=== PATIENT | female | born 2005 | race Caucasian/White ===

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

== ENCOUNTER 2025-06-11 06:46 | Emergency (ER) | payer OTHER ==
--- OUTSIDE RECORDS SUMMARY | 2025-06-11 06:56 | XMS REPORT | Continuity of Care Document ---
Author Name Unknown Address [address] [facility] [address] [place] [address] [facility] 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 Name Role Phone Kaila Bernal Primary Care Physician FRANCISCA TAPIA Attending Clinician BI Conroy Attending Clinician UnaDIONICIO Rod Attending Clinician Unavailable [id number] Attending Clinician Unavailable DOROTHEA RAMIREZ Attending Clinician Unavailab DOROTHEA Garcia Attending Clinician Unavailab Obrien RN, Savi Simmons Attending Clinician Riya Rouse RN, Daja Gardner Attending Clinician Unavail able ALFRED HIGGINS Attending Clinician UnavailALFRED Manzano Attending Clinician UnavailDorothea Mota DO Attending Clinician [phone] Rob [facility] Desean BAGLEY Attending Clinician DESEAN ALZAR Attending Clinician Unavailable Doctor Unassigned, [place] Attending Clinician U navailable Vtc-Lab Attending Clinician Unavailable KEYSHA VENTURA Attending Clinician KEYSHA Hampton Attending Clinician Keysha Hampton MD Attending Clinician + Lily Warren Attending Clinician Unknown, Attending Attending Clinician Unavailab LILY Crawford Attending Clinician Unavailable Doctor Unassigned, [place] Attending Clinician U navailELLIOT Manuel Attending Clinician Unavailable Elliot Chambers MD Attending Clinician [phone] BEN SOOD Admitting Clinician Unavaila ble Payers Payer Name Policy Type Policy Number Effective Date Expirati on Date Source [facility] NETTIE HERNANDEZ-C COPAY FOCUS 9 [id number] 2025 00:00:00 [facility] W/ VICTORIA BENJAMIN OON [id number] 2025 00:00:00 [place] [facility] [id number] 2021 00:00:00 Problems Condition Name Condition Details Condition Category Status Onset Date Resolution Date Last Treatment Date Treating Clinician Comments Source Type 1 diabetes mellitus with ketoacidos is without coma (multi HCC) Type 1 diabetes mellitus with ketoacidos is without coma (multi HCC) Disease Active 05-03 00:00: 00 Victoria gardner Marijuana use Marijuana use Disease Active 05-03 00:00: 00 Victoria Arredondo l DKA, type 1, not at goal DKA, type 1, not at goal Disease Active 04-28 00:00: 00 [facility] Type 1 diabetes mellitus Type 1 diabetes mellitus Disease Active 04-11 00:00: 00 [facility] Allergies, Adverse Reactions, Alerts Allergy Name Allergy Type Status Severity Reaction(s) Onset Date Inactive Date Treating Clinician Comments Source NO KNOWN ALLERGIE S Drug Class Active [facility] Social History Social Habit Start Date Stop Date Quantity Comments Source ASSERTION Not Victoria Benjamin - External Sexual orientation K tanvi Benjamin - External Gender identity Adrienne Benjamin - External History of tobacco use Smokes tobacco daily Victoria Benjamin - External History of Social function 2025-05-30 00:00:00 2025-05-30 00:00:00 Victoria Benjamin - External Sex 2025-02-13 16:50:14 2025-02-13 16:50:14 Female (finding) Victoria Benjamin - External Exposure to SARS-CoV-2 (event) 2023-02-08 00:00:00 2023-02-18 20:29:00 Not sure [facility] Sex assigned at 2003 00:00:00 2005 00:00:00 Victoria Mcdonaldsalomekyle - External Smoking Status Start Date Stop Date Source Tobacco smoking consumption unknown [facility] Smokes tobacco daily 2025-05-03 00:00:00 Victoria Mcdonaldsalomekyle - External Medications Ordered Medication Name Filled Medication Name Start Date Stop Date Current Medication? Ordering Clinician Indication Dosage Frequency Signature (SIG) Comments Components Source Insulin Glargine (Lantus SoloStar) 100 UNIT/ML subcutaneou s Solution Pen-injecto r Insulin Glargine (Lantus SoloStar) 100 UNIT/ML subcutaneou s Solution Pen-injecto r 05-30 00:00: 00 Yes [id number] Inject 25 units daily in the morning. Victoria Mcdonaldsalomekyle - Externa l NaCl 0.9% (NS) bolus infusion 1,000 mL 05-22 18:30: 00 05-22 18:52 :00 No 1000mL at 999 mL/hr, 1,000 mL, IV Infusion, ONCE, 1 dose, On Wed05/22/25 at 1330, [facility] metoclopram beti HCl (REGLAN) injection 10 mg 05-22 17:45: 00 05-22 17:48 :00 No 10mg 10 mg, Slow IV Push, ONCE, 1 dose, On Wed05/22/25 at 1245, JOSELYN [facility] haloperidol lactate (HALDOL) injection 2.5 mg 05-22 17:45: 00 05-22 17:47 :00 No 2.5mg 2.5 mg, Intravenou s, ONCE, 1 dose, On Wed05/22/25 at 1245, STAT, Chemical Restraint: No, Reason for Use: Management of Acute Agitation/ Delirium (NOT CHEMICAL RESTRAINT) , Indication for use of Injectable Psychotrop ics: Other, Please Specify Other Indication : vomiting from THC [facility] Continuous Glucose Sensor (Dexcom G7 Sensor) does not apply Misc Continuous Glucose Sensor (Dexcom G7 Sensor) does not apply Misc 05-08 00:00: 00 Yes [id number] Change sensor every 10 days. Victoria Hallold - Externa l Insulin Lispro (HUMALOG) 100 unit/mL SQ injection Insulin Lispro (HUMALOG) 100 unit/mL SQ injection 05-03 00:00: 00 Yes [id number] 2U Inject 0.02 mL (2 units total) into the skin 3 times daily (before meals). Victoria Hallold - Externa l Insulin Glargine 100 UNIT/ML subcutaneou s Solution Insulin Glargine 100 UNIT/ML subcutaneou s Solution 05-03 00:00: 00 05-10 00:00 :00 No [id number] 10U QD Inject 0.1 mL (10 units total) into the skin daily. Victoria Benjamin - Patela l insulin glargine (LANTUS U-100) injection 10 Units 05-02 14:00: 00 05-01 22:20 :52 No 10U 10 Units, Subcutaneo us, DAILY, First dose (after last modificati on) on Wed05/02/25 at 0900, Until Discontinu ed, Routine [facility] Lantus SoloStar 100 UNIT/ML subcutaneou s Solution Pen-injecto r Lantus SoloStar 100 UNIT/ML subcutaneou s Solution Pen-injecto r 05-02 00:00: 00 05-30 00:00 :00 No INJECT 10 UNITS UNDER THE SKIN EVERY MORNING BEFORE BREAKFAST Victoria Benjamin - Externa l insulin lispro (human) (HumaLOG U-100) injection 2 Units 05-01 22:00: 00 05-01 22:20 :52 No 2U 2 Units, Subcutaneo us, TID MEALS, First dose (after last modificati on) on Wed05/01/25 at 1700, Until Discontinu ed, Routine [facility] insulin glargine (LANTUS U-100) injection 20 Units [id number] 7-15 17:00: 00 05-01 20:21 :05 Yes 20U 20 Units, Subcutaneo us, Q24H, First dose (after last modificati on) on Wed05/01/25 at 1200, Until Discontinu ed, Routine [facility] Sliding Scale Insulin - lispro (humaLOG) [id number] 7-15 12:30: 00 05-01 22:20 :52 Yes Subcutaneo us, AC+HS, First dose (after last modificati on) on Wed05/01/25 at 0730, Until Discontinu ed, Routine [facility] potassium chloride in water (KCL) 20 mEq/100 mL IV infusion 20 mEq potassium chloride in water (KCL) 20 mEq/100 mL IV infusion 20 mEq 05-01 10:45: 00 05-01 12:45 :00 Yes 20meq 20 mEq, IV Infusion, at 50 mL/hr Administer over 2 Hours, ONCE, 1 dose, On Wed05/01/25 at 0545, Routine [facility] magnesium sulfate in water 2 gram/50 mL (4 %) infusion 2 g magnesium sulfate in water 2 gram/50 mL (4 %) infusion 2 g 05-01 08:15: 00 05-01 10:40 :00 Yes 2g 2 g, Intravenou s, ONCE, 1 dose, On Wed05/01/25 at 0315, 50 mL [facility] clonazePAM (KLONOPIN) tablet 1 mg 05-01 06:30: 00 05-01 06:23 :00 No 1mg 1 mg, Oral, TID, 1 dose, First dose (after last modificati on) on Wed05/01/25 at 0130, Routine [facility] KCL (KLOR-CON M20) tablet 20 mEq KCL (KLOR-CON M20) tablet 20 mEq 05-01 03:15: 00 05-01 03:22 :00 Yes 20meq 20 mEq, Oral, ONCE, 1 dose, On Wed04/30/25 at 2215, Routine [facility] insulin glargine 100 unit/mL injection insulin glargine 100 unit/mL injection 05-01 00:00: 00 Yes [id number] 10U inject 10 Units under the skin in the morning. Before breakfast. If not eating or if blood sugar is between 80 and 120 give HALF the dose. If blood sugar less than 80: Eat a meal and recheck. Give half dose of insulin once blood sugar over 120. [facility] insulin lispro, human, 100 unit/mL injection insulin lispro, human, 100 unit/mL injection 05-01 00:00: 00 Yes [id number] 2U inject 2 Units under the skin in the morning and 2 Units at noon and 2 Units in the evening. inject before meals. ? If NOT eating or if blood sugar less than 80: SKIP insulin dose, eat and recheck in 15 minutes until sugar is above 100 twice in a row. ? If eating less than half your meal or if blood sugar is between 80 and 120: Take only half of your insulin dose [facility] Potassium Chloride Jessica ER 20 MEQ oral Tab CR tablet Potassium Chloride Jessica ER 20 MEQ oral Tab CR tablet 05-01 00:00: 00 05-30 00:00 :00 No [id number] 40meq QD Take 2 tablets (40 mEq total) by mouth daily. Victoria gardner insulin lispro (human) (HumaLOG U-100) injection 3 Units insulin lispro (human) (HumaLOG U-100) injection 3 Units 04-30 22:00: 00 05-01 20:21 :05 Yes 3U 3 Units, Subcutaneo us, TID MEALS, First dose (after last modificati on) on Wed04/30/25 at 1700, Until Discontinu ed, Routine [facility] insulin glargine (LANTUS U-100) injection 9 Units insulin glargine (LANTUS U-100) injection 9 Units 04-30 22:00: 00 04-30 21:55 :00 Yes 9U 9 Units, Subcutaneo us, ONCE, 1 dose, On Wed04/30/25 at 1700, Routine [facility] NaCl 0.45% (1/2NS) 1000 mL + KCL 20 mEq NaCl 0.45% (1/2NS) 1000 mL + KCL 20 mEq 04-30 14:45: 00 05-01 22:20 :52 Yes [facility] insulin lispro (human) (HumaLOG U-100) injection 9 Units 04-30 13:00: 00 04-30 17:06 :53 No 9U 9 Units, Subcutaneo us, TID MEALS, First dose on Wed04/30/25 at 0800, Until Discontinu ed, [facility] chloride in [facility] (KCL) 20 mEq/100 mL IV infusion 20 mEq potassium chloride in water (KCL) 20 mEq/100 mL IV infusion 20 mEq 04-30 10:45: 00 04-30 13:22 :28 Yes 20meq 20 mEq, IV Infusion, at 50 mL/hr Administer over 2 Hours, ONCE, 1 dose, On Wed04/30/25 at 0545, Routine [facility] potassium chloride in water 10 mEq/100 mL RTU 10 mEq potassium chloride in water 10 mEq/100 mL RTU 10 mEq 04-30 07:15: 00 04-30 07:46 :00 Yes 10meq 10 mEq, IV Piggyback, ONCE, 1 dose, On Wed04/30/25 at 0215, Administer over 60 Minutes, 100 mL [facility] chloride in water 10 mEq/100 mL RTU 10 mEq potassium chloride in water 10 mEq/100 mL RTU 10 mEq 04-30 04:45: 00 04-30 05:38 :00 Yes 10meq 10 mEq, IV Piggyback, ONCE, 1 dose, On Wed04/29/25 at 2345, Administer over 60 Minutes, 100 mL [facility] Sliding Scale Insulin - lispro (humaLOG) [id number] 7-14 01:00: 00 05-01 05:53 :07 Yes Subcutaneo us, Q4H, First dose on Wed04/29/25 at 2000, Until Discontinu ed, Routine [facility] glucagon HCL injection 1 mg 04-29 21:28: 01 05-01 22:20 :52 No 1mg 1 mg, Intramuscu lar, PRN, Starting on Wed04/29/25 at 1628, Until Wed05/01/25 at 1720, JOSELYN, Low blood sugar, Blood Glucose < or = 70 mg/dL and patient is NPO, unable to swallow or has mental changes. [facility] dextrose 50 % in water (D50W) injection 25 mL 04-29 21:28: 05-01 22:20 :52 No 25mL 25 mL, Slow IV Push, PRN, Starting on Wed04/29/25 at 1628, Until Wed05/01/25 at 1720, JOSELYN, Blood Glucose < or = 70 mg/dL and patient is NPO, unable to swallow or has mental status changes. [facility] droPERidol PF (INAPSINE) 2.5 mg/mL injection 0.625 mg droPERidol PF (INAPSINE) 2.5 mg/mL injection 0.625 mg 04-29 18:15: 00 04-29 19:15 :00 Yes .625mg 0.625 mg, Intramuscu lar, ONCE, 1 dose, On Wed04/29/25 at 1315, Routine, Reason for Use: Nausea/vom iting [facility] proCHLORper azine (COMPAZINE) injection 5 mg proCHLORper azine (COMPAZINE) injection 5 mg 04-29 14:51: 26 05-01 22:20 :52 Yes 5mg 5 mg, Slow IV Push, Q6HPRN, Starting on Wed04/29/25 at 0951, Until Wed05/01/25 at 1720, Routine, Nausea and Vomiting (N/V) [facility] potassium chloride in water (KCL) 20 mEq/100 mL IV infusion 20 mEq potassium chloride in water (KCL) 20 mEq/100 mL IV infusion 20 mEq 04-29 12:15: 00 04-29 16:15 :00 Yes 20meq 20 mEq, IV Infusion, at 50 mL/hr Administer over 2 Hours, Q2H ES, 2 doses, First dose (after last reorder) on Wed04/29/25 at 0715, Last dose on Wed04/29/25 at 0915, Routine [facility] magnesium sulfate in water 2 gram/50 mL (4 %) infusion 2 g magnesium sulfate in water 2 gram/50 mL (4 %) infusion 2 g 04-29 11:00: 00 04-29 11:14 :00 Yes 2g 2 g, Intravenou s, ONCE, 1 dose, On Wed04/29/25 at 0600, 50 mL [facility] potassium chloride in water (KCL) 20 mEq/100 mL IV infusion 20 mEq potassium chloride in water (KCL) 20 mEq/100 mL IV infusion 20 mEq 04-29 08:30: 00 04-29 14:30 :00 Yes 20meq 20 mEq, IV Infusion, at 50 mL/hr Administer over 2 Hours, Q2H ES, 2 doses, First dose on Wed04/29/25 at 0330, Last dose on Wed04/29/25 at 0530, Routine [facility] maalox-lido kisha 2% viscous 1:1 suspension (COMPOUNDED ) maalox-lido kisha 2% viscous 1:1 suspension (COMPOUNDED ) 04-29 04:34: 46 05-01 22:20 :52 Yes 5mL 5 mL, Oral, PRN, Starting on 04/28/25 at 2334, Until Wed05/01/25 at 1720, Routine, Oral mucositis [facility] magnesium sulfate in water 2 gram/50 mL (4 %) infusion 2 g magnesium sulfate in water 2 gram/50 mL (4 %) infusion 2 g 04-29 02:15: 00 04-29 03:15 :00 Yes 2g 2 g, Intravenou s, ONCE, 1 dose, On 04/28/25 at 2115, 50 mL [facility] KCL (KLOR-CON M20) tablet 40 mEq KCL (KLOR-CON M20) tablet 40 mEq 04-29 02:15: 00 04-29 02:49 :00 Yes 40meq 40 mEq, Oral, ONCE, 1 dose, On Wed04/28/25 at 2115, Routine [facility] trimethoben zamide (TIGAN) injection 200 mg trimethoben zamide (TIGAN) injection 200 mg 04-28 21:00: 15 04-29 15:51 :35 Yes 200mg 200 mg, Intramuscu lar, Q6HPRN, Starting on Wed04/28/25 at 1600, Until 04/29/25 at 1051, Routine, Nausea and Vomiting (N/V) [facility] D5W 0.45% NaCl (1/2NS) 1 L + KCL 20 mEq D5W 0.45% NaCl (1/2NS) 1 L + KCL 20 mEq 04-28 20:44: 03 05-01 22:20 :52 Yes IV Infusion, at 250 mL/hr, PRN - SEE INSTRUCTIO NS, Starting on Wed04/28/25 at 1544, Until Wed05/01/25 at 1720, JOSELYN, Blood glucose control [facility] potassium chloride in water (KCL) 20 mEq/100 mL IV infusion 20 mEq potassium chloride in water (KCL) 20 mEq/100 mL IV infusion 20 mEq 04-28 15:00: 00 04-28 16:29 :48 Yes 20meq 20 mEq, IV Infusion, at 50 mL/hr Administer over 2 Hours, Q2H ES, 2 doses, First dose on Wed04/28/25 at 1000, Last dose on Wed04/28/25 at 1200, Routine [facility] proCHLORper azine (COMPAZINE) injection 5 mg proCHLORper azine (COMPAZINE) injection 5 mg 04-28 13:28: 26 04-28 21:00 :06 Yes 5mg 5 mg, Slow IV Push, Q6HPRN, Starting on Wed04/28/25 at 0828, Until Wed04/28/25 at 1600, Routine, Nausea and Vomiting (N/V) [facility] famotidine (PEPCID (PF)) 20 mg in NaCl 0.9% (NS) 5 mL IV push famotidine (PEPCID (PF)) 20 mg in NaCl 0.9% (NS) 5 mL IV push 04-28 13:00: 00 04-30 00:48 :00 Yes 20mg 20 mg, Intravenou s, Q12H, 4 doses, First dose on 04/28/25 at 0800, Last dose on Wed04/29/25 at 2000, Administer over 2 Minutes, 5 mL [facility] proCHLORper azine (COMPAZINE) injection 5 mg proCHLORper azine (COMPAZINE) injection 5 mg 04-28 08:30: 00 04-28 07:42 :00 Yes 5mg 5 mg, Slow IV Push, ONCE, 1 dose, On 04/28/25 at 0330, Routine [facility] maalox/diph enhydrAMINE :lidocaine2 %viscous 1:1:1: suspension (COMPOUNDED ) maalox/diph enhydrAMINE :lidocaine2 %viscous 1:1:1: suspension (COMPOUNDED ) 04-28 07:00: 00 04-28 06:46 :00 Yes 15mL 15 mL, Oral, ONCE, 1 dose, On 04/28/25 at 0200, Routine [facility] ondansetron (ZOFRAN (PF)) injection 4 mg ondansetron (ZOFRAN (PF)) injection 4 mg 04-28 06:03: 18 04-28 13:34 :56 Yes 4mg 4 mg, Slow IV Push, Q8HPRN, Nausea and Vomiting (N/V), Starting on 04/28/25 at 0103, Please give medication over 2-5 minutes. [facility] ondansetron (ZOFRAN (PF)) injection 4 mg 04-28 04:30: 00 04-28 04:28 :00 No 4mg 4 mg, Slow IV Push, ONCE, 1 dose, On Wed04/27/25 at 2330, Administer over 2-5 Minutes, 2 mL [facility] ondansetron (ZOFRAN (PF)) injection 4 mg 04-28 02:45: 00 04-28 02:40 :00 No 4mg 4 mg, Slow IV Push, ONCE, 1 dose, On Wed04/27/25 at 2145, Administer over 2-5 Minutes, 2 mL [facility] NaCl 0.45% (1/2NS) IV infusion 1,000 mL 04-28 01:15: 00 04-28 16:29 :37 No 1000mL at 250 mL/hr, 1,000 mL, IV Infusion, CONTINUOUS , Starting on Wed04/27/25 at 2015, Until Wed04/28/25 at 1129, JOSELYN [facility] insulin regular in 0.9 % NaCl (MYXREDLIN) 100 unit/100 mL (1 unit/mL) RTU IV infusion insulin regular in 0.9 % NaCl (MYXREDLIN) 100 unit/100 mL (1 unit/mL) RTU IV infusion 04-28 01:10: 11 05-01 05:53 :07 Yes 0U/kg/h 0-0.3 Units/kg/h r ?70.3 kg (0-21.09 mL/hr), IV Infusion, TITRATE, Parameters in Admin. Instr., Follow DKA Insulin Rate Adjustment Protocol, Starting on Wed04/27/25 at 2009, THERESAAN T: IF YOU ARE THE NURSE INITIATING THE INSULIN DRIP, in order to be able to adjust rate, change the dose from the MAR from the drop-down menu from units/kg/h r to units/hr. This will send the dosage to the IV pump in units/hr, which aligns with the insulin calculator and nursing practice.* * - Follow 'DKA Insulin Rate Adjustment Protocol' - Start insulin infusion at 0.1 units/kg /hr. When adjusting rate, do not increase rate above 0.3 units/kg/h our. If rate has been at 0.3 units/kg/h r for the past two hours AND blood glucose remains above 200 mg/dL in DKA and above 300 mg/dL in HHS without a drop of at least 10% in glucose levels, NHO for considerat ion of endocrinol ogy consult - Hold insulin and NHO STAT if potassium is less than 3.3 mEq/L. - NHO STAT if blood glucose less than 100 mg/dL or greater than 600 mg/dL or if blood glucose not decreased by 50 mg/dL in the first hour of insulin infusion. - Once blood glucose is less than or equal to 200 mg/dL in patient with DKA or blood glucose is less than or equal to 300 mg/dL in patient with HHS, change to fluids with dextrose. - If during insulin infusion and on dextrose fluids blood glucose is less than 150 mg/dL in DKA or less than 200 mg/dL in HHS, NHO for increase in dextrose provided in continuous fluids. - Once AGAP less than 12, blood glucose less than 200 mg/dL, TCO2 greater than 15 x 2 and patient ready to eat, NHO for SubQ glargine order two hours before stopping insulin infusion. [facility] D5W 0.45% NaCl (1/2NS) 1 L + KCL 20 mEq D5W 0.45% NaCl (1/2NS) 1 L + KCL 20 mEq 04-28 01:09: 46 04-28 20:45 :26 Yes IV Infusion, at 200 mL/hr, PRN - SEE INSTRUCTIO NS, Starting on Wed04/27/25 at 2009, Until 04/28/25 at 1545, JOSELYN, Blood glucose control [facility] NaCl 0.9% (NS) bolus infusion 1,000 mL 04-27 23:45: 00 04-28 01:00 :00 No 1000mL at 999 mL/hr, 1,000 mL, IV Infusion, ONCE, 1 dose, On Wed04/27/25 at 1845, JOSELYN [facility] haloperidol lactate (HALDOL) injection 2.5 mg 04-27 23:00: 00 04-27 23:39 :00 No 2.5mg 2.5 mg, Intravenou s, ONCE, 1 dose, On Wed04/27/25 at 1800, STAT, Chemical Restraint: No, Reason for Use: Management of Acute Agitation/ Delirium (NOT CHEMICAL RESTRAINT) , Indication for use of Injectable Psychotrop ics: Other, Please Specify Other Indication : cannabis vomiting [facility] NaCl 0.9% (NS) bolus infusion 1,000 mL 04-27 22:45: 00 04-27 23:30 :00 No 1000mL at 999 mL/hr, 1,000 mL, IV Infusion, ONCE, 1 dose, On Wed04/27/25 at 1745, JOSELYN [facility] magnesium sulfate in water 2 gram/50 mL (4 %) infusion 2 g 04-27 22:00: 00 04-27 23:31 :00 No 2g 2 g, Intravenou s, ONCE, 1 dose, On Wed04/27/25 at 1700, 50 mL [facility] diphenhydrA MINE (BENADRYL) 12.5 mg/5 mL solution 12.5 mg 04-27 22:00: 00 04-27 22:00 :00 No 12.5mg 12.5 mg, Oral, ONCE, 1 dose, On Wed04/27/25 at 1700, JOSELYN [facility] haloperidol lactate (HALDOL) injection 2.5 mg 04-27 22:00: 00 04-27 22:31 :00 No 2.5mg 2.5 mg, Intravenou s, ONCE, 1 dose, On Wed04/27/25 at 1700, STAT, Chemical Restraint: No, Reason for Use: Management of Acute Agitation/ Delirium (NOT CHEMICAL RESTRAINT) , Indication for use of Injectable Psychotrop ics: Other, Please Specify Other Indication : Vomiting and cannabis use [facility] haloperidol lactate (HALDOL) injection 2.5 mg 04-26 16:15: 00 04-26 16:11 :00 No 2.5mg 2.5 mg, Intravenou s, ONCE, 1 dose, On Wed04/26/25 at 1115, STAT, Chemical Restraint: No, Reason for Use: Management of Acute Agitation/ Delirium (NOT CHEMICAL RESTRAINT) , Indication for use of Injectable Psychotrop ics: Other, Please Specify Other Indication : n/v from thc use [facility] famotidine (PEPCID (PF)) 20 mg in NaCl 0.9% (NS) 5 mL IV push 04-26 16:15: 00 04-26 16:13 :00 No 20mg 20 mg, Intravenou s, ONCE, 1 dose, On Kiera 04/26/25 at 1115, Administer over 2 Minutes, 5 mL [facility] NaCl 0.9% (NS) bolus infusion 1,000 mL 04-26 16:00: 00 04-26 17:19 :00 No 1000mL at 999 mL/hr, 1,000 mL, IV Infusion, ONCE, 1 dose, On Kiera 04/26/25 at 1100, [facility] metoclopram beti HCl (REGLAN) injection 10 mg 04-26 15:15: 00 04-26 15:23 :00 No 10mg 10 mg, Slow IV Push, ONCE, 1 dose, On Kiera 04/26/25 at 1015, [facility] ondansetron 4 mg disintegrat ing tablet 04-26 00:00: 00 05-01 00:00 :00 No [id number] 4mg Take 1 tablet by mouth every 8 hours as needed for Nausea and Vomiting (N/V). [facility] Novolog FlexPen U-100 Insulin aspart 100 unit/mL (3 mL) subcutaneou s 2023-10 0-03 00:00: 00 Yes (3 mL) Nikolas Armendariz insulin aspart U-100 (NOVOLOG FLEXPEN U-100 INSULIN) 100 unit/mL (3 mL) injection 07-14 00:00: 00 05-01 00:00 :00 No [id number] 10U inject 10 Units under the skin in the morning and 10 Units at noon and 10 Units in the evening. inject before meals. [facility] Insulin [place], Disposable, (BD ULTRAFINE III MINI PEN) 31 gauge x 3/16" Ndle 07-14 00:00: 00 05-01 00:00 :00 No [id number] Insulin 3 times daily [facility] Humulin N NPH U-100 Insulin (isophane susp) 100 unit/mL subcutaneou s 06-13 00:00: 00 Yes unit/mL Nikolas Armendariz Novolin N NPH U-100 Insulin isophane 100 unit/mL subcutaneou s susp 06-13 00:00: 00 Yes unit/mL Nikolas Armendariz Tresiba FlexTouch U-100 insulin 100 unit/mL (3 mL) subcutaneou s pen 06-09 00:00: 00 Yes (3 mL) Nikolas Armendariz insulin regular human (HUMULIN R) injection 5 Units 06-07 03:30: 00 06-07 02:38 :00 No 5U 5 Units, Slow IV Push, ONCE, 1 dose, On Wed06/06/24 at 2230, Routine, Indication for insulin: Hyperglyce kandi [facility] cefTRIAXone (ROCEPHIN) 1,000 mg in NaCl 0.9% (NS) 100 mL MINI-BAG 06-07 02:00: 00 06-07 02:41 :00 No 1000mg 1,000 mg, IV Piggyback, ONCE, 1 dose, On Wed06/06/24 at 2100, Administer over 30 Minutes, 100 mL, Reason for Anti-Infec tive: Documented Infection, Documented Infection Site: Urine, Duration of Therapy: Once (ED) [facility] NaCl 0.9% (NS) bolus infusion 500 mL 06-07 02:00: 00 06-07 02:41 :00 No 500mL at 999 mL/hr, 500 mL, IV Infusion, ONCE, 1 dose, On Wed06/06/24 at 2100, STAT [facility] ondansetron (ZOFRAN (PF)) injection 4 mg 06-07 00:45: 00 06-07 00:52 :00 No 4mg 4 mg, Slow IV Push, ONCE, 1 dose, On Wed06/06/24 at 1945, JOSELYN [facility] cefdinir 300 mg capsule 06-07 00:00: 00 Yes mg Nikolas Armendariz cefdinir 300 mg capsule 06-06 00:00: 00 06-17 04:59 :00 No [id number] 300mg Take 1 capsule by mouth every 12 (twelve) hours for 10 days. [facility] [facility] insulin degludec (TRESIBA FLEXTOUCH U-100) 100 unit/mL (3 mL) InPn 06-06 00:00: 00 06-12 04:59 :00 No [id number] inject 53 Units under the skin in the morning for 5 days. [facility] TRIAMCINOLO N OIN 0.1% 05-22 00:00: 00 Yes Nikolas Armendariz predniSONE 20 mg tablet 05-22 00:00: 00 05-01 00:00 :00 No [id number] Take two tablets daily for 6 days, then one tablet daily for 6 days, then half tablet daily for 6 days. [facility] triamcinolo ne acetonide 0.1 % ointment 05-22 00:00: 06-02 04:59 :00 No [id number] Apply to area(s) 2 (two) times daily for 10 days. [facility] ibuprofen 600 mg tablet 02-18 00:00: 00 05-01 00:00 :00 No [id number] 600mg Take 1 tablet by mouth every 8 (eight) hours as needed for Pain (scale 4-6) or Temp > 38.5 C. [facility] doxycycline hyclate 100 mg capsule 02-18 00:00: 00 05-01 00:00 :00 No [id number] 100mg Take 1 capsule by mouth in the morning and 1 capsule in the evening. [facility] 30 days 2021-10 00:00: 00 Yes 100 Nikolas Armendariz TAKE 1 TABLET TWICE A DAY 2021-10 00:00: 00 Yes 500 Nikolas Armendariz APAP/CODEIN E TAB 300-30MG 2021-10 00:00: 00 08-20 00:00 :00 No Nikolas Armendariz INJECT UNDER THE SKIN BEFORE EACH MEAL. MAX DAILY DOSE OF 60 UNITS PER DAY. 2021-10 00:00: 00 08-20 00:00 :00 No Nikolas Armendariz TRESIBA FLEX INJ 100UNIT 2021-10 00:00: 00 08-20 00:00 :00 No Nikolas Armendariz TAKE 1 CAPSULE BY MOUTH ONCE A DAY FOR 5 DAYS 2021-10 00:00: 00 08-20 00:00 :00 No Nikolas Armendariz NOVOLOG INJ 100/ML 2021-10 00:00: 00 08-20 00:00 :00 No Nikolas Armendariz TAKE 1 TABLET BY MOUTH 3 TIMES A DAY 2021-10 00:00: 00 08-20 00:00 :00 No Nikolas Armendariz TAKE 1 TABLET BY MOUTH EVERY 12 HOURS FOR 10 DAYS 2021-10 00:00: 00 08-20 00:00 :00 No Nikolas Armendariz TAKE 1 TABLET BY MOUTH EVERY 12 HOURS FOR 10 DAYS 2021-10 00:00: 00 08-20 00:00 :00 No Nikolas Armendariz DISSOLVE 1 TABLET ON OR UNDER TONGUE EVERY 12 HOURS NEEDED FOR NAUSEA AND VOMITING 2021-10 00:00: 00 08-20 00:00 :00 No 4 Nikolas Armendariz TAKE 1 TABLET TWICE DAILY. 2021-10 00:00: 00 08-20 00:00 :00 No 500 Nikolas Armendariz TAKE 2 TABLETS BY MOUTH TODAY, THEN TAKE 1 TABLET DAILY FOR 4 DAYS 2021-10 00:00: 00 08-20 00:00 :00 No 250 Nikolas Armendariz TAKE 2 TABLETS BY MOUTH EVERY 8 TO 10 HOURS NEEDED FOR PAIN 03-23 00:00: 00 Yes Nikolas Armendariz &lt - 00:00: 00 Yes Nikolas Armendariz Dose Unknown 03-19 00:00: 00 Yes Nikolas Armendariz sulfamethox azole 800 mg-trimetho prim 160 mg tablet 03-19 00:00: 00 Yes 1mg Nikolas Armendariz mupirocin 2 % topical ointment 6- 00:00: 00 Yes 1% Nikolas Armendariz sulfamethox azole 800 mg-trimetho prim 160 mg tablet 6- 00:00: 00 Yes 1mg Nikolas Armendariz valacyclovi r 1 gram tablet 4-05 00:00: 00 Yes 1gram Nikolas Armendariz valacyclovi r 1 gram tablet 2-01 00:00: 00 Yes 1gram Nikolas Armendariz Immunizations Ordered Immunization Name Filled Immunization Name Date Status Comments Source Influenza Virus Vaccine, No Preserv, age 6 months and up Influenza Virus Vaccine, No Preserv, age 6 months and up 2021-07-16 00:00:00 Completed Victoria Benjamin - External meningococcal MCV4P meningococcal MCV4P 00:00:00 Completed Nikolas Armendariz Meningococcal Vaccine- Conjugate(Menactra) Meningococcal Vaccine- Conjugate(Menactra) 2021-07-02 00:00:00 Completed Victoria Dodd External Influenza Virus Vaccine, No Preserv, age 6 months and up Unknown Completed Victoria perales - External Meningococcal Vaccine- Conjugate(Menactra) Unknown Completed Victoria perales - External Vital Signs Vital Name Observation Time Observation Value Comments S ourzafar Systolic blood pressure 2025-05-30 16:03:00 104 mm[Hg] Victoria Quintero ld - External Diastolic blood pressure 2025-05-30 16:03:00 64 mm[Hg] Victoria Quintero ld - External Heart rate 2025-05-30 16:03:00 103 /min Guanako Benjamin - External Body temperature 2025-05-30 16:03:00 36.78 Irma Victoria Benjamin - External Respiratory rate 2025-05-30 16:03:00 18 /min Victoria Benjamin - External Body height 2025-05-30 16:03:00 165.1 cm Adrienne Benjamin - External Body weight 2025-05-30 16:03:00 73.029 kg Adrienne Benjamin - External BMI 2025-05-30 16:03:00 26.79 kg/m2 Adrienne Benjamin - External Oxygen saturation in Arterial blood by Pulse oximetry 2025-05-30 16:03:00 99 /min Victoria Mcdonaldybo ld - External Systolic blood pressure 2025-05-22 18:00:00 130 mm[Hg] [facility] Diastolic blood pressure 2025-05-22 18:00:00 78 mm[Hg] [facility] Heart rate 2025-05-22 18:00:00 118 /min [facility] Respiratory rate 2025-05-22 18:00:00 16 /min [facility] Oxygen saturation in Arterial blood by Pulse oximetry 2025-05-22 18:00:00 98 /min [facility] Body temperature 2025-05-22 17:25:00 37.28 Irma [facility] Body height 2025-05-22 17:25:[address] [facility] Body weight 2025-05-22 17:25:[address] [facility] BMI 2025-05-22 17:25:00 26.63 kg/m2 [facility] Systolic blood pressure 2025-05-10 10:13:00 102 mm[Hg] Victoria Seybo ld - External Diastolic blood pressure 2025-05-10 10:13:00 60 mm[Hg] Victoria Seybo ld - External Heart rate 2025-05-10 10:13:00 100 /min Kelse y Seybold - External Body temperature 2025-05-10 10:13:00 36.78 Irma Victoria Seybold - External Respiratory rate 2025-05-10 10:13:00 18 /min Victoria Seybold - External Body height 2025-05-10 10:13:00 165.1 cm Adrienne ey Seybold - External Body weight 2025-05-10 10:13:00 73.029 kg Adrienne ey Seybold - External BMI 2025-05-10 10:13:00 26.79 kg/m2 Adrienne ey Seybold - External Oxygen saturation in Arterial blood by Pulse oximetry 2025-05-10 10:13:00 99 /min Victoria Seybo ld - External Systolic blood pressure 2025-05-03 16:09:00 110 mm[Hg] Victoria Seybo ld - External Diastolic blood pressure 2025-05-03 16:09:00 64 mm[Hg] Victoria Hallo ld - External Heart rate 2025-05-03 16:09:00 76 /min Guanako naqvi Seybold - External Body temperature 2025-05-03 16:09:00 36.94 Irma Victoria Mcdonaldybold - External Respiratory rate 2025-05-03 16:09:00 18 /min Victoria Mcdonaldybold - External Body height 2025-05-03 16:09:00 165.1 cm Adrienne stringer Seybold - External Body weight 2025-05-03 16:09:00 69.57 kg Adrienne stringer Seybold - External BMI 2025-05-03 16:09:00 25.52 kg/m2 Adrienne stringer Seybold - External Oxygen saturation in Arterial blood by Pulse oximetry 2025-05-03 16:09:00 98 /min Victoria Hallo ld - External Heart rate 2025-05-01 16:00:00 109 /min [facility] Oxygen saturation in Arterial blood by Pulse oximetry 2025-05-01 16:00:00 100 /min [facility] Respiratory rate 2025-05-01 15:30:00 16 /min [facility] Body temperature 2025-05-01 13:00:00 36.61 Irma [facility] Systolic blood pressure 2025-05-01 09:51:00 141 mm[Hg] [facility] Diastolic blood pressure 2025-05-01 09:51:00 100 mm[Hg] [facility] Body height 2025-04-28 06:00:[address] [facility] Body weight 2025-04-27 21:52:[address] [facility] BMI 2025-04-27 21:52:00 25.79 kg/m2 [facility] Systolic blood pressure 2025-04-26 19:01:00 116 mm[Hg] [facility] Diastolic blood pressure 2025-04-26 19:01:00 72 mm[Hg] [facility] Heart rate 2025-04-26 19:01:00 102 /[facility] Body temperature 2025-04-26 19:01:00 36.39 Irma [facility] Respiratory rate 2025-04-26 19:01:00 16 /min [facility] Oxygen saturation in Arterial blood by Pulse oximetry 2025-04-26 19:01:00 98 /min [facility] Body height 2025-04-26 15:04:00 165.1 cm [facility] Body weight 2025-04-26 15:04:[address] [facility] BMI 2025-04-26 15:04:00 25.79 kg/m2 [facility] Systolic blood pressure 2024-07-14 21:22:00 132 mm[Hg] [facility] Diastolic blood pressure 2024-07-14 21:22:00 88 mm[Hg] [facility] Heart rate 2024-07-14 21:22:00 91 /min Un[facility] Body height 2024-07-14 21:22:[address] [facility] Body weight 2024-07-14 21:22:[address] [facility] BMI 2024-07-14 21:22:00 26.01 kg/m2 [facility] Oxygen saturation in Arterial blood by Pulse oximetry 2024-07-14 21:22:00 99 /min [facility] Systolic blood pressure 2024-06-07 03:00:00 111 mm[Hg] [facility] Diastolic blood pressure 2024-06-07 03:00:00 66 mm[Hg] [facility] Heart rate 2024-06-07 03:00:00 88 /min [facility] Respiratory rate 2024-06-07 03:00:00 18 /min [facility] Oxygen saturation in Arterial blood by Pulse oximetry 2024-06-07 03:00:00 100 /min [facility] Body temperature 2024-06-07 00:54:52 36.89 Irma [facility] Body height 2024-06-07 00:09:[address] [facility] Body weight 2024-06-07 00:09:[address] [facility] BMI 2024-06-07 00:09:00 24.13 kg/m2 [facility] Systolic blood pressure 2023-05-22 20:30:00 138 mm[Hg] [facility] Diastolic blood pressure 2023-05-22 20:30:00 90 mm[Hg] [facility] Heart rate 2023-05-22 20:30:00 119 /min [facility] Body temperature 2023-05-22 20:30:00 36.22 Irma [facility] Respiratory rate 2023-05-22 20:30:00 16 /min [facility] Body weight 2023-05-22 20:30:[address] [facility] Oxygen saturation in Arterial blood by Pulse oximetry 2023-05-22 20:30:00 98 /min [facility] Systolic blood pressure 2023-02-19 01:21:00 126 mm[Hg] [facility] Diastolic blood pressure 2023-02-19 01:21:00 91 mm[Hg] [facility] Heart rate 2023-02-19 01:21:00 127 /min [facility] Body temperature 2023-02-19 01:21:00 37.61 Irma [facility] Respiratory rate 2023-02-19 01:21:00 17 /min [facility] Body height 2023-02-19 01:21:[address] [facility] Body weight 2023-02-19 01:21:[address] [facility] BMI 2023-02-19 01:21:00 22.47 kg/m2 [facility] Oxygen saturation in Arterial blood by Pulse oximetry 2023-02-19 01:21:00 97 /min [facility] BP Systolic 2024-07-20 17:12:00 121 mm[Hg] Efra Armendariz BP Diastolic 2024-07-20 17:12:00 78 mm[Hg] Berny Armendariz Weight Measured 2024-07-20 17:12:00 158.60 pounds Nikolas Armendariz Height Measured 2024-07-20 17:12:00 65.00 inches Nikolas F Marcello Body Temperature 2024-07-20 17:12:00 97.90 degrees Nikolas F Marcello Heart Rate 2024-07-20 17:12:00 103.00 /min Step hen F Marcello Respiratory Rate 2024-07-20 17:12:00 Nikolas F Marcello Heart Rate 2024-06-13 08:29:00 89.00 /min Rosalind en F Marcello Respiratory Rate 2024-06-13 08:29:00 Nikolas F Marcello BP Systolic 2024-06-13 08:29:00 111 mm[Hg] Step hen F Marcello BP Diastolic 2024-06-13 08:29:00 75 mm[Hg] Berny phen F Marcello Weight Measured 2024-06-13 08:29:00 148.80 pounds Nikolas F Marcello Height Measured 2024-06-13 08:29:00 65.00 inches Nikolas F Marcello Body Temperature 2024-06-13 08:29:00 97.50 degrees Nikolas F Marcello BP Systolic 2024-06-09 09:46:00 116 mm[Hg] Step hen F Marcelol BP Diastolic 2024-06-09 09:46:00 75 mm[Hg] Berny phen F Marcello Weight Measured 2024-06-09 09:46:00 146.80 pounds Nikolas F Marcello Height Measured 2024-06-09 09:46:00 65.00 inches Nikolas F Marcello Body Temperature 2024-06-09 09:46:00 97.20 degrees Nikolas F Marcello Heart Rate 2024-06-09 09:46:00 90.00 /min Rosalind en F Marcello Respiratory Rate 2024-06-09 09:46:00 Nikolas F Marcello BP Systolic 2022-07-30 14:44:00 134 mm[Hg] Step hen F Marcello BP Diastolic 2022-07-30 14:44:00 96 mm[Hg] Berny phen F Marcello Weight Measured 2022-07-30 14:44:00 147.40 pounds Nikolas F Marcello Height Measured 2022-07-30 14:44:00 65.00 inches Nikolas F Marcello Body Temperature 2022-07-30 14:44:00 98.40 degrees Nikolas F Marcello Heart Rate 2022-07-30 14:44:00 138.00 /min Step hen F Marcello Respiratory Rate 2022-07-30 14:44:00 19.00 /min Nikolas F Marcello BP Systolic 2022-03-18 11:47:00 113 mm[Hg] Step hen F Marcello BP Diastolic 2022-03-18 11:47:00 80 mm[Hg] Berny phen F Marcello Weight Measured 2022-03-18 11:47:00 143.20 pounds Nikolas F Marcello Height Measured 2022-03-18 11:47:00 65.00 inches Nikolas F Marcello Body Temperature 2022-03-18 11:47:00 98.40 degrees Nikolas F Marcello Heart Rate 2022-03-18 11:47:00 124.00 /min Step hen F Marcello Respiratory Rate 2022-03-18 11:47:00 16.00 /min Nikolas F Marcello BP Systolic 2021-11-10 18:08:00 122 mm[Hg] Step hen F Marcello BP Diastolic 2021-11-10 18:08:00 84 mm[Hg] Berny phen F Marcello Weight Measured 2021-11-10 18:08:00 146.40 pounds Nikolas F Marcello Height Measured 2021-11-10 18:08:00 65.00 inches Nikolas F Marcello Body Temperature 2021-11-10 18:08:00 98.30 degrees Nikolas F Marcello Heart Rate 2021-11-10 18:08:00 102.00 /min Step hen F Marcello Respiratory Rate 2021-11-10 18:08:00 16.00 /min Nikolas F Marcello BP Systolic 2021-07-02 16:11:00 123 mm[Hg] Step hen F Marcello BP Diastolic 2021-07-02 16:11:00 82 mm[Hg] Berny phen F Marcello Weight Measured 2021-07-02 16:11:00 166.00 pounds Nikolas F Marcello Height Measured 2021-07-02 16:11:00 65.00 inches Nikolas F Marcello Body Temperature 2021-07-02 16:11:00 98.41 degrees Nikolas F Marcello Heart Rate 2021-07-02 16:11:00 108.00 /min Step hen F Marcello Respiratory Rate 2021-07-02 16:11:00 Nikolas F Marcello Procedures Procedure Date / Time Performed Performing Clinician Source BASIC METABOLIC PANEL (8) 2025-05-30 00:00:00 Victoria Benjamin - External MAGNESIUM 2025-05-30 00:00:00 Victoria perales - External POCT TEST 2025-05-22 17:42:00 Gabby Ramirez ra [facility] URINALYSIS 2025-05-22 17:41:00 Dorothea Ramirez [facility] URINE DRUG (IMMUNOASSAY) - COMPREHENSIVE DRUG SCREEN W/O REFLEX 2025-05-22 17:41:00 Dorothea Ramirez [facility] FENTANYL (IMMUNOASSAY) 2025-05-22 17:41:00 Siria Ramirez [facility] MAGNESIUM 2025-05-22 17:38:00 Dorothea Ramirez [facility] COMP. METABOLIC PANEL (47853) 2025-05-22 17:38:00 Dorothea Ramirez [facility] CBC WITH DIFF 2025-05-22 17:38:00 [facility] + LACTIC ACID 2025-05-22 17:38:00 Dorothea Ramirez [facility] POCT GLUCOSE (AUTOMATED) 2025-05-22 17:30:00 Dorothea Ramirez [facility] MICROALB/CREAT RATIO, RANDM UR 2025-05-10 00:00:00 Victoria Benjamin - External HEMOGLOBIN (HB) A1C 2025-05-10 00:00:00 Chauncey Benjamin - External LIPID PANEL 2025-05-10 00:00:00 Victoria perales - External POCT GLUCOSE (AUTOMATED) 2025-05-01 19:53:00 [facility] POCT GLUCOSE (AUTOMATED) 2025-05-01 16:45:00 Luly [facility] POCT GLUCOSE (AUTOMATED) 2025-05-01 13:06:00 Luly [facility]gins [facility] PHOSPHORUS 2025-05-01 06:31:00 Phan [facility] MAGNESIUM 2025-05-01 06:31:00 Marcinlexii [facility] TROPONIN I 2025-05-01 06:31:00 Vania Shoemaker [facility] BASIC METABOLIC PANEL (NA, K, CL, CO2, GLUCOSE, BUN, CREATININE, CA) 2025-05-01 06:31:00 Jorge Chisholm [facility] CBC WITHOUT DIFF 2025-05-01 06:31:00 Jorge Chisholm [facility] POCT GLUCOSE (AUTOMATED) 2025-05-01 06:30:00 Luly [facility]gins [facility] HB ECG ROUTINE & RHYTHM STRIP 2025-05-01 06:24:13 Vania Shoemaker [facility] POCT GLUCOSE (AUTOMATED) 2025-05-01 00:30:00 Luly Higgins [facility] POCT GLUCOSE (AUTOMATED) 2025-04-30 21:06:00 Luly [facility]gins [facility] BASIC METABOLIC PANEL (NA, K, CL, CO2, GLUCOSE, BUN, CREATININE, CA) 2025-04-30 20:59:00 Jorge Chisholm [facility] POCT GLUCOSE (AUTOMATED) 2025-04-30 17:06:00 Luly [facility]gins [facility] BASIC METABOLIC PANEL (NA, K, CL, CO2, GLUCOSE, BUN, CREATININE, CA) 2025-04-30 15:59:00 Jorge Chisholm [facility] POCT GLUCOSE (AUTOMATED) 2025-04-30 13:44:00 Luly Higgins [facility] POCT GLUCOSE (AUTOMATED) 2025-04-30 12:20:00 Luly [facility]gins [facility] BASIC METABOLIC PANEL (NA, K, CL, CO2, GLUCOSE, BUN, CREATININE, CA) 2025-04-30 09:07:00 Jorge Chisholm [facility] POCT GLUCOSE (AUTOMATED) 2025-04-30 09:03:00 Luly Higgins [facility] POCT GLUCOSE (AUTOMATED) 2025-04-30 07:48:00 Luly [facility]gins [facility] POCT GLUCOSE (AUTOMATED) 2025-04-30 06:16:00 Sood, A lexander [facility] POCT GLUCOSE (AUTOMATED) 2025-04-30 04:40:00 Vineet Sood [facility] MAGNESIUM 2025-04-30 03:22:00 Cindi Arriola [facility] BASIC METABOLIC PANEL (NA, K, CL, CO2, GLUCOSE, BUN, CREATININE, CA) 2025-04-30 03:22:00 Jorge Chisholm [facility] POCT GLUCOSE (AUTOMATED) 2025-04-30 03:17[facility]00 [facility] 2025-04-30 01:45:00 [facility] ([facility]OMATED) 2025-04-29 23:41:00 [facility] ([facility]OMATED) 2025-04-29 21:20:00 [facility] ([facility]OMATED) 2025-04-29 20:22:00 [facility] BASIC METABOLIC PANEL (NA, K, CL, CO2, GLUCOSE, BUN, CREATININE, CA) 2025-04-29 19:21:00 Jorge Chisholm [facility] POCT GLUCOSE (AUTOMATED) 2025-04-29 18:16:00 [facility]SE ([facility]OMATED) 2025-04-29 17:09:00 [facility] 2025-04-29 16:52:41 [facility]) 2025-04-29 16:12:00 [facility] BASIC METABOLIC PANEL (NA, K, CL, CO2, GLUCOSE, BUN, CREATININE, CA) 2025-04-29 16:08:00 Vania Shoemaker [facility] POCT GLUCOSE (AUTOMATED) 2025-04-29 14:56:00 Vineet Sood [facility] POCT GLUCOSE (AUTOMATED) 2025-04-29 13:51:00 Vineet Sood [facility] POCT GLUCOSE (AUTOMATED) 2025-04-29 12:40:00 Vineet Sood [facility] POCT GLUCOSE (AUTOMATED) 2025-04-29 11:36:00 Vineet Sood [facility] GENITAL CULTURE 2025-04-29 10:31:00 Vania Shoemaker [facility] POCT GLUCOSE (AUTOMATED) 2025-04-29 10:18:00 Vineet Sood [facility] MAGNESIUM 2025-04-29 08:42:00 Tiara [facility] BASIC METABOLIC PANEL (NA, K, CL, CO2, GLUCOSE, BUN, CREATININE, CA) 2025-04-29 08:42:00 Vania Shoemaker [facility] DIFF CONSULT INTERPRETATION 2025-04-29 08:42:00 Vania Shoemaker [facility] CBC WITH DIFF 2025-04-29 08:42:00 Tiara Nany [facility] POCT GLUCOSE (AUTOMATED) 2025-04-29 08:41:00 Vineet Sood [facility] HB ECG ROUTINE & RHYTHM STRIP 2025-04-29 07:10:43 Vania Shoemaker [facility] POCT GLUCOSE (AUTOMATED) 2025-04-29 07:01:00 Vineet Sood [facility] POCT GLUCOSE (AUTOMATED) 2025-04-29 06:20:00 Vineet Sood [facility] BASIC METABOLIC PANEL (NA, K, CL, CO2, GLUCOSE, BUN, CREATININE, CA) 2025-04-29 04:52:00 Vania Shoemaker [facility] POCT GLUCOSE (AUTOMATED) 2025-04-29 04:50:00 Vineet Sood [facility] POCT GLUCOSE (AUTOMATED) 2025-04-29 02:47:00 Vineet Sood [facility] POCT GLUCOSE (AUTOMATED) 2025-04-29 02:04:00 Vineet Sood [facility] BASIC METABOLIC PANEL (NA, K, CL, CO2, GLUCOSE, BUN, CREATININE, CA) 2025-04-29 01:30:00 Alondra Still [facility] HIV 1/2 AG-AB WITH REFLEX 2025-04-29 01:30:00 Vania Shoemaker [facility] POCT GLUCOSE (AUTOMATED) 2025-04-29 01:28:00 Vineet Sood [facility] POCT GLUCOSE (AUTOMATED) 2025-04-29 00:46:00 [facility] 2025-04-28 23:27:00 [facility] ([facility]OMATED) 2025-04-28 22:14:00 [facility] ([facility]OMATED) 2025-04-28 20:58:00 [facility]OUTINE & RHYTHM STRIP 2025-04-28 20:51:51 Nany Menjivar [facility] BASIC METABOLIC PANEL (NA, K, CL, CO2, GLUCOSE, BUN, CREATININE, CA) 2025-04-28 20:07:00 Alondra Still [facility] SYPHILIS IGG/IGM 2025-04-28 20:07:00 Vania Shoemaker maría [facility] POCT GLUCOSE (AUTOMATED) 2025-04-28 20:01:00 [facility] 2025-04-28 19:03:00 Jorge Chisholm [facility] GC & CHLAMYDIA AMPLIFIED ASSAY 2025-04-28 19:03:00 Jroge Chisholm [facility] POCT GLUCOSE (AUTOMATED) 2025-04-28 18:00:00 [facility] ([facility]OMATED) 2025-04-28 17:02:00 [facility] BASIC METABOLIC PANEL (NA, K, CL, CO2, GLUCOSE, BUN, CREATININE, CA) 2025-04-28 15:59:00 Alondra Still [facility] POCT GLUCOSE (AUTOMATED) 2025-04-28 15:36:00 Vineet Sood [facility] POCT GLUCOSE (AUTOMATED) 2025-04-28 14:28:00 Vineet Sood [facility] BASIC METABOLIC PANEL (NA, K, CL, CO2, GLUCOSE, BUN, CREATININE, CA) 2025-04-28 13:33:00 Alondra Still [facility] POCT GLUCOSE (AUTOMATED) 2025-04-28 12:44:00 Vineet Sood [facility] AC PANEL 21 + LACTIC ACID 2025-04-28 11:29:00 Vania Shoemaker [facility] POCT GLUCOSE (AUTOMATED) 2025-04-28 11:27:00 Vineet Sood [facility] BASIC METABOLIC PANEL (NA, K, CL, CO2, GLUCOSE, BUN, CREATININE, CA) 2025-04-28 10:25:00 Alondra Still [facility] POCT GLUCOSE (AUTOMATED) 2025-04-28 10:20:00 Vineet Sood [facility] POCT GLUCOSE (AUTOMATED) 2025-04-28 09:02:00 Vineet Sood [facility] POCT GLUCOSE (AUTOMATED) 2025-04-28 08:02:00 Vineet Sood [facility] AC PANEL 21 + LACTIC ACID 2025-04-28 07:08:00 Alondra Still [facility] BASIC METABOLIC PANEL (NA, K, CL, CO2, GLUCOSE, BUN, CREATININE, CA) 2025-04-28 07:04:00 Alondra Still [facility] URINE DRUG (IMMUNOASSAY) - COMPREHENSIVE DRUG SCREEN 2025-04-28 07:04:00 Alondra Still [facility] POCT GLUCOSE (AUTOMATED) 2025-04-28 07:02:00 Vineet Sood [facility] POCT GLUCOSE (AUTOMATED) 2025-04-28 06:02:00 Vineet Sood [facility] POCT GLUCOSE (AUTOMATED) 2025-04-28 04:12:00 Jc Mcfadden [facility] POCT GLUCOSE (AUTOMATED) 2025-04-28 03:05:00 Jc Mcfadden [facility] POCT GLUCOSE(AGE >30DAYS) 2025-04-28 03:00:00 Louisa Mcfadden [facility] POCT GLUCOSE (AUTOMATED) 2025-04-28 01:57:00 Jc Mcfadden [facility] XR CHEST 1 VW 2025-04-28 01:47:58 Sudhir Mcfadden [facility] ACUTE CARE ARTERIAL BLOOD GAS 2025-04-28 00:25:00 Sudhir Mcfadden [facility] LACTIC ACID WITH 2 HOUR REFLEX 2025-04-28 00:25:00 Sudhir Mcfadden [facility] PHOSPHORUS 2025-04-27 22:25:00 Sudhir Mcfadden [facility] LIPASE 2025-04-27 22:25:00 Sudhir Mcfadden [facility] MAGNESIUM 2025-04-27 22:25:00 Jj Sudhir [facility] OSMOLALITY, SERUM OR PLASMA 2025-04-27 22:25:00 Jj Sudhir [facility] BETA HYDROXY-BUTYRATE 2025-04-27 22:25:00 Clare Mcfadden [facility] COMP. METABOLIC PANEL ([id number]) 2025-04-27 22:25:00 Sudhir Mcfadden [facility] CBC WITH DIFF 2025-04-27 22:25:00 Sudhir Mcfadden [facility] GLYCOSYLATED HEMOGLOBIN (A1C) 2025-04-27 22:25:00 Jj [facility] URINALYSIS 2025-04-27 22:25:00 Sudhir Mcfadden [facility] CRITICAL CARE 2025-04-27 21:43:00 Sudhir Mcfadden [facility] EKG-12 LEAD 2025-04-26 18:49:40 Dorothea Ramirez [facility] AC PANEL 21 + LACTIC ACID 2025-04-26 15:26:00 Dorothea Ramirez [facility] TROPONIN I 2025-04-26 15:24:00 Dorothea Ramirez [facility] COMP. METABOLIC PANEL ([id number]) 2025-04-26 15:24:00 Dorothea Ramirez [facility] CBC WITH DIFF 2025-04-26 15:24:00 [facility] 2025-04-26 15:24:00 Dorothea Ramirez [facility] POCT TEST 2025-04-26 15:23:00 Gabby Ramirez ra [facility] POCT GLUCOSE (AUTOMATED) 2024-06-07 03:57:00 Keysha Vaughn [facility] POCT GLUCOSE (AUTOMATED) 2024-06-07 02:38:00 Keysha Vaughn [facility] LIPASE 2024-06-07 00:52:00 Keysha Ventura [facility] COMP. METABOLIC PANEL ([id number]) 2024-06-07 00:52:00 Keysha Ventura [facility] CBC WITH DIFF 2024-06-07 00:52:00 Keysha Ventura [facility] URINALYSIS 2024-06-07 00:52:00 Keysha Ventura [facility] POCT TEST 2024-06-07 00:51:00 Keysha Uribe [facility] ASSIGNMENT OF BENEFITS 2023-05-22 20:25:17 Docto r Unassigned, [place] [facility] NOTICE OF PRIVACY PRACTICES 2023-02-19 01:21:49 Doctor Unassigned, [place] [facility] CONSENT/REFUSAL FOR DIAGNOSIS AND TREATMENT 2023-02-19 01:20:17 Doctor Unassigned, [place] [facility] Plan of Care Planned Activity Planned Date Details Comments Source Encounters Start Date/Time End Date/Time Encounter Type Admission Type Attending Clinicians Care Facility Care Department Encounter ID Source 2025-09-06 10:00:00 2025-09-06 10:00:00 Outpatient FRANCISCA TAPIA [facility] [id number] [facility] 2025-07-12 10:30:00 2025-07-12 10:30:00 Outpatient BI LUND VICTORIA HOPKINS [id number] [facility] 2025-06-07 00:00:00 2025-06-07 00:00:00 Outpatient VICTORIA HOPKINS [id number] [facility] 2025-06-05 00:00:00 2025-06-05 00:00:00 Outpatient VICTORIA HOPKINS [id number] [facility] 2025-06-05 00:00:00 2025-06-05 00:00:00 Outpatient DIONICIO HOOKS [id number] [facility] 2025-05-31 00:00:00 2025-05-31 00:00:00 Outpatient DIONICIO HOOKS [id number] [facility] 2025-05-30 17:15:00 2025-05-30 17:15:00 Outpatient [id number] [facility] [id number] [facility] 2025-05-30 16:30:00 2025-05-30 16:30:00 Outpatient DIONICIO HOOKS [id number] [facility] 2025-05-22 15:00:00 2025-05-22 15:00:00 Outpatient DIONICIO HOOKS [id number] [facility] 2025-05-22 12:30:00 2025-05-22 14:21:00 Emergency X DOROTHEA RAMIREZ [facility] [id number] [facility] 2025-05-22 00:00:00 2025-05-22 00:00:00 Outpatient DIONICIO HOOKS [id number] [facility] 2025-05-20 00:00:00 2025-05-20 00:00:00 Outpatient [facility]IONICIO HOOKS [id number] [facility] 2025-05-10 10:45:00 2025-05-10 10:45:00 Outpatient [id number] VICTORIA HOPKINS [id number] [facility] 2025-05-10 10:00:00 2025-05-10 10:00:00 Outpatient DIONICIO HOOKS [id number] [facility] 2025-05-07 00:00:00 2025-05-07 00:00:00 Outpatient DIONICIO HOOKS [id number] [facility] 2025-05-04 00:00:00 2025-05-04 11:10:14 Telephone Savi Momin Marina R [facility] ..840.114 350.1.13.10 4.2.7.2.686 [id number] [facility] [id number] [facility] 2025-05-03 12:20:00 2025-05-03 12:20:00 Outpatient [id number] VICTORIA HOPKINS [id number] [facility] 2025-05-03 11:00:00 2025-05-03 11:00:00 Outpatient DIONICIO HOOKS [id number] [facility] 2025-05-03 00:00:00 2025-05-03 10:51:10 Transition of Care Daja Rouse Kristi L [address] ..840.114 350.1.13.10 4.2.7.2.686 [id number] [facility] 2025-05-02 00:00:00 2025-05-02 14:39:29 Transition of Care Daja Rouse Kristi L [address] ..840.114 350.1.13.10 4.2.7.2.686 [id number] [facility] 2025-05-02 00:00:00 2025-05-02 00:00:00 Outpatient VICTORIA AGUILARSEY [id number] [facility] 2025-04-27 16:54:00 2025-05-01 17:20:00 Hospital Encounter X ALFRED HIGGINS [facility] [id number] [facility] 2025-04-30 14:00:00 2025-04-30 14:00:00 Outpatient DIONICIO HOOKS VICTORIA [id number] [facility] 2025-04-29 00:00:00 2025-04-29 00:00:00 Outpatient VICTORIA HOPKINS [id number] [facility] 2025-04-26 10:05:00 2025-04-26 14:04:00 Emergency X Dorothea Ramirez [facility] 1.840.114 350.1.13.10 4.2.7.2.686 [id number] [facility] 2024-07-21 00:00:00 2024-08-26 18:26:29 Patient Secure Msg Desean Lazar [facility] 1.840.114 350.1.13.10 4.2.7.2.686 [id number] [facility] 2024-07-14 00:00:00 2024-07-27 15:52:08 Desean Byrd [facility] 1.840.114 350.1.13.10 4.2.7.2.686 [id number] [facility] 2024-07-20 17:05:32 2024-07-20 17:05:32 Outpatient SFA SFA [id number] Nikolas Armendariz 2024-07-20 00:00:00 2024-07-20 00:00:00 Outpatient Visit SFA [id number] Nikolas Armendariz 2024-06-08 00:00:00 2024-07-15 18:28:26 Patient Secure Msg Doctor Unassigned, [place] Doctor Unassigned, [place] [facility] ([facility]) 1.2.840.114 350.1.13.10 4.2.7.2.686 [id number] [facility] 2024-07-14 16:00:00 2024-07-14 17:00:00 Office Visit Desean Lazar [facility] 1.2.840.114 350.1.13.10 4.2.7.2.686 [id number] [facility] 2024-07-14 16:00:00 2024-07-14 16:00:00 Outpatient R [facility] [id number] [facility] 2024-07-14 15:45:00 2024-07-14 16:00:00 Sheet Fed Printer Visit Vtc-Lab Desean Lazar [facility] [place] [facility] 1..840.114 350.1.13.10 4.2.7.2.686 [id number] [facility] 2024-06-13 00:00:00 2024-06-13 00:00:00 Outpatient Visit [facility] [id number] Nikolas Armendariz 2024-06-09 09:40:58 2024-06-09 09:40:58 Outpatient SFA [facility] [id number] Nikolsa Armendariz 2024-06-09 00:00:00 2024-06-09 00:00:00 Outpatient Visit SFA [id number] Nikolas Armendariz 2024-06-06 19:12:00 2024-06-06 23:14:00 Emergency X KEYSHA VENTURA ERIN [facility] [id number] [facility] 2024-06-06 19:12:00 2024-06-06 23:14:00 Emergency Keysha Ventura [facility] 1.2840.114 350.1.13.10 4.2.7.2.686 [id number] [facility] 2023-05-22 15:40:00 2023-05-22 16:00:00 Urgent Care ShuklaParisa waynealejandro Unknown, Attending [facility] 1.2840.114 350.1.13.10 4.2.7.2.686 [id number] [facility] 2023-05-22 15:40:00 2023-05-22 15:44:29 Outpatient R SHUKLA, [facility] [id number] [facility] 2023-05-22 00:00:00 2023-05-22 00:00:00 Orders Only Doctor Unassigned, [place] [facility] 1.2840.114 350.1.13.10 4.2.7.2.686 [id number] [facility] 2023-02-18 20:42:00 2023-02-18 23:18:00 Emergency X GEETAYUKOELLIOT [facility] [id number] [facility] 2023-02-18 20:42:00 2023-02-18 23:18:00 Emergency Elliot Chambers S [facility] 1.840.114 350.1.13.10 4.2.7.2.686 [id number] [facility] 2022-07-30 14:37:59 2022-07-30 14:37:59 Outpatient [facility] [id number] Nikolas Armendariz Results Test Description Test Time Test Comments Results Result Co [facility] 18:12:33* Test Item Value Reference Range Interpretation Comme nts MAGNESIUM (test code = 3218947383) 1.4 mg/dL 1.7-2.4 L Lab Interpretation (test cod e = 71468-5) Abnormal [facility]. METABOLIC PANEL (69139)2025-05-22 18:12:32* Test Item Value Reference Range Interpretation Comme nts NA (test code = 5798212912) 138 mmol/L 135-145 K (test code = 5296121173) 4.1 mmol/L 3.5-5.0 CL (test code = 0931696232) 106 mmol/L 98-108 CO2 TOTAL (test code = 4806408366) 14 mmol/L 23-31 L AGAP (test code = 0134615214) 18 2-16 H BUN (test code = 8255789314) 11 mg/dL 7-23 GLUCOSE (test code = 9551654726) 249 mg/dL 70-110 H CREATININE (test code = 2160-0) 0.33 mg/dL 0.50-1.04 L TOTAL BILI (test code = 1594061786) 0.6 mg/dL 0.1-1.1 CALCIUM (test code = 4766179565) 9.3 mg/dL 8.6-10.6 T PROTEIN (test code = 0911531993) 8.3 g/dL 6.3-8.2 H ALBUMIN (test code = 3485303968) 5 g/dL 3.5-5.0 ALK PHOS (test code = 0126066809) 40 U/L 34-122 ALTv (test code = 1742-6) 21 U/L 5-35 AST(SGOT) (test code = 2779908184) 19 U/L 13-40 eGFR (test code = 90768-2) 151.5 mL/min/1.73m2 CKD-EPI eGFR (2020). Assuming creatinine has been stable day-to-day for at least three months, the eGFR indicates Category G1 (>= 90 mL/min/1.73 m2) Lab Interpretation (test code = 19076-1) Abnormal [facility] [id number] 17:42:00* Test Item Value Reference Range Interpretation Comme nts POCT PREG (test code = 1605) Negative On board controls acceptable with C Line (test code = 3574) Yes Lab Interpretation (test cod e = 13770-7) Normal [facility] GLUCOSE (AUTOMATED)2025-05-22 17:30:37* Test Item Value Reference Range Interpretation Comme nts POCT GLU (test code = 8471558772) 232 mg/dL 70-110 H Lab Interpretation (test cod e = 63238-1) [facility]2025-05-01 19:53:47* Test Item Value Reference Range Interpretation Comme nts POCT GLU (test code = 3425908875) 118 mg/dL 70-110 H Lab Interpretation (test cod e = 49112-7) Abnormal [facility] GLUCOSE (AUTOMATED)2025-05-01 16:48:13* Test Item Value Reference Range Interpretation Comme nts POCT GLU (test code = 8806561217) 127 mg/dL 70-110 H Lab Interpretation (test cod e = 74145-8) Abnormal [facility] GLUCOSE (AUTOMATED)2025-05-01 13:08:14* Test Item Value Reference Range Interpretation Comme nts POCT GLU (test code = 5616043818) 165 mg/dL 70-110 H Lab Interpretation (test cod e = 95013-4) Abnormal [facility] GLUCOSE (AUTOMATED)2025-05-01 06:36:46* Test Item Value Reference Range Interpretation Comme nts POCT GLU (test code = 5539772110) 154 mg/dL 70-110 H Lab Interpretation (test cod e = 79031-6) Abnormal [facility] GLUCOSE (AUTOMATED)2025-05-01 00:32:43* Test Item Value Reference Range Interpretation Comme nts POCT GLU (test code = 5971659157) 95 mg/dL 70-110 Lab Interpretation (test cod e = 47263-3) Normal [facility] GLUCOSE (AUTOMATED)2025-04-30 21:07:12* Test Item Value Reference Range Interpretation Comme nts POCT GLU (test code = 9842140541) 176 mg/dL 70-110 H Lab Interpretation (test cod e = 05598-4) Abnormal [facility] GLUCOSE (AUTOMATED)2025-04-30 17:14:18* Test Item Value Reference Range Interpretation Comme nts POCT GLU (test code = 9131612609) 156 mg/dL 70-110 H Lab Interpretation (test cod e = 87312-2) Abnormal [facility] Metabolic Panel (NA, K, CL, CO2, GLUCOSE, BUN, CREATININE, CA)2025-04-30 16:37:51* Test Item Value Reference Range Interpretation Comme nts NA (test code = 7900686358) 137 mmol/L 135-145 K (test code = 1827817576) 3.6 mmol/L 3.5-5.0 CL (test code = 2990319039) 106 mmol/L 98-108 CO2 TOTAL (test code = 8379238236) 21 mmol/L 23-31 L AGAP (test code = 1274532578) 10 2-16 BUN (test code = 9859456694) 7-23 L GLUCOSE (test code = 1934620619) 137 mg/dL 70-110 H CREATININE (test code = 2160-0) 0.23 mg/dL 0.50-1.04 L CALCIUM (test code = 8934230511) 8.6 mg/dL 8.6-10.6 eGFR (test code = 35859-8) 165.2 mL/min/1.73m2 CKD-EPI eGFR (2020). Assuming creatinine has been stable day-to-day for at least three months, the eGFR indicates Category G1 (>= 90 mL/min/1.73 m2) Lab Interpretation (test code = 44797-8) Abnormal [facility] GLUCOSE (AUTOMATED)2025-04-30 13:45:46* Test Item Value Reference Range Interpretation Comme nts POCT GLU (test code = 8515851043) 118 mg/dL 70-110 H Lab Interpretation (test cod e = 89295-4) Abnormal [facility] GLUCOSE (AUTOMATED)2025-04-30 12:21:14* Test Item Value Reference Range Interpretation Comme nts POCT GLU (test code = 6935293349) 107 mg/dL 70-110 Lab Interpretation (test cod e = 08519-1) Normal [facility] Metabolic Panel (NA, K, CL, CO2, GLUCOSE, BUN, CREATININE, CA)2025-04-30 09:53:12* Test Item Value Reference Range Interpretation Comme nts NA (test code = 4575808354) 139 mmol/L 135-145 K (test code = 5620244221) 3.1 mmol/L 3.5-5.0 L CL (test code = 5760491370) 109 mmol/L 98-108 H CO2 TOTAL (test code = 2481790426) 22 mmol/L 23-31 L AGAP (test code = 1672849104) 8 2-16 BUN (test code = 7198594175) 7-23 L GLUCOSE (test code = 5900213280) 124 mg/dL 70-110 H CREATININE (test code = 2160-0) 0.25 mg/dL 0.50-1.04 L CALCIUM (test code = 5173411778) 7.9 mg/dL 8.6-10.6 L eGFR (test code = 42940-9) 162 mL/min/1.73m2 CKD-EPI eGFR (2020). Assuming creatinine has been stable day-to-day for at least three months, the eGFR indicates Category G1 (>= 90 mL/min/1.73 m2) Lab Interpretation (test code = 25062-9) Abnormal [facility] GLUCOSE (AUTOMATED)2025-04-30 09:11:42* Test Item Value Reference Range Interpretation Comme nts POCT GLU (test code = 8188708591) 132 mg/dL 70-110 H Lab Interpretation (test cod e = 81681-2) Abnormal [facility] GLUCOSE (AUTOMATED)2025-04-30 07:48:41* Test Item Value Reference Range Interpretation Comme nts POCT GLU (test code = 2185960946) 177 mg/dL 70-110 H Lab Interpretation (test cod e = 70312-9) Abnormal [facility] GLUCOSE (AUTOMATED)2025-04-30 06:23:41* Test Item Value Reference Range Interpretation Comme nts POCT GLU (test code = 4024139868) 184 mg/dL 70-110 H Lab Interpretation (test cod e = 93665-9) Abnormal [facility] GLUCOSE (AUTOMATED)2025-04-30 04:46:46* Test Item Value Reference Range Interpretation Comme nts POCT GLU (test code = 6471029028) 122 mg/dL 70-110 H Lab Interpretation (test cod e = 20078-1) Abnormal [facility] GLUCOSE (AUTOMATED)2025-04-30 03:24:13* Test Item Value Reference Range Interpretation Comme nts POCT GLU (test code = 5812105185) 147 mg/dL 70-110 H Lab Interpretation (test cod e = 58130-4) Abnormal [facility] GLUCOSE (AUTOMATED)2025-04-30 01:52:13* Test Item Value Reference Range Interpretation Comme nts POCT GLU (test code = 6409784979) 184 mg/dL 70-110 H Lab Interpretation (test cod e = 75143-1) Abnormal [facility] GLUCOSE (AUTOMATED)2025-04-29 23:41:45* Test Item Value Reference Range Interpretation Comme nts POCT GLU (test code = 6495263066) 135 mg/dL 70-110 H Lab Interpretation (test cod e = 08684-5) Abnormal [facility] GLUCOSE (AUTOMATED)2025-04-29 21:23:42* Test Item Value Reference Range Interpretation Comme nts POCT GLU (test code = 2882324525) 143 mg/dL 70-110 H Lab Interpretation (test cod e = 09190-9) Abnormal [facility] Metabolic Panel (NA, K, CL, CO2, GLUCOSE, BUN, CREATININE, CA)2025-04-29 20:25:58* Test Item Value Reference Range Interpretation Comme nts NA (test code = 9180735044) 137 mmol/L 135-145 K (test code = 4511464178) 3.6 mmol/L 3.5-5.0 CL (test code = 1822414959) 107 mmol/L 98-108 CO2 TOTAL (test code = 8763885841) 17 mmol/L 23-31 L AGAP (test code = 9816949090) 13 2-16 BUN (test code = 0032835991) 7-23 L GLUCOSE (test code = 8578019592) 131 mg/dL 70-110 H CREATININE (test code = 2160-0) 0.24 mg/dL 0.50-1.04 L CALCIUM (test code = 8847818393) 8.8 mg/dL 8.6-10.6 eGFR (test code = 02327-5) 163.6 mL/min/1.73m2 CKD-EPI eGFR (2020). Assuming creatinine has been stable day-to-day for at least three months, the eGFR indicates Category G1 (>= 90 mL/min/1.73 m2) Lab Interpretation (test code = 07035-3) Abnormal [facility] GLUCOSE (AUTOMATED)2025-04-29 20:23:16* Test Item Value Reference Range Interpretation Comme nts POCT GLU (test code = 7516126530) 147 mg/dL 70-110 H Lab Interpretation (test cod e = 11600-9) Abnormal [facility] GLUCOSE (AUTOMATED)2025-04-29 18:17:17* Test Item Value Reference Range Interpretation Comme nts POCT GLU (test code = 9575510342) 131 mg/dL 70-110 H Lab Interpretation (test cod e = 57639-9) Abnormal [facility] GLUCOSE (AUTOMATED)2025-04-29 17:10:16* Test Item Value Reference Range Interpretation Comme nts POCT GLU (test code = 3913789066) 113 mg/dL 70-110 H Lab Interpretation (test cod e = 70181-0) Abnormal [facility] Metabolic Panel (NA, K, CL, CO2, GLUCOSE, BUN, CREATININE, CA)2025-04-29 16:38:21* Test Item Value Reference Range Interpretation Comme nts NA (test code = 0977079333) 135 mmol/L 135-145 K (test code = 7078859816) 3.2 mmol/L 3.5-5.0 L CL (test code = 2901925069) 106 mmol/L 98-108 CO2 TOTAL (test code = 3498770557) 20 mmol/L 23-31 L AGAP (test code = 8852934705) 9 2-16 BUN (test code = 0572043834) 7-23 L GLUCOSE (test code = 1999945472) 126 mg/dL 70-110 H CREATININE (test code = 2160-0) 0.24 mg/dL 0.50-1.04 L CALCIUM (test code = 3507911931) 8.2 mg/dL 8.6-10.6 L eGFR (test code = 35929-5) 163.6 mL/min/1.73m2 CKD-EPI eGFR (2020). Assuming creatinine has been stable day-to-day for at least three months, the eGFR indicates Category G1 (>= 90 mL/min/1.73 m2) Lab Interpretation (test code = 02696-3) [facility]29 16:22:45* Test Item Value Reference Range Interpretation Comme nts POCT GLU (test code = 9013505237) 117 mg/dL 70-110 H Lab Interpretation (test cod e = 47663-0) [facility]2025-04-29 14:57:13* Test Item Value Reference Range Interpretation Comme nts POCT GLU (test code = 8466319867) 131 mg/dL 70-110 H Lab Interpretation (test cod e = 33516-4) [facility]normal [facility]/VmP2951-22-34 14:46:08* Test Item Value Reference Range Interpretation Comme nts Syphilis IgG/IgM (test code = 89863-2) Nonreactive Nonreactive Syphilis Serology Interpretation (test code = 79857-8) No serologic evidence of syphilis. If recent exposure is suspected, retest in 2 to 4 weeks. AUBRIE (test code = AUBRIE) ? [facility] 13:52:42* Test Item Value Reference Range Interpretation Comme nts POCT GLU (test code = 6721340392) 171 mg/dL 70-110 H Lab Interpretation (test cod e = 55734-4) [facility]2025-04-29 12:41:16* Test Item Value Reference Range Interpretation Comme nts POCT GLU (test code = 3434372396) 196 mg/dL 70-110 H Lab Interpretation (test cod e = 16978-2) [facility]2025-04-29 11:47:16* Test Item Value Reference Range Interpretation Comme nts POCT GLU (test code = 4121848311) 169 mg/dL 70-110 H Lab Interpretation (test cod e = 10766-8) [facility]2025-04-29 10:26:13* Test Item Value Reference Range Interpretation Comme nts POCT GLU (test code = 2971262828) 163 mg/dL 70-110 H Lab Interpretation (test cod e = 94580-9) [facility]25-[facility]29 08:43:14* Test Item Value Reference Range Interpretation Comme nts POCT GLU (test code = 8076026462) 175 mg/dL 70-110 H Lab Interpretation (test cod e = 32723-3) Abnormal [facility] GLUCOSE (AUTOMATED)2025-04-29 07:12:13* Test Item Value Reference Range Interpretation Comme nts POCT GLU (test code = 5198338121) 142 mg/dL 70-110 H Lab Interpretation (test cod e = 22822-1) Abnormal [facility] GLUCOSE (AUTOMATED)2025-04-29 06:30:43* Test Item Value Reference Range Interpretation Comme nts POCT GLU (test code = 1738024107) 146 mg/dL 70-110 H Lab Interpretation (test cod e = 60205-2) Abnormal [facility] GLUCOSE (AUTOMATED)2025-04-29 04:53:45* Test Item Value Reference Range Interpretation Comme nts POCT GLU (test code = 3598399386) 161 mg/dL 70-110 H Lab Interpretation (test cod e = 32004-3) [facility] Ag-Ab with Ytioox9294-08-85 03:20:18* Test Item Value Reference Range Interpretation Comme nts HIV Semi-quantitative (test code = 19142-6) 0.14 Negative AUBRIE (test code = AUBRIE) Non-reactive for HIV-1 antigen and HIV-1/HIV-2 antibodies. ?No laboratory evidence of HIV infection. ?Repeat in 2-4 weeks if acute HIV infection is suspected. [facility] GLUCOSE (AUTOMATED)2025-04-29 02:51:43* Test Item Value Reference Range Interpretation Comme nts POCT GLU (test code = 9398382234) 160 mg/dL 70-110 H Lab Interpretation (test cod e = 64592-4) Abnormal [facility] GLUCOSE (AUTOMATED)2025-04-29 02:08:08* Test Item Value Reference Range Interpretation Comme nts POCT GLU (test code = 5697304226) 167 mg/dL 70-110 H Lab Interpretation (test cod e = 21020-1) Abnormal [facility] Metabolic Panel (NA, K, CL, CO2, GLUCOSE, BUN, CREATININE, CA)2025-04-29 02:02:32* Test Item Value Reference Range Interpretation Comme nts NA (test code = 4938193537) 135 mmol/L 135-145 K (test code = 2266886582) 3.5 mmol/L 3.5-5.0 CL (test code = 0808982111) 109 mmol/L 98-108 H CO2 TOTAL (test code = 1155662380) 11 mmol/L 23-31 L AGAP (test code = 5227846651) 15 2-16 BUN (test code = 5431638023) 8 mg/dL 7-23 GLUCOSE (test code = 0126702556) 160 mg/dL 70-110 H CREATININE (test code = 2160-0) 0.29 mg/dL 0.50-1.04 L CALCIUM (test code = 1297741309) 8.9 mg/dL 8.6-10.6 eGFR (test code = 82511-0) 156.3 mL/min/1.73m2 CKD-EPI eGFR (2020). Assuming creatinine has been stable day-to-day for at least three months, the eGFR indicates Category G1 (>= 90 mL/min/1.73 m2) Lab Interpretation (test code = 49013-5) Abnormal [facility] GLUCOSE (AUTOMATED)2025-04-29 01:29:43* Test Item Value Reference Range Interpretation Comme nts POCT GLU (test code = 4293436458) 148 mg/dL 70-110 H Lab Interpretation (test cod e = 45835-6) Abnormal [facility] GLUCOSE (AUTOMATED)2025-04-29 00:48:42* Test Item Value Reference Range Interpretation Comme nts POCT GLU (test code = 3774883162) 129 mg/dL 70-110 H Lab Interpretation (test cod e = 05203-8) Abnormal [facility] GLUCOSE (AUTOMATED)2025-04-28 23:38:14* Test Item Value Reference Range Interpretation Comme nts POCT GLU (test code = 1697672245) 148 mg/dL 70-110 H Lab Interpretation (test cod e = 47758-3) Abnormal [facility] GLUCOSE (AUTOMATED)2025-04-28 22:15:13* Test Item Value Reference Range Interpretation Comme nts POCT GLU (test code = 5673270329) 146 mg/dL 70-110 H Lab Interpretation (test cod e = 30487-1) Abnormal [facility] GLUCOSE (AUTOMATED)2025-04-28 21:08:42* Test Item Value Reference Range Interpretation Comme nts POCT GLU (test code = 9105615255) 106 mg/dL 70-110 Lab Interpretation (test cod e = 52145-2) Normal [facility] Metabolic Panel (NA, K, CL, CO2, GLUCOSE, BUN, CREATININE, CA)2025-04-28 20:56:14* Test Item Value Reference Range Interpretation Comme nts NA (test code = 0202827817) 138 mmol/L 135-145 K (test code = 6881832298) 3.4 mmol/L 3.5-5.0 L CL (test code = 3056839803) 113 mmol/L 98-108 H CO2 TOTAL (test code = 9193541043) 13 mmol/L 23-31 L AGAP (test code = 9071418177) 12 2-16 BUN (test code = 4194089031) 9 mg/dL 7-23 GLUCOSE (test code = 3424357440) 139 mg/dL 70-110 H CREATININE (test code = 2160-0) 0.35 mg/dL 0.50-1.04 L CALCIUM (test code = 0060175169) 9.3 mg/dL 8.6-10.6 eGFR (test code = 34707-8) 149.3 mL/min/1.73m2 CKD-EPI eGFR (2020). Assuming creatinine has been stable day-to-day for at least three months, the eGFR indicates Category G1 (>= 90 mL/min/1.73 m2) Lab Interpretation (test code = 48988-3) Abnormal [facility] GLUCOSE (AUTOMATED)2025-04-28 20:02:08* Test Item Value Reference Range Interpretation Comme nts POCT GLU (test code = 4870668394) 105 mg/dL 70-110 Lab Interpretation (test cod e = 28353-9) Normal [facility] GLUCOSE (AUTOMATED)2025-04-28 18:01:40* Test Item Value Reference Range Interpretation Comme nts POCT GLU (test code = 1037943033) 196 mg/dL 70-110 H Lab Interpretation (test cod e = 65986-7) Abnormal [facility] Metabolic Panel (NA, K, CL, CO2, GLUCOSE, BUN, CREATININE, CA)2025-04-28 17:27:02* Test Item Value Reference Range Interpretation Comme nts NA (test code = 3553014443) 139 mmol/L 135-145 K (test code = 1672206710) 3.4 mmol/L 3.5-5.0 L CL (test code = 6588212785) 114 mmol/L 98-108 H CO2 TOTAL (test code = 8032645381) 9 mmol/L 23-31 L AGAP (test code = 0786065872) 16 2-16 BUN (test code = 3095805472) 10 mg/dL 7-23 GLUCOSE (test code = 7347573552) 71 mg/dL 70-110 CREATININE (test code = 2160-0) 0.33 mg/dL 0.50-1.04 L CALCIUM (test code = 8135159170) 10.1 mg/dL 8.6-10.6 eGFR (test code = 11607-3) 151.5 mL/min/1.73m2 CKD-EPI eGFR (2020). Assuming creatinine has been stable day-to-day for at least three months, the eGFR indicates Category G1 (>= 90 mL/min/1.73 m2) Lab Interpretation (test code = 22603-8) Abnormal [facility] GLUCOSE (AUTOMATED)2025-04-28 17:03:12* Test Item Value Reference Range Interpretation Comme nts POCT GLU (test code = 4173474734) 135 mg/dL 70-110 H Lab Interpretation (test cod e = 72274-8) Abnormal [facility] GLUCOSE (AUTOMATED)2025-04-28 15:38:05* Test Item Value Reference Range Interpretation Comme nts POCT GLU (test code = 7292588538) 103 mg/dL 70-110 Lab Interpretation (test cod e = 11986-4) Normal [facility] GLUCOSE (AUTOMATED)2025-04-28 14:29:04* Test Item Value Reference Range Interpretation Comme nts POCT GLU (test code = 2626746436) 129 mg/dL 70-110 H Lab Interpretation (test cod e = 19150-6) Abnormal [facility] GLUCOSE (AUTOMATED)2025-04-28 12:45:06* Test Item Value Reference Range Interpretation Comme nts POCT GLU (test code = 0774791788) 170 mg/dL 70-110 H Lab Interpretation (test cod e = 78084-5) Abnormal [facility] GLUCOSE (AUTOMATED)2025-04-28 11:38:08* Test Item Value Reference Range Interpretation Comme nts POCT GLU (test code = 4391807613) 189 mg/dL 70-110 H Lab Interpretation (test cod e = 79671-0) [facility] + Lactic [id number] 11:33:09* Test Item Value Reference Range Interpretation Comme nts PH (test code = 7872923721) 7.32 7.32-7.42 PCO2 MCKAYLA (test code = 2034332534) 27 41-51 L PO2 MCKAYLA (test code = 3189544791) 60 25-40 HH HCO3 MCKAYLA (test code = 2530686171) 14 24-28 L AC VBE (test code = 4775753836) -10.6 -3.0-3.0 THB MCKAYLA (test code = 0639585657) 15.7 g/dL 12.0-16.0 %O2HB MCKAYLA (test code = 8570829236) 92.2 % 52.0-63.0 H %COHB MCKAYLA (test code = 0385458699) 0.6 % 0.0-1.5 %METHB MCKAYLA (test code = 0335316751) 0 % 0.4-1.5 L VOL%O2 MCKAYLA (test code = 7533864747) 20.3 % 6.0-12.0 H NA (test code = 6699095437) 143 mmol/L 135-145 K+ (test code = 6922591777) 3.4 mmol/L 3.5-5.0 L AC CA IONZ (test code = 7707664839) 5 mg/dL 4.50-5.30 GLUCOSE (test code = 0015792035) 196 mg/dL 70-110 H LACTIC ACID (test code = 3801864660) 1.53 mmol/L 0.50-2.20 QUES Lab Interpretation (test cod e = 93601-1) Abnormal [facility] GLUCOSE (AUTOMATED)2025-04-28 10:30:36* Test Item Value Reference Range Interpretation Comme nts POCT GLU (test code = 8943967663) 193 mg/dL 70-110 H Lab Interpretation (test cod e = 31648-4) Abnormal [facility] GLUCOSE (AUTOMATED)2025-04-28 09:13:35* Test Item Value Reference Range Interpretation Comme nts POCT GLU (test code = 4325046388) 189 mg/dL 70-110 H Lab Interpretation (test cod e = 71497-9) Abnormal [facility] GLUCOSE (AUTOMATED)2025-04-28 08:08:39* Test Item Value Reference Range Interpretation Comme nts POCT GLU (test code = 1476409060) 207 mg/dL 70-110 H Lab Interpretation (test cod e = 57627-9) Abnormal [facility] Metabolic Panel (NA, K, CL, CO2, GLUCOSE, BUN, CREATININE, CA)2025-04-28 08:03:53* Test Item Value Reference Range Interpretation Comme nts NA (test code = 3951474193) 141 mmol/L 135-145 K (test code = 1132837538) 3.8 mmol/L 3.5-5.0 CL (test code = 1894656957) 112 mmol/L 98-108 H CO2 TOTAL (test code = 9918251138) 5 mmol/L 23-31 L AGAP (test code = 9920544808) 24 2-16 H BUN (test code = 1808044385) 7 mg/dL 7-23 GLUCOSE (test code = 4192663245) 232 mg/dL 70-110 H CREATININE (test code = 2160-0) 0.45 mg/dL 0.50-1.04 L CALCIUM (test code = 5688261599) 9 mg/dL 8.6-10.6 eGFR (test code = 68290-7) 140.6 mL/min/1.73m2 CKD-EPI eGFR (2020). Assuming creatinine has been stable day-to-day for at least three months, the eGFR indicates Category G1 (>= 90 mL/min/1.73 m2) Lab Interpretation (test code = 03934-8) Abnormal [facility] GLUCOSE (AUTOMATED)2025-04-28 07:13:05* Test Item Value Reference Range Interpretation Comme [facility] POCT GLU (test code = 5333154209) 205 mg/dL 70-110 H Lab Interpretation (test cod e = 72655-8) [facility] + Lactic [id number] 07:10:23* Test Item Value Reference Range Interpretation Comme nts PH (test code = 7880559232) 7.18 7.32-7.42 LL PCO2 MCKAYLA (test code = 2412219964) 27 41-51 L PO2 MCKAYLA (test code = 3068596082) 34 25-40 HCO3 MCKAYLA (test code = 7299120652) 10 24-28 L AC VBE (test code = 4124005253) -16.6 -3.0-3.0 THB MCKAYLA (test code = 0379705756) 15.9 g/dL 12.0-16.0 %O2HB MCKAYLA (test code = 0524865268) 66.4 % 52.0-63.0 H %COHB MCKAYLA (test code = 5334302720) 0.7 % 0.0-1.5 %METHB MCKAYLA (test code = 6326266415) 0.3 % 0.4-1.5 L VOL%O2 MCKAYLA (test code = 5511482172) 14.8 % 6.0-12.0 H NA (test code = 2634025228) 143 mmol/L 135-145 K+ (test code = 3921861020) 3.9 mmol/L 3.5-5.0 AC CA IONZ (test code = 3868265034) 5.1 mg/dL 4.50-5.30 GLUCOSE (test code = 0984827704) 227 mg/dL 70-110 H LACTIC ACID (test code = 1824123768) 2.06 mmol/L 0.50-2.20 QUES Lab Interpretation (test cod e = 82309-6) Abnormal [facility] GLUCOSE (AUTOMATED)2025-04-28 06:08:07* Test Item Value Reference Range Interpretation Comme nts POCT GLU (test code = 6583036507) 184 mg/dL 70-110 H Lab Interpretation (test cod e = 93262-7) Abnormal [facility] GLUCOSE (AUTOMATED)2025-04-28 04:23:04* Test Item Value Reference Range Interpretation Comme nts POCT GLU (test code = 1766996331) 176 mg/dL 70-110 H Lab Interpretation (test cod e = 60392-5) Abnormal [facility] GLUCOSE(AGE >30DAYS)2025-04-28 04:12:00* Test Item Value Reference Range Interpretation Comme nts POCT Glu (age>30days) (test code = 3342) 176 mg/dL 70-110 A Lab Interpretation (test cod e = 28394-6) Abnormal [facility] GLUCOSE (AUTOMATED)2025-04-28 03:08:32* Test Item Value Reference Range Interpretation Comme nts POCT GLU (test code = 7479146865) 207 mg/dL 70-110 H Lab Interpretation (test cod e = 30130-8) Abnormal [facility] GLUCOSE(AGE >30DAYS)2025-04-28 03:00:00* Test Item Value Reference Range Interpretation Comme nts POCT Glu (age>30days) (test code = 3342) 207 mg/dL 70-110 A Lab Interpretation (test cod e = 54635-3) [facility] 1 [id number] 02:37:37Ordering physician: SUDHIR MCFADDEN Indication: Shortness of breath, vomiting Comparison: None Technical quality: Adequate Findings: Single AP view of the chest. The cardiopericardial silhouette iswithin normal limits. The lungs are clear bilaterally. The visualized bonythorax is intact. No free air is seen under either hemidiaphragm.[facility] GLUCOSE (AUTOMATED) 2025-04-28 01:59:04* Test Item Value Reference Range Interpretation Comme nts POCT GLU (test code = 7394572979) 220 mg/dL 70-110 H Lab Interpretation (test cod e = 99155-1) Abnormal [facility] GLUCOSE(AGE >30DAYS)2025-04-28 01:57:00* Test Item Value Reference Range Interpretation Comme nts POCT Glu (age>30days) (test code = 3342) 220 mg/dL 70-110 A Lab Interpretation (test cod e = 59562-1) Abnormal [facility] Arterial Blood Gas.2025-04-28 00:35:53* Test Item Value Reference Range Interpretation Comme nts PH (test code = 2) 7.06 7.35-7.45 LL PCO2 (test code = 3149828066) 31 35-45 L PO2 (test code = 0591010530) 32 80-100 LL HCO3 (test code = 2395336458) 8 22-26 L BE (test code = 3586607605) -20.8 -3.0-3.0 L Lab Interpretation (test cod e = 31467-1) [facility] 2 HOUR [id number] 00:34:57* Test Item Value Reference Range Interpretation Comme nts LACTIC ACID (test code = 9389328222) 1.96 mmol/L 0.50-2.20 Lab Interpretation (test cod e = 17227-1) Normal [facility] Center[facility] [id number] 21:43:00HoSudhir almanza DO ? ? 04/27/2025 11:02 PMCritical Care Performed by: Sudhir Mcfadden DOAuthorized by: Sudhir Mcfadden DO ?Critical care provider statement: ?Critical care time (minutes): ?37 ?Critical care time was exclusive of: ?Separately billable procedures and treating other patients and teaching time ?Critical care was necessary to treat or prevent imminent or life-threatening deterioration of the following conditions: ?Endocrine crisis ?Critical care was time spent personally by me on thefollowing activities: ?Evaluation of patient's response to treatment, examination of patient, re-evaluation of patient's condition, pulse oximetry and ordering and review of radiographic studies ?Care discussed with: accepting provider at another facility ?[facility] CBC WITH [id number] 17:02:15* Test Item Value Reference Range Interpretation Comme nts WBC (test code = 6690-2) 25.46 4.30-11.10 H RBC (test code = 789-8) 4.96 3.93-5.25 HGB (test code = 718-7) 15.5 g/dL 11.6-15.0 H HCT (test code = 4544-3) 43.6 % 35.7-45.2 MCV (test code = 787-2) 87.9 fL 80.6-95.5 MCH (test code = 785-6) 31.3 pg 25.9-32.8 MCHC (test code = 786-4) 35.6 g/dL 31.6-35.1 H RDW-SD (test code = 72694-9) 38.4 fL 39.0-49.9 L RDW-CV (test code = 788-0) 12 % 12.0-15.5 PLT (test code = 777-3) 359 166-358 H MPV (test code = 27368-6) 10.4 fL 9.5-12.9 NRBC/100 WBC (test code = 9879369600) 0 0.0-10.0 NRBC x10^3 (test code = 1369555794) See_Comment [Automated message] The system which generated this result transmitted reference range: 10*3/?L. The reference range was not used to interpret this result as normal/abnormal. GRAN MAT (NEUT) % (test code = 770-8) 84.1 % IMM GRAN % (test code = 4950263931) 0.6 % LYMPH % (test code = 736-9) 11.3 % MONO % (test code = 5905-5) 3.6 % EOS % (test code = 713-8) 0.2 % BASO % (test code = 706-2) 0.2 % GRAN MAT x10^3(ANC) (test code = 3029289342) 21.42 10*3/uL 1.88-7.09 H IMM GRAN x10^3 (test code = 9898132135) 0.15 10*3/uL 0.00-0.06 H LYMPH x10^3 (test code = 731-0) 2.87 10*3/uL 1.32-3.29 MONO x10^3 (test code = 742-7) 0.91 10*3/uL 0.33-0.92 EOS x10^3 (test code = 711-2) 0.05 10*3/uL 0.03-0.39 BASO x10^3 (test code = 704-7) 0.06 10*3/uL 0.01-0.07 Lab Interpretation (test code = 98475-3) [facility]normal [facility] [id number] 16:29:23* Test Item Value Reference Range Interpretation Comme nts TROPONIN I (test code = 8598128415) 0.003 ng/mL <=0.034 AUBRIE (test code = AUBRIE) Reference (Normal) Range (defined by the 99th percentile reference limit): <= 0.034 ng/mL Note: Cardiac troponin begins to rise 3-4 hours after the onset of ischemia. Repeat in 4-6 hours if the sample was drawn within 3-4 hours of the onset of the symptom and found normal. Diagnosis of myocardial injury is made with acute changes in cTn concentrations with at least one serial sample above the 99th percentile upper reference limit (URL), taken together with the patient's clinical presentation. Biotin has been reported to cause a negative bias, interpret results relative to patient's use of biotin. Lab Interpretation (test code = 94305-4) Normal [facility] MET[facility]OLIC PANEL (48904)2025-04-26 16:17:40* Test Item Value Reference Range Interpretation Comme nts NA (test code = 6994748634) 138 mmol/L 135-145 K (test code = 0269922892) 3.7 mmol/L 3.5-5.0 CL (test code = 5500287503) 103 mmol/L 98-108 CO2 TOTAL (test code = 3187607625) 17 mmol/L 23-31 L AGAP (test code = 6558218980) 18 2-16 H BUN (test code = 5214011302) 12 mg/dL 7-23 GLUCOSE (test code = 9691723275) 334 mg/dL 70-110 H CREATININE (test code = 2160-0) 0.32 mg/dL 0.50-1.04 L TOTAL BILI (test code = 2150211750) 0.7 mg/dL 0.1-1.1 CALCIUM (test code = 2599510332) 9.4 mg/dL 8.6-10.6 T PROTEIN (test code = 5783452594) 8.7 g/dL 6.3-8.2 H ALBUMIN (test code = 2274073559) 5.1 g/dL 3.5-5.0 H ALK PHOS (test code = 6951609734) 59 U/L 34-122 ALTv (test code = 1742-6) 24 U/L 5-35 AST(SGOT) (test code = 3553411825) 24 U/L 13-40 eGFR (test code = 18547-8) 152.6 mL/min/1.73m2 CKD-EPI eGFR (2020). Assuming creatinine has been stable day-to-day for at least three months, the eGFR indicates Category G1 (>= 90 mL/min/1.73 m2) Lab Interpretation (test code = 14723-2) Abnormal [facility] [id number] 15:28:00* Test Item Value Reference Range Interpretation Comme nts POCT PREG (test code = 1605) Negative On board controls acceptable with C Line (test code = 3574) Yes POCT PREG LOT # (test code = 3575) [id number] POCT PREG TEST DATE ( test code = 3576) 2026-09-12 Lab Interpretation (test cod e = 88082-1) Normal [facility] GLUCOSE (AUTOMATED)2024-06-07 03:58:19* Test Item Value Reference Range Interpretation Comme nts POCT GLU (test code = 9266051814) 185 mg/dL 70-110 H Lab Interpretation (test cod e = 89881-9) Abnormal [facility] GLUCOSE (AUTOMATED)2024-06-07 02:38:47* Test Item Value Reference Range Interpretation Comme nts POCT GLU (test code = 6002139634) 252 mg/dL 70-110 H Lab Interpretation (test cod e = 39683-6) Abnormal [facility]. Metabolic Panel (04735)2024-06-07 01:34:49* Test Item Value Reference Range Interpretation Comme nts NA (test code = 7454673330) 137 mmol/L 135-145 K (test code = 1019987316) 3.7 mmol/L 3.5-5.0 CL (test code = 6189316477) 99 mmol/L 98-108 CO2 TOTAL (test code = 9959610066) 25 mmol/L 23-31 AGAP (test code = 1585420135) 13 2-16 BUN (test code = 6885428723) 13 mg/dL 7-23 GLUCOSE (test code = 3341367857) 293 mg/dL 70-110 H CREATININE (test code = 2160-0) 0.39 mg/dL 0.50-1.04 L TOTAL BILI (test code = 1820007327) 0.6 mg/dL 0.1-1.1 CALCIUM (test code = 8980497612) 9.5 mg/dL 8.6-10.6 T PROTEIN (test code = 8199907744) 8.4 g/dL 6.3-8.2 H ALBUMIN (test code = 9682920143) 5.1 g/dL 3.5-5.0 H ALK PHOS (test code = 9852177479) 46 U/L 34-122 ALTv (test code = 1742-6) 19 U/L 5-35 AST(SGOT) (test code = 7289619544) 17 U/L 13-40 eGFR (test code = 58160-7) 146.4 mL/min/1.73m2 CKD-EPI eGFR (2020). Assuming creatinine has been stable day-to-day for at least three months, the eGFR indicates Category G1 (>= 90 mL/min/1.73 m2) Lab Interpretation (test code = 87874-7) [facility]normal [facility] CenterLipase2024-08-[facility] 01:34:29* Test Item Value Reference Range Interpretation Comme nts LIPASE (test code = 2453991790) 41 U/L 0-220 Lab Interpretation (test cod e = 60260-8) Normal [facility] CenterCbc with [id number] 01:27:50* Test Item Value Reference Range Interpretation Comme nts WBC (test code = 6690-2) 12.68 4.30-11.10 H RBC (test code = 789-8) 4.54 3.93-5.25 HGB (test code = 718-7) 14.0 g/dL 11.6-15.0 HCT (test code = 4544-3) 41.2 % 35.7-45.2 MCV (test code = 787-2) 90.7 fL 80.6-95.5 MCH (test code = 785-6) 30.8 pg 25.9-32.8 MCHC (test code = 786-4) 34.0 g/dL 31.6-35.1 RDW-SD (test code = 43601-3) 41.6 fL 39.0-49.9 RDW-CV (test code = 788-0) 12.7 % 12.0-15.5 PLT (test code = 777-3) 359 166-358 H MPV (test code = 06125-7) 10.4 fL 9.5-12.9 NRBC/100 WBC (test code = 4761136102) 0.0 0.0-10.0 NRBC x10^3 (test code = 7230870149) See_Comment [Automated messa ge] The system which generated this result transmitted reference range: 10*3/?L. The reference range was not used to interpret this result as normal/abnormal. GRAN MAT (NEUT) % (test code = 770-8) 65.2 % IMM GRAN % (test code = 6563543239) 0.30 % LYMPH % (test code = 736-9) 27.5 % MONO % (test code = 5905-5) 6.2 % EOS % (test code = 713-8) 0.5 % BASO % (test code = 706-2) 0.3 % GRAN MAT x10^3(ANC) (test code = 5295775800) 8.27 10*3/uL 1.88-7.09 H IMM GRAN x10^3 (test code = 3363970309) 0.04 10*3/uL 0.00-0.06 LYMPH x10^3 (test code = 731-0) 3.49 10*3/uL 1.32-3.29 H MONO x10^3 (test code = 742-7) 0.78 10*3/uL 0.33-0.92 EOS x10^3 (test code = 711-2) 0.06 10*3/uL 0.03-0.39 BASO x10^3 (test code = 704-7) 0.04 10*3/uL 0.01-0.07 Lab Interpretation (test code = 88228-9) [facility]normal [facility] CenterPOMN [id number] 00:51:00* Test Item Value Reference Range Interpretation Comme nts POCT PREG (test code = 1605) Negative On board controls acceptable with C Line (test code = 3574) Yes POCT PREG LOT # (test code = 3575) [id number] POCT PREG TEST DATE ( test code = 3576) 2025-09-25 Lab Interpretation (test cod e = 15294-4) Normal [facility] CenterCULTWALTHALL [facility], [id number] 11:40:24SPECIMEN NUMBER: [id number] CULTURE, ROUTINE SPECIMEN NUMBER: [id number] SPECIMEN COMMENT: BACK SOURCE: BACK REPORT STATUS: FINAL DIRECT GRAM STAIN: NO WBCs SEEN RARE GRAM POSITIVE COCCI ISOLATE NUMBER 1: ORGANISM: 03/20/2022 MODERATE STAPHYLOCOCCUS SPECIES IDENTIFICATION: 03/21/2022 METHICILLIN RESISTANT STAPHYLOCOCCUS AUREUS (MRSA) MRSA CLINDAMYCIN SENSITIVE <=0.25 *1 Note 1:D-TEST NEGATIVE. NO INDICATION OF INDUCIBLE RESISTANCE. CLINDAMYCIN IS SENSITIVE.ERYTHROMYCIN RESISTANT >4OXACILLIN RESISTANT >2RIFAMPIN SENSITIVE <=1TETRACYCLINE SENSITIVE <=1TRIMETH/SULFA SENSITIVE *2 Note 2: <=0.5/9.5VANCOMYCIN SENSITIVE 1 NOTE: NUMBERS DISPLAYED REPRESENT MINIMUM INHIBITORY CONCENTRATION (MATEUS) WHICH IS EXPRESSED IN MCG/ML. UNLESS OTHERWISE INDICATED, ALL TESTING PERFORMED [facility] [address] [place] [address] CARDROOM HAND: LEVY BERRY M.D. CLIA NUMBER [id number] [place]. [id number], [id number] 00:00:00* Test Item Value Reference Range Interpretation Comme nts CULTURE, ROUTINE (test code = 42566) SPECIMEN NUMBER: [id number] Nikolas ArmendarizCULTURE, [id number] 00:00:00* Test Item Value Reference Range Interpretation Comme nts CULTURE, ROUTINE (test code = 57519) SPECIMEN NUMBER: [id number] Nikolas ArmendarizCULTWALTHALL COUNTY GENERAL [facility]PITAL, [id number] 00:00:00* Test Item Value Reference Range Interpretation Comme nts CULTURE, ROUTINE (test code = 36483) SPECIMEN NUMBER: [id number] Nikolas Armendariz Consult Notes Date/Time Note Provider Source 2025-04-28 18:32:04 Associated Order(s): CONSULT ENDOCRINOLOGY Images from the original note were not included. Endocrinology Consult Note Consultation requested by: Service: ICU Reason for Consultation: DKA Date of Service: 04/28/2025 HPI Patient is a 19 year old /White female with a past medical history of type 1 diabetes who presents as transfer from [facility] for management of DKA. Pt reports vomiting and poor po intake x5 days. Admits to noncompliance with insulin and says that she doesn't regularly check her sugars at home. Says she has had DKA before but has never felt this bad. Reports severe heartburn 2/2 vomiting. Currently denies abdominal pain, nausea, dysuria. Reports regular bowel movements. Denies any home meds aside from occasional insulin. Reports regular marijuana use and vapes daily. Presented to [facility] 04/26/25 for cc of vomiting. Was discharged home same day w/ zofran and instructions to take home insulin and f/u w/ PCP. Sx worsened leading her to go back to [facility] 04/27. Diabetes Hx: diagnosed at 2013 Diabetes complications: none Admitted to 2/2 diabetes? Per patient report only hospitalized once this year for diabetes History of diabetes regimen: Back in 2020 she was on tresiba about 35 units per patient and mother report; however her insurance changed, she is only on tresiba but cannot get the mealtime insulin; she states she gives herself insulin based on her glucose readings, but does not really know the dose or insulin regimen Hypoglycemia hx: none Hypoglycemia unawareness? None per patient report Symptoms of hyperglycemia: Polyuria: yes,PolydipsiaYes, Polyphagia No, Weight loss 6 lbs weight loss with throwing up over the past 4 days ) Blood glucose monitoring? None, she knows she needs to but she doesn't. Living situation and support: lives at home with her mom in [place]. Diabetes doctor: she saw a HULL BUILDER back in 2023 but could not follow up due to insurance issues; prior to that she saw a pediatric fire production operator Dr. Li Family hx of diabetes: dad and grandmother had type 1 HX of steroid use, including intra-articular injections: None per chart review HX of transfusions or EPO in last 6 months: None per chart review PAST MEDICAL HISTORY History reviewed. No pertinent past medical history. History reviewed. No pertinent surgical history. No family history on file. ALLERGIES Patient has no known allergies. REVIEW OF SYSTEMS Review of Systems Constitutional: Negative for chills and fever. Respiratory: Positive for shortness of breath. Negative for cough. Cardiovascular: Positive for chest pain and palpitations. Gastrointestinal: Positive for nausea and vomiting. Negative for constipation and diarrhea. PHYSICALEXAM BP (!) 168/89 | Pulse 136 | Temp 36.6 ?C (97.9 ?F) (Axillary) | Resp 19 | Ht 1.651 m (5' 5") | Wt 70.3 kg (155 lb) | LMP 04/12/2025 | SpO2 100% | BMI 25.79 kg/m? General: Patient appears well in no apparent distress HEENT: EOMI, normal conjunctiva Lungs: clear to auscultation, no accessory muscle use Cardiovascular: RRR Abdomen: soft, nontender Musculoskeletal: no tenderness or deformities Integumentary: warm, dry, (-) cervical acanthosis Neuro: no tremors, no focal deficits Sensory exam of the foot is normal. LABORATORY Recent Labs 07/14/24 1648 04/27/25 1725 HGBA1C 11.0* 12.0* CREATININE (mg/dL) Date Value 04/28/2025 0.38 (L) 04/28/2025 0.45 (L) 04/27/2025 0.45 (L) 04/26/2025 0.32 (L) 07/14/2024 0.42 (L) There are no current results on file for these tests and/or test for 1 year. MEDICATIONS Hospital Medications: Current Facility-Administered Medications Medication Dose Route Frequency Last Rate Last Admin famotidine (PEPCID (PF)) 20 mg in NaCl 0.9% (NS) 5 mL IV push 20 mg Intravenous Q12H 20 mg at 04/28/25 0745 potassium chloride 40 mEq in 100 mL IVPB 40 mEq Intravenous ONCE proCHLORperazine (COMPAZINE) injection 5 mg 5 mg Slow IV Push Q6HPRN D5W 0.45% NaCl (1/2NS) 1 L + KCL 20 mEq IV Infusion PRN - SEE INSTRUCTIONS 200 mL/hr at 04/28/25 0540 New Bag at 04/28/25 0540 insulin regular in 0.9 % NaCl (MYXREDLIN) 100 unit/100 mL (1 unit/mL) RTU IV infusion 0-0.3 Units/kg/hr IV Infusion TITRATE 21.09 mL/hr at 04/28/25 0754 21.09 Units/hr at 04/28/25 0754 NaCl 0.45% (1/2NS) IV infusion 1,000 mL 1,000 mL IV Infusion CONTINUOUS Stopped at 04/27/25 3596 ASSESSMENT and PLAN Problem List: Diabetic Ketoacidosis 2/2 uncontrolled type 1 Diabetes Mellitus, A1c: 12% on admission. Noncompliance with medication regimen, lost to follow up. Comments: 19 year old /White female with a past medical history of type 1 diabetes who presents as transfer from [facility] for management of DKA. Not on insulin pump. Only on tresiba but noncompliant with blood sugar checks and taking medications, also lost to follow up with fire production operator and PCP. Recommendations: Continue insulin DKA protocol Please use insulin drip adjustment protocol. Check BMP Q3h. If sodium is normal or high, consider using 1/2 NSS at 200-250cc/hr. Start replacement potassium once K <5.5. For DKA, D5W 1/2 NS should start running at 200 cc/hr when BG reaches 200-250 mg/dL (D10W at half rate if fluid volume an issue). For HHS, dextrose should be added to fluids when BG <300mg/dL. Can increase dextrose fluid rate of insulin rate <0.05U/kg/hr and BG <150. When DKA is resolved (PCO2 > 15 X 2 , anion gap < 12, glucose </= 200 mg/dL. Ideally, patient able to tolerate PO), please transition to subcutaneous insulin by using the DKA transition order set and schedule: 38 lantus Q24 hrs, 10 lispro TID with meals, SSI Q4 hr 1:40. If this happens in the middle of the night, best decision would be to wait till the morning and transition 2 hours before breakfast to allow patient to eat and avoid risk of hypoglycemia. Please obtain 2 BMPs after stopping insulin infusion (also in order set) to make sure patient remains metabolically stable. If transitioned and patient having poor appetite, please keep on fluids with dextrose at 200 cc/hr. If patient no tolerating PO but DKA is resolved can consider transitioning to SubQ insulin and continuing dextrose fluids. Only start basal insulin at 0.25U/kg/day as glargine and sliding scale Q4hr Lispro in this case. Patient seen and discussed with Dr. Higgins. Abigail Bruner DO Endocrinology Fellow PGY4 [facility] Cosigned by Erich Higgins MD at 05/01/2025 11:43 AM CDT Associated attestation - Erich Higgins MD - 05/01/2025 11:43 AM CDT I saw and evaluated Mr. Nuria Solitario with Dr. Bruner on 04/28/25 and actively participated in medical decision making. I reviewed the note and agree with the findings and the plan of care as documented in the note and made appropriate addendums where necessary. Erich Higgins MD Cnc Machine Programmer Endocrinology INTERNAL MEDICINE [facility] - Health History and Physical Notes Date/Time Note Provider Source 2025-04-28 00:47:36 MICU ADMIT H&P Date of Service: 04/28/2025 ICU Admit date:04/28/25 Intubation Date: n/a CHIEF COMPLAINT: DKA HISTORY OF PRESENT ILLNESS Nuria Solitario is a 19 year old female w/ pmhx of type 1 diabetes who presents as transfer from [facility] for management of DKA. Pt reports vomiting and poor po intake x5 days. Admits to noncompliance with insulin and says that she doesn't regularly check her sugars at home. Says she has had DKA before but has never felt this bad. Reports severe heartburn 2/2 vomiting. Currently denies abdominal pain, nausea, dysuria. Reports regular bowel movements. Denies any home meds aside from occasional insulin. Reports regular marijuana use and vapes daily. Presented to [facility] 04/26/25 for cc of vomiting. Was discharged home same day w/ zofran and instructions to take home insulin and f/u w/ PCP. Sx worsened leading her to go back to [facility] 04/27. Vitals: 140/88, HR 120, RR 18, temp 36.9 Labs: WBC 28, hgb 16, hct 46.4, plt 380, ph 7.06, CO2 31, O2 32, hco3 8, AGAP 25, glucose 273, A1c 12 UA w/ 80 ketones, 250 leuk cynthia, 9 wbc, 500 glucose ED intervention: zofran 4mg x2, 2L NS bolus, 2 g magnesium, 2.5 mg haldol x2, 12.5 mg benadryl, started on continuous .45% 1/2 NS and insulin drip at .12 units/kg/hr REVIEW OF SYSTEMS + vomiting - dysuria, nausea, abdominal pain, CP, palpitations PHYSICAL EXAMINATION Vitals: 04/28/25 0115 04/28/25 0130 04/28/25 0145 04/28/25 0200 BP: (!) 172/97 (!) 156/90 (!) 157/86 (!) 157/86 Pulse: 134 125 Resp: 14 21 23 19 Temp: TempSrc: SpO2: 100% 100% 98% 94% Weight: Height: General: ill-appearing HEENT: dry mucous membranes, EOMI, pupils equal and reactive Neck: supple, trachea midline, no JVD, no LAD Cardio: RRR, S1 and S2 normal, no m/r/g Respiratory: CTA b/l Abdomen: soft, non-distended, non-tender, and normoactive BS x 4 Extremities: no peripheral or pitting edema, clubbing, or cyanosis DP pulses intact Skin: no rashes, ecchymosis, or textural changes present Neuro: no focal neuro deficits Labs (pertinent only)/Imaging: Labs (last 24 hours): Chemistry CBC LFTs Coags, other 138 106 8 273 (H) 28.12 (H) 16.0 (H) 380 (H) AST: 18 ALT: 23 PT: - INR: - 4.4 7 (L) 0.45 (L) 46.4 (H) AP: 72 T Dhiraj: 0.7 PTT: - eGFR: 140.6 Ca: 9.4 % Andrea: 88.8 Prot: 9.8 (H) Alb: 5.5 (H) Lact: 2.06 Procal: - M.7 PO4: 4.3 ANC: 24.96 (H) pBNP: - Trop I: - Assessment/Plan: Nuria Solitario is a 19 year old female admitted with DKA secondary to poorly controlled T1DM Neuro/HEENT A&ox4. Not an active concern. Resp Not an active concern. Saturating well on RA. Cardiovascular Sinus tachycardia HR ranging 113-134. Likely 2/2 dehydration and discomfort. Denies any CP. Should improve w/ fluids. - ctm - EKG prn Endo DKA HAGMA 2/2 above T1DM, poorly controlled (A1c 12) Pt w/ poorly controlled T1DM presenting w/ DKA. DKA protocol started at [facility]. AGAP 25, initial glucose 273, ph 7.06, TCO2 7. Potassium 4.4, corrected sodium 141. Blood glucose @2312 176, started on D5 infusion. Reports being noncompliant w/ insulin. Pt would benefit from education and endocrinology consult given repeat admission for DKA. - consider endocrinology consult in AM - BMP q3hr - glucose q1hr - advance diet as tolerated - c/w DKA protocol criteria for transition to subq insulin: Blood glucose <=200, TCO2 >15x2, AGAP <12 and pt ready to eat FEN/GI Vomiting Heartburn Poor PO intake - advance diet as tolerated - zofran/compazine prn - EKG prn Heme/Onc Labs suggestive of hemoconcentration 2/2 severe dehydration - ctm ID Leukocytosis Asymptomatic bacteriuria WBC elevated at 28 and 9 WBC in urine. Pt afebrile and denying cough, dysuria. - ctm Renal//Lytes HAGMA Ketonuria and glucosuria 2/2 DKA Proteinuria 2/2 dehydration Volume Depletion Asymptomatic bacteriuria UA findings fit DKA picture. Leuk cynthia 250 and 9 WBC in setting of increased WBC. However, pt denies dysuria, fever, suprapubic pain. Prednisone listed in chart however pt denies recent use. Denies hx of UTI. Abx not indicated. Can consider urine cx/ abx should pt become symptomatic - correct electrolytes as indicated - BMP q3hr - maintenance fluids Psych/Other Not an active concern. DVT prophylaxis: not necessary, alon <4 Stress Ulcer Prophylaxis: famotidine iv q12hr Bowel Regimen: none Access/Lines: - monitor and exchange lines PRN Dispo: MICU Prognosis: Guarded Vania Shoemaker DO Internal Medicine - PGY2 Cosigned by Ben Sood MD at 04/28/2025 12:43 PM CDT Associated attestation - Ben Sood MD - 04/28/2025 12:43 PM CDT Attending History Supplement: I personally examined the patient on 04/28/[address] Shoemaker's resident note as written. I actively participated in the decision-making process. Please see the resident's note for additional details. Nuria Solitario is a 19 year old female with DM admitted with DKA and receiving iv fluids and iv insulin. To consult endocrinology to assist with obtaining medication in outpatient setting. [facility] Notes Type 1 diabetes mellitus with ketoacidosis without coma (multi HCC)Marijuana useCyclical vomitingHypomagnesemiaThis document was completed using voice recognition software. This can produce[1] Date/Time Note Provider Source 2025-05-30 16:32:14 Dionicio Hooks PA-C - 05/30/2025 4:13 PM CDT HPI: Nuria Solitario is a 19 year old female is here for Follow-up (Follow up for Dm) . Diabetes mellitus: Appt scheduled with endocrinology for next month. Patient is currently taking 5 units Lispro with meals, Lantus 25 units daily Home blood glucose measurements are less than 140 fasting, highest BS is 250 in the morning. typically better with diet modification. Last A1C was Results for orders placed or performed in visit on 05/10/25 HEMOGLOBIN (HB) A1C Collection Time: 05/10/25 10:39 AM Result Value Ref Range HEMOGLOBIN A1C 11.7 (High) 4.8 - 5.6 % Recent ER visit for vomiting on 05/22/2025. Treated in the ER with nausea medication. Labs unremarkable other than magnesium of 1.7. Since then she has started [id number] magnesium supplementation. Has felt better since then. Working on decreasing her marijuana use with a goal of quitting completely due to cyclical vomiting and chronic nausea. Still waking up in the morning with nausea and occasional vomiting but has improved. Current medications: Current Medications[1] Allergies: Patient has no known allergies. I have reviewed the past Medical, Family, and Social history. Review of Systems: All systems are negative, except those pertinent items mentioned in the HPI. Review of Systems Constitutional: Negative for chills and fever. Gastrointestinal: Positive for nausea and vomiting. Negative for constipation and diarrhea. Endocrine: Negative for polydipsia, polyphagia and polyuria. Physical Exam: BP 104/64 (Side: Left Arm, Position: SITTING, Cuff Size: Small Adult) | Pulse 103 | Temp 98.2 ?F (36.8 ?C) (Tympanic) | Resp 18 | Ht 5' 5" (1.651 m) | Wt 161 lb (73 kg) | LMP 05/01/2025 (Exact Date) | SpO2 99% | BMI 26.79 kg/m? Physical Exam Constitutional: General: She is not in acute distress. Appearance: Normal appearance. HENT: Head: Normocephalic and atraumatic. Right Ear: External ear normal. Left Ear: External ear normal. Nose: Nose normal. Eyes: Conjunctiva/sclera: Conjunctivae normal. Cardiovascular: Rate and Rhythm: Normal rate. Pulses: Normal pulses. Heart sounds: No murmur heard. Pulmonary: Effort: Pulmonary effort is normal. No respiratory distress. Breath sounds: No stridor. No wheezing, rhonchi or rales. Neurological: General: No focal deficit present. Mental Status: She is alert. Psychiatric: Mood and Affect: Mood normal. Behavior: Behavior normal. Thought Content: Thought content normal. Judgment: Judgment normal. Assessment and Plan: Nuria was seen today for follow-up. Diagnoses and all orders for this visit: - Insulin Glargine (Lantus SoloStar) 100 UNIT/ML subcutaneous Solution Pen-injector; Inject 25 units daily in the morning. - MAGNESIUM; Future Improved. Continue with plan to follow-up with endocrinology regarding elevated blood sugars in the mornings. Continue Lantus 25 units daily, lispro 5 units with meals. Recommend to decrease carbohydrate intake to less than 45 g per meal. Recommend to check blood sugars at least twice daily. Recommend to maintain blood sugars less than 140 fasting and less than 200 after meals. If blood sugar remains above 200 further adjustment in medication may be required. Discussed marijuana cessation for cyclical vomiting and hyperemesis syndrome. She is continuing to decrease use with a goal of quitting completely. If no improvement, will refer to GI for further evaluation. Discussed marijuana cessation for cyclical vomiting and hyperemesis syndrome. She is continuing to decrease use with a goal of quitting completely. If no improvement, will refer to GI for further evaluation. - BASIC METABOLIC PANEL (8); Future - MAGNESIUM; Future Recheck lab. Continue OTC magnesium supplement. Return in about 6 months (around 11/30/2025) for follow up. floor molder errors that can at times significantly distort words and phrases. Please interpret any aspect of the note that is nonsensical in light of this fact. SP: Dr. Fly Pardo, DO [facility] Current Outpatient Medications Medication Sig Dispense Refill Continuous Glucose Sensor (Dexcom G7 Sensor) does not apply Misc Change sensor every 10 days. 6 each 1 Insulin Glargine (Lantus SoloStar) 100 UNIT/ML subcutaneous Solution Pen-injector Inject 25 units daily in the morning. 15 mL 3 Insulin Lispro (HUMALOG) 100 unit/mL SQ injection Inject 0.02 mL (2 units total) into the skin 3 times daily (before meals). 10 mL 0 No current facility-administered medications for this visit. [facility] Pending Results Name Type Priority Associated Diagnoses Date /Time BASIC METABOLIC PANEL (8) Lab Routine Hypomagnesemia 05/30/2025 4:31 PM CDT MAGNESIUM Lab Routine Type 1 diabetes mellitus with ketoacidosis without coma (multi HCC) Hypomagnesemia 05/30/2025 4:31 PM CDT Scheduled Orders Name Type Priority Associated Diagnoses Orde r Schedule BASIC METABOLIC PANEL (8) Lab Routine Hypomagnesemia Expected: 2024, Expires: 06/30/2025 MAGNESIUM Lab Routine Type 1 diabetes mellitus with ketoacidosis without coma (multi HCC) Hypomagnesemia Expected: 05/30/2025 (Approximate), Expires: 08/28/2025 Health Maintenance Due Date Last Done Comments Diabetes: Retinopathy Screening 2021 PAP SMEAR -10/13/2024 Influenza Vaccines (#1) 2025 07/16/2021 Diabetes: Hemoglobin A1C 08/10/2025 025, 04/27/2025, 07/14/2024 COVID-19 Vaccine (1 - 2023-2 5 season) 2026 Postponed from 06/18 (Patient Refused) Creatinine Level (Kidney Function Test) 05/10/2026 05/10/2025, 05/03/2025 Diabetes: Urine Protein Screening 05/10/2026 05/10/2025 HPV Vaccines (1 - 3-dose series) 05/10/2026 Postponed from 10/13 (Patient Refused) Lipid Panel 05/10/2026 05/10/2025 Pneumococcal Vaccine: Pediatrics (0 to 5 Years) and At-Risk Patients (6 to 64 Years) (1 of 2 - PCV) 05/10/2026 Postponed from (Patient Refused) Tdap Vaccines 05/10/2026 Postponed from 2022 (Patient Refused) Physical Exam 05/10/2027 05/10/2025, 05/10/2025 RSV Vaccines (1 - 1-dose 75+ series) 2078 Meningococcal ACWY Vaccines Completed 07/02/2021 [facility]2025-08-13 16:32:14 Diagnosis Type 1 diabetes mellitus wit h ketoacidosis without coma (multi HCC) - Primary Marijuana use Cannabis abuse, unspecified Cyclical vomiting Persistent vomiting Hypomagnesemia Disorders of magnesium metabolism Hypomagnesemia Disorders of magnesium metabolism Type 1 diabetes mellitus wit h ketoacidosis without coma (multi HCC) [facility]2025-08-13 16:32:14 [place] [id number] 16:32:14* [place] [id number] 16:07:43 Chief Complaint Patient presents with Follow-up Follow up for Kaz Mcbride LVN [facility]2025-08-05 13:52:23 Patient leaving AMA/without final disposition, discussed risks of leaving against medical advice/final dispositon, Dr. Ramirez aware and notified of patient's decision. Patient encouraged to seek medical attention for any new/prolonged/worsening of symptoms and stressed importance of follow up with a medical provider as soon as possible. AMA form explained, patient signed form. IV d'cd, dressing to site.Patient leaving ambulatory with steady gait, appears in no distress. [facility] Ramsay [id number] 12:22:51 Pt states she has been vomiting with high blood sugar every morning x3days. BGL 259 9 or 10 am today at home. Hx IDDM [facility] Hayden [id number] 12:19:00 [facility] Emergency Department Note Patient Name: Nuria Solitario Date of : 2005 19 year old female Treatment Room: [place] [address] Primary Care Physician: PATIENT DOES NOT HAVE A PCP Patient Escorted by: Family [5] Mode of Arrival: Personal means [1] EMS Treatment Prior to ED Arrival: ARCHITECTURE INTERN treatment: None Travel and Exposure Screening: Symptoms Does patient have any of these symptoms?: (not recorded) Exposure Screening Has patient had contact with someone with a communicable disease in the last month?: (not recorded) Diseases exposed to:: (not recorded) Is Patient ?: (not recorded) Exposure Date: (not recorded) Chief Complaint: Chief Complaint Patient presents with Vomiting High Blood Sugar Abdominal Pain History of Present Illness: History of Present Illness The patient presents from home for evaluation for nausea and vomiting for the past 3 days. No diarrhea. No sick contacts. She does have a history of diabetes and is on insulin consisting of Lantus and Humalog. She admits to compliance with her medication. She was admitted for DKA last month. She also admits to smoking marijuana and last used it this morning around 6 or 7 AM. No bad food exposure. No recent trips or travel or antibiotics. She reports her last menstrual period was about 3 weeks ago and she denies being . Here for evaluation. Past Medical History/Immunizations: History reviewed. No pertinent past medical history. Tetanus received in last 5 years: No Allergies: No Known Allergies Past Social History: Substance & Sexual Activity No substance use or sexual activity history on file. Past Surgical History: History reviewed. No pertinent surgical history. Review of Systems: Review of Systems Constitutional: Negative for chills and fever. Respiratory: Negative for cough and shortness of breath. Cardiovascular: Negative for chest pain. Gastrointestinal: Positive for nausea and vomiting. Negative for abdominal pain. Genitourinary: Negative for dysuria. Musculoskeletal: Negative for arthralgias, neck pain and neck stiffness. Skin: Negative for wound. Neurological: Negative for dizziness. Psychiatric/Behavioral: Negative for agitation. Endocrine: Negative for goiter. Physical Exam: Physical Exam ED Triage Vitals [05/22/25 1225] Weight 72.6 kg (160 lb) Actual or estimated Height 1.651 m (5' 5") BP 136/88 Pulse 111 Resp 16 Temp 37.3 ?C (99.1 ?F) Temp source Oral SpO2 98 % Measured on Room air Physical Exam Vitals and nursing note reviewed. Constitutional: Appearance: Normal appearance. She is obese. HENT: Head: Normocephalic and atraumatic. Mouth/Throat: Mouth: Mucous membranes are dry. Cardiovascular: Rate and Rhythm: Regular rhythm. Tachycardia present. Pulmonary: Effort: Pulmonary effort is normal. No respiratory distress. Breath sounds: No wheezing. Abdominal: General: There is no distension. Palpations: Abdomen is soft. There is no mass. Tenderness: There is no abdominal tenderness. There is no guarding or rebound. Hernia: No hernia is present. Musculoskeletal: General: Normal range of motion. Cervical back: Normal range of motion and neck supple. Skin: General: Skin is warm and dry. Neurological: Mental Status: She is alert and oriented to person, place, and time. Radiology: No orders to display Lab Results: Lab Results POCT GLUCOSE (AUTOMATED) - Abnormal Result Value Ref Range POCT GLU 232 (*) 70 - 110 mg/dL CBC WITH DIFF - Abnormal WBC 19.24 (*) 4.30 - 11.10 10*3/?L RBC 4.45 3.93 - 5.25 10*6/?L HGB 13.5 11.6 - 15.0 g/dL HCT 40.2 35.7 - 45.2 % MCV 90.3 80.6 - 95.5 fL MCH 30.3 25.9 - 32.8 pg MCHC 33.6 31.6 - 35.1 g/dL RDW-SD 41.1 39.0 - 49.9 fL RDW-CV 12.6 12.0 - 15.5 % PLT 420 (*) 166 - 358 10*3/?L MPV 9.6 9.5 - 12.9 fL IPF % 1.7 1.3 - 7.7 % NRBC/100 WBC 0.0 0.0 - 10.0 /100 WBCs NRBC x103<0.01 10*3/?L GRAN MAT (NEUT) % IMM GRAN % LYMPH % MONO % EOS % BASO % GRAN MAT x103(ANC) IMM GRAN x103 LYMPH x103 MONO x103 EOS x103 BASO x103 COMP. METABOLIC PANEL (64299) - Abnormal NA 138 135 - 145 mmol/L K 4.1 3.5 - 5.0 mmol/L CL 106 98 - 108 mmol/L CO2 TOTAL 14 (*) 23 - 31 mmol/L AGAP 18 (*) 2 - 16 BUN 11 7 - 23 mg/dL GLUCOSE 249 (*) 70 - 110 mg/dL CREATININE 0.33 (*) 0.50 - 1.04 mg/dL TOTAL BILI 0.6 0.1 - 1.1 mg/dL CALCIUM 9.3 8.6 - 10.6 mg/dL T PROTEIN 8.3 (*) 6.3 - 8.2 g/dL ALBUMIN 5.0 3.5 - 5.0 g/dL ALK PHOS 40 34 - 122 U/L ALTv 21 5 - 35 U/L AST(SGOT) 19 13 - 40 U/L eGFR 151.5 mL/min/1.73m2 AC PANEL 21 + LACTIC ACID - Abnormal PH 7.38 7.32 - 7.42 PCO2 MCKAYLA 29 (*) 41 - 51 mmHg PO2 MCKAYLA 39 25 - 40 mmHg HCO3 MCKAYLA 17 (*) 24 - 28 mEq/L AC VBE -6.8 -3.0 - 3.0 mEq/L THB MCKAYLA 14.2 12.0 - 16.0 g/dL %O2HB MCKAYLA 74.7 (*) 52.0 - 63.0 % %COHB MCKAYLA 1.0 0.0 - 1.5 % %METHB MCKAYLA 0.3 (*) 0.4 - 1.5 % VOL%O2 MCKAYLA 14.9 (*) 6.0 - 12.0 % NA 141 135 - 145 mmol/L K+ 4.1 3.5 - 5.0 mmol/L AC CA IONZ 4.80 4.50 - 5.30 mg/dL GLUCOSE 262 (*) 70 - 110 mg/dL LACTIC ACID 2.08 0.50 - 2.20 mmol/L MAGNESIUM - Abnormal MAGNESIUM 1.4 (*) 1.7 - 2.4 mg/dL POCT TEST - Normal POCT PREG Negative On board controls acceptable with C Line Yes FENTANYL (IMMUNOASSAY) - Normal FENTANYL Negative Negative URINALYSIS URINE DRUG (IMMUNOASSAY) - COMPREHENSIVE DRUG SCREEN W/O REFLEX EKG: If EKG completed, see Procedure Note. Orders and Treatments: Orders Placed This Encounter Procedures POCT GLUCOSE (AUTOMATED) CBC WITH DIFF COMP. METABOLIC PANEL (08708) AC PANEL 21 + LACTIC ACID Magnesium POCT TEST URINALYSIS URINE DRUG (IMMUNOASSAY) - COMPREHENSIVE DRUG SCREEN W/O REFLEX Fentanyl (Immunoassay) Orders Placed This Encounter Medications NaCl 0.9% (NS) bolus infusion 1,000 mL haloperidol lactate (HALDOL) injection 2.5 mg metoclopramide HCl (REGLAN) injection 10 mg magnesium sulfate in water 2 gram/50 mL (4 %) infusion 2 g First Provider Eval: ED Events Date/Time Event User Comments 05/22/25 1229 Medical Screening Begins DOROTHEA RAMIREZ DO -- 05/22/25 1229 First Provider Evaluation DOROTHEA RAMIREZ DO -- ED COURSE Diagnosis/Impression as of 05/22/25 1349 Nausea and vomiting, unspecified vomiting type Hypomagnesemia Cannabis hyperemesis syndrome concurrent with and due to cannabis abuse Results Procedures: Procedures MDM: Assessment & Plan Medical Decision Making The patient presents from home for evaluation for nausea and vomiting for the past 3 days. No diarrhea. No sick contacts. She does have a history of diabetes and is on insulin consisting of Lantus and Humalog. She admits to compliance with her medication. She was admitted for DKA last month. She also admits to smoking marijuana and last used it this morning around 6 or 7 AM. No bad food exposure. No recent trips or travel or antibiotics. She reports her last menstrual period was about 3 weeks ago and she denies being . The patient is tachycardic upon arrival to the ER at 111. She has dry mucous membranes. Her heart is regular rhythm. Her lungs are clear bilaterally. Her abdomen is soft and nontender. Will check laboratory studies including a VBG to eval for possible although suspect cyclic vomiting from marijuana use as a cause of her symptoms. Will give the patient IV fluid as well as antiemetics. Final disposition pending. 1347 -the patient is doing well here in the ER. Her nausea and vomiting has resolved. She was given a p.o. challenge and able to tolerate by mouth without difficulty. Her laboratory studies showed no evidence of DKA. She does have a low magnesium level and there was plans to replace that here in the ER however the patient is refusing and reporting she wants to go home. Therefore she remained stable here in the ER and is okay for discharge home with PCP follow-up. She was advised to stop using marijuana. Problems Addressed: Cannabis hyperemesis syndrome concurrent with and due to cannabis abuse: acute illness or injury Hypomagnesemia: acute illness or injury Nausea and vomiting, unspecified vomiting type: acute illness or injury Amount and/or Complexity of Data Reviewed Labs: ordered. Decision-making details documented in ED Course. Risk Prescription drug management. Flowsheet Documentation: Scoring Tools: No data recorded Disposition/Condition: ED Disposition ED Disposition Discharge Condition Stable Comment -- Discharge Medications: Patient's Medications START taking these medications No medications on file CONTINUE taking these medications which have NOT CHANGED INSULIN GLARGINE 100 UNIT/ML INJECTION inject 10 Units under the skin in the morning. Before breakfast. If not eating or if blood sugar is between 80 and 120 give HALF the dose. If blood sugar less than 80: Eat a meal and recheck. Give half dose of insulin once blood sugar over 120. INSULIN GLARGINE 100 UNIT/ML INJECTION inject 10 Units under the skin in the morning. Before breakfast. If not eating or if blood sugar is between 80 and 120 give HALF the dose. If blood sugar less than 80: Eat a meal and recheck. Give half dose of insulin once blood sugar over 120. INSULIN LISPRO, HUMAN, 100 UNIT/ML INJECTION inject 2 Units under the skin in the morning and 2 Units at noon and 2 Units in the evening. inject before meals. ? If NOT eating or if blood sugar less than 80: SKIP insulin dose, eat and recheck in 15 minutes until sugar is above 100 twice in a row. ? If eating less than half your meal or if blood sugar is between 80 and 120: Take only half of your insulin dose KCL 20 MEQ TABLET Take 2 tablets by mouth in the morning. START taking Modified Medications as Prescribed No medications on file STOP taking these medications No medications on file Follow-up: Electronically signed by: Dorothea Ramirez DO 05/22/25 1349 [id number] 11:21:20* Consultation (Routine) - Authorized Specialty Diagnoses / Procedures Referred By Danielle wong Referred To Contact ic designer gate arrays Diagnoses Screening for cervical cancer Procedures OFFICE/OUTPATIENT [facility] 60 MINUTES Dionicio Hooks PA-C [address] [place] [address] Phone: tel: fax: Referral ID Status Reason Start Date Expiration Date Visits Requested Visits Authorized [id number] Authorized Specialty Services Required 05/10/2025 08/08/2025 1 [id number] 11:21:20* [facility] [id number] 11:21:20* Dionicio Hooks PA-C - 05/10/2025 10:17 AM CDT DEMIAN Solitario is a 19 year old female is here for her annual Physical Examination. Diabetes mellitus: Patient is currently taking Solostar 20 units, Humalog 5 units before meals with SSI Home blood glucose measurements are 200s-300s. Highest at night. No episodes of hypoglycemia. Last A1C was 10 during recent hospitalization for DKA. Not taking her insulin as prescribed at the time. Hyperkalemia: Currently taking 1 tablet Potassium chloride ER 20 mg daily. Care Gaps/Prevention: Sexually-transmitted infection screening: declines PAP: wants to go to OBGYN Lung Cancer: workin jazmine decreasing marijuana use Vaccines: declines Allergies: Patient has no known allergies. Medications: Current Medications[1] ASCVD Risk: The ASCVD Risk score (Nell EVANS, et al., 2019) failed to calculate for the following reasons: The 2019 ASCVD risk score is only valid for ages 40 to 79 Pertinent Hx Past Medical History[2] No past surgical history on file. Family History[3] Social History[4] Social History Substance and Sexual Activity Sexual Activity Not on file Review of Systems Review of Systems Constitutional: Negative for activity change, fatigue, fever and unexpected weight change. HENT: Negative for congestion, hearing loss, postnasal drip and rhinorrhea. Eyes: Negative for visual disturbance. Respiratory: Negative for cough, chest tightness and shortness of breath. Cardiovascular: Negative for chest pain, palpitations and leg swelling. Gastrointestinal: Negative for abdominal pain, constipation, diarrhea and nausea. Genitourinary: Negative for difficulty urinating. Musculoskeletal: Negative for gait problem. Skin: Negative for rash. Neurological: Negative for dizziness and headaches. Physical Exam BP 102/60 (Side: Left Arm, Position: SITTING, Cuff Size: Medium Adult) | Pulse 100 | Temp 98.2 ?F (36.8 ?C) (Tympanic) | Resp 18 | Ht 5' 5" (1.651 m) | Wt 161 lb (73 kg) | LMP 05/01/2025 (Exact Date) | SpO2 99% | BMI 26.79 kg/m? Physical ExamConstitutional: General: She is not in acute distress. Appearance: Normal appearance. HENT: Head: Normocephalic and atraumatic. Right Ear: External ear normal. Left Ear: External ear normal. Nose: Nose normal. Eyes: Conjunctiva/sclera: Conjunctivae normal. Cardiovascular: Rate and Rhythm: Normal rate. Pulses: Normal pulses. Heart sounds: No murmur heard. Pulmonary: Effort: Pulmonary effort is normal. No respiratory distress. Breath sounds: No stridor. No wheezing, rhonchi or rales. Neurological: General: No focal deficit present. Mental Status: She is alert. Psychiatric: Mood and Affect: Mood normal. Behavior: Behavior normal. Thought Content: Thought content normal. Judgment: Judgment normal. Assessment & Plan Nuria was seen today for follow-up. Diagnoses and all orders for this visit: Annual physical exam Type 1 diabetes mellitus with ketoacidosis without coma (multi HCC)- MICROALB/CREAT RATIO, RANDM UR; Future - HEMOGLOBIN (HB) A1C; Future Improving. Still not to goal, per blood sugar log/Dexcom measurements. Recommend to increase Solostar by 1 to 2 units every 2 to 3 days until blood sugars are controlled. Continue Humalog 5 units before meals and sliding scale insulin. Appointment scheduled with endocrinology for further evaluation recommendation. Recommend to decrease carbohydrate intake to less than 45 g per meal. Recommend to check blood sugars at least twice daily. Recommend to maintain blood sugars less than 140 fasting and less than 200 after meals. If blood sugar remains above 200 further adjustment in medication may be required. Marijuana useContinue decreasing marijuana use with goal of eventually quitting completely. HyperkalemiaWill recheck lab today, if normal will stop potassium supplementation. Encounter for screening for lipid disorder- LIPID PANEL; Future Screening for cervical cancer- REFERRAL TO POWER PROJECT MANAGER- .[facility] [place] [facility] [place] in about 1 year (around 05/10/2026) for annual physical. This document was completed using voice recognition software. This can produce floor molder errors that can at times significantly distort words and phrases. Please interpret any aspect of the note that is nonsensical in light of this fact. SADE Wiley-CSP: Dr. Fly Pardo, [facility] [1]Current Outpatient Medications Medication Sig Dispense Refill Continuous Glucose Sensor (Dexcom G7 Sensor) does not apply Misc Change sensor every 10 days. 6 each 1 Insulin Lispro (HUMALOG) 100 unit/mL SQ injection Inject 0.02 mL (2 units total) into the skin 3 times daily (before meals). 10 mL 0 Lantus SoloStar 100 UNIT/ML subcutaneous Solution Pen-injector INJECT 10 UNITS UNDER THE SKIN EVERY MORNING BEFORE BREAKFAST Potassium Chloride Jessica ER 20 MEQ oral Tab CR tablet Take 2 tablets (40 mEq total) by mouth daily. No current facility-administered medications for this visit.[2] Past Medical History: Diagnosis Date Diabetes (multi HCC) Type 1 [3] Family History Problem Relation Name Age of Onset Diabetes Mellitus Father type 1 Diabetes Mellitus Sister type 1 Diabetes Mellitus Maternal Grandmother Lung Cancer Maternal Grandfather Stroke Paternal Grandfather Skin Cancer Paternal Grandfather Ovarian Cancer Aunt 50 [4] Social History Tobacco Use Smoking status: Every Day Types: E-cigarettes Start date: 2021 [facility]2025-07-24 11:21:20Upcoming Encounters Pending Results Name Type Priority Associated Diagnoses Date /Time MICROALB/CREAT RATIO, RANDM UR Lab Routine Type 1 diabetes kevin itus with ketoacidosis without coma (multi HCC) 05/10/2025 10:46 AM CDT HEMOGLOBIN (HB) A1C Lab Routine Type 1 d iabetes mellitus with ketoacidosis without coma (multi HCC) 05/10/2025 10:39 AM CDT LIPID PANEL Lab Routine Encounter for s creening for lipid disorder 05/10/2025 10:39 AM CDT Scheduled Orders Name Type Priority Associated Diagnoses Orde r Schedule MICROALB/CREAT RATIO, RANDM UR Lab Routine Type 1 diabetes kevin itus with ketoacidosis without coma (multi HCC) Expected: 05/10/2025 (Approximate), Expires: 08/08/2025 HEMOGLOBIN (HB) A1C Lab Routine Type 1 d iabetes mellitus with ketoacidosis without coma (multi HCC) Expected: 05/10/2025, Expires: 08/08/2025 LIPID PANEL Lab Routine Encounter for s creening for lipid disorder Expected: 05/10/2025 (Approximate), Expires: 07/11/2025 Scheduled Referrals Name Type Priority Associated Diagnoses Orde r Schedule REFERRAL TO POWER PROJECT MANAGER- [facility] Referral Routine Screening for cervic al cancer Ordered: 05/10/2025 Health Maintenance Due Date Last Done Comments Diabetes: Retinopathy Screening 2021 Diabetes: Urine Protein Screening 2021 Lipid Panel 2021 PAP SMEAR -10/13/2024 Influenza Vaccines (#1) 2025 07/16/2021 Diabetes: Hemoglobin A1C 07/28/2025 025, 07/14/2024 Creatinine Level (Kidney Function Test) 05/03/2026 05/03/2025 COVID-19 Vaccine (1 - 2023-2 5 season) 2026 Postponed from 06/18 (Patient Refused) HPV Vaccines (1 - 3-dose series) 05/10/2026 Postponed from 10/13 (Patient Refused) Pneumococcal Vaccine: Pediatrics (0 to 5 Years) and At-Risk Patients (6 to 64 Years) (1 of 2 - PCV) 05/10/2026 Postponed from (Patient Refused) Tdap Vaccines 05/10/2026 Postponed from 2022 (Patient Refused) Physical Exam 05/10/2027 05/10/2025, 05/10/2025 RSV Vaccines (1 - 1-dose 75+ series) 2078 Meningococcal ACWY Vaccines Completed 07/02/2021 [facility]2025-07-24 11:21:20 Diagnosis Annual physical exam - Primary Routine general medical examination at a health care facility Type 1 diabetes mellitus wit h ketoacidosis without coma (multi HCC) Marijuana use Cannabis abuse, unspecified Hyperkalemia Hyperpotassemia Encounter for screening for lipid disorder Screening for cervical cancer Screening for malignant neoplasm of the cervix [facility]2025-07-24 11:21:20 [facility]2025-07-24 10:15:51 Chief Complaint Patient presents with Follow-up Follow for DM and fasting labs Yara Mcbride LVN [facility]2025-07-18 10:58:22 Summary: Diabetes Education Follow Up How are you feeling? Ms Solitario stated to be doing well at home at this time Have you seen your PCP/Skin Therapist yet? Saw PCP yesterday 05/03 PCP modified her insulin Living situation: Home, lives with mother Meals/Appetite: Normal for Ms Solitario DM Type DMT2 What device do you use to check your blood sugars? Dexcom G7 in place Manual glucometer also available How often do you check your blood sugars? Before meals and insulin administration What diabetes medications are you taking? Lantus 12 u Daily Humalog 2 u TID meals SSI for BS > 170 mg/dL Any issues with anti-hyperglycemic medications prescribed at hospital discharge? NONE Blood sugar goal at discharge: 120 - 150 mg/dL Any symptoms of hypoglycemia since hospital discharge including headache, sweatiness, shakiness, clamminess, fast or pounding heart rate, anxious, confusion, light headiness? Reported 76 mg/dl yesterday evening per Dexcom G7. Reported had a sandwich in the car afternoon and when she got home later she self administer additional insulin. Advised to administer insulin amount based on the blood sugar right before meal not after meal. Verbalized understanding. Any symptoms of hyperglycemia since hospital discharge including frequent urination, thirst, frequent hunger, blurred vision, restlessness, fatigue? Reported BS = 250 - 300 mg/dl in the mornings. Ms Solitario stated her PCP already advised insulin adjustment every 2 days until resolved. Most recent blood sugar values including past 2-3 days: Lowest BS reported = 76 mg/dl after self administration of insulin after meal.Advised to administer insulin amount based on the blood sugar right before meal not after meal. Verbalized understanding. Reported BS = 250 - 300 mg/dl in the mornings. Ms Solitario stated her PCP already advised insulin adjustment every 2 days until resolved. If you have a reading around 300 mg/dL with nausea/vomiting or a reading over 450 mg/dL you need immediate attention. Call your doctor or go to the emergency room/urgent care. Denied symptoms at this time Jatinder Taylor MD [employer]- Endocrine Progress Notes Attested Date of Service: 05/01/2025 10:15 AM Creation Time: 05/01/2025 10:15 AM Insulin Instructions - After leaving the hospital (A) GENERAL INSTRUCTIONS Your insulin doses need to be adjusted according to what you eat and depending on you blood sugar readings Your glucose (sugar) goals are:120-150 mg/dL range for now Check blood sugar before each meal OR if you have symptoms of low sugar (weakness, fatigue, sweats, dizziness) (B) YOU ARE GOING HOME ON: 1) Lantus (glargine) 10 units before breakfast If not eating or if blood sugar is between 80 and 120 give HALF the dose. If blood sugar less than 80: Eat a meal and recheck. Give half dose of insulin once blood sugar over 120. 2) Humalog (lispro) insulin 2 units before breakfast, lunch and dinner If NOT eating or if blood sugar less than 80: SKIP insulin dose, eat and recheck in 15 minutes until sugar is above 100 twice in a row. If eating less than half your meal or if blood sugar is between 80 and 120: Take only half of your insulin dose 3) Extra Humalog insulin If blood sugar before meal is higher than 170: Blood sugar 170 to 220, give 1 unit. Blood sugar 221 to 270, give 2 units. Blood sugar 271 to 300, give 3 units. Blood sugar greater than 300, give 4 units, recheck in 3 hours and cover again with sliding scale. 4) Oral medications: None (C) ADJUSTING INSULIN DOSES EVERY 2-3 DAYS: For blood sugar levels in LOWER RANGE (All readings, 2 days in a row, consistently UNDER 120 mg/dL): Decrease Lantus by 4 units. Decrease all doses of Humalog insulin with meals by 2 units. For blood sugar levels in HIGHER range (All readings, 2 days in a row, consistently GREATER THAN 160 but NONE under 120): Increase Lantus by 2 units each. Increase all doses of Humalog insulin with meals by 1 units each. (D) OTHER INSTRUCTIONS: Follow up with PCP in 1-2 weeks Endocrinology within 4-5 weeks If you are vomiting and cannot eat Do not give scheduled meal time Humalog 3 unit insulin. Take only half of Lantus 20 unit insulin and call your doctor. You may use sliding scale to correct for high sugars even if not eating. Call your doctor if you have more than 2 readings under 80 or more than 3 over 300 mg/dL to receive further instructions. If you have a reading over 450, recheck and if still high, you need immediate attention. Call your doctor or go to the emergency room/urgent care. Always have glucose tablets on you and a pack of peanut butter crackers, in case you have a low sugar (weakness, fatigue, sweats, dizziness). Get a glucagon emergency kit to have for low sugar emergencies just in case you cannot eat/drink to get sugar up. CALL the access center at ([phone]) if you have any urgent questions regarding your insulin instructions. If you are vomiting and your sugar is in 300s, go to the ER. Additional Notes: LANTUS is your long-acting insulin (covers your sugars for 24 hours). Lantus dose is working right for you if your blood sugar readings when you wake up (before breakfast) are consistently in target range. HUMALOG is your short-acting insulin (lasts about 4-5 hours) and is used to cover meals. Take your scheduled dose with each meal as instructed above. DO NOT take it if you do are not eating. [facility] - [id number] 11:14:16 Chief Complaint Patient presents with Follow-up Hospitalization Hospital follow up [facility] Yara Mcbride LVN [facility]2025-07-15 16:22:43 Summary: Diabetes Education General Information How will patient follow up? [x] PCP [] Unknown [x] Endocrinology [] [facility] 1 - 2 weeks Endocrinology within 4 - 5 weeks Discharge Planning Needs Jatinder Taylor MD [employer]LLOW M[employer]- Endocrine Progress Notes Attested Date of Service: 05/01/2025 10:15 AM Creation Time: 05/01/2025 10:15 AM Attestation signed by Erich Higgins MD at 05/01/2025 3:58 PM Agree with discharge recs Erich Higgins MD Cnc Machine Programmer Endocrinology Insulin Instructions - After leaving the hospital (A) GENERAL INSTRUCTIONS Your insulin doses need to be adjusted according to what you eat and depending on you blood sugar readings Your glucose (sugar) goals are:120-150 mg/dL range for now Check blood sugar before each meal OR if you have symptoms of low sugar (weakness, fatigue, sweats, dizziness) (B) YOU ARE GOING HOME ON: 1) Lantus (glargine) 10 units before breakfast If not eating or if blood sugar is between 80 and 120 give HALF the dose. If blood sugar less than 80: Eat a meal and recheck. Give half dose of insulin once blood sugar over 120. 2) Humalog (lispro) insulin 2 units before breakfast, lunch and dinner If NOT eating or if blood sugar less than 80: SKIP insulin dose, eat and recheck in 15 minutes until sugar is above 100 twice in a row. If eating less than half your meal or if blood sugar is between 80 and 120: Take only half of your insulin dose 3) Extra Humalog insulin If blood sugar before meal is higher than 170: Blood sugar 170 to 220, give 1 unit. Blood sugar 221 to 270, give 2 units. Blood sugar 271 to 300, give 3 units. Blood sugar greater than 300, give 4 units, recheck in 3 hours and cover again with sliding scale. 4) Oral medications: None (C) ADJUSTING INSULIN DOSES EVERY 2-3 DAYS: For blood sugar levels in LOWER RANGE (All readings, 2 days in a row, consistently UNDER 120 mg/dL): Decrease Lantus by 4 units. Decrease all doses of Humalog insulin with meals by 2 units. For blood sugar levels in HIGHER range (All readings, 2 days in a row, consistently GREATER THAN 160 but NONE under 120): Increase Lantus by 2 units each. Increase all doses of Humalog insulin with meals by 1 units each. (D) OTHER INSTRUCTIONS: Follow up with PCP in 1-2 weeks Endocrinology within 4-5 weeks If you are vomiting and cannot eat Do not give scheduled meal time Humalog 3 unit insulin. Take only half of Lantus 20 unit insulin and call your doctor. You may use sliding scale to correct for high sugars even if not eating. Call your doctor if you have more than 2 readings under 80 or more than 3 over 300 mg/dL to receive further instructions. If you have a reading over 450, recheck and if still high, you need immediate attention. Call your doctor or go to the emergency room/urgent care. Always have glucose tablets on you and a pack of peanut butter crackers, in case you have a low sugar (weakness, fatigue, sweats, dizziness). Get a glucagon emergency kit to have for low sugar emergencies just in case you cannot eat/drink to get sugar up. CALL the access center at ([phone]) if you have any urgent questions regarding your insulin instructions. If you are vomiting and your sugar is in 300s, go to the ER. Additional Notes: LANTUS is your long-acting insulin (covers your sugars for 24 hours). Lantus dose is working right for you if your blood sugar readings when you wake up (before breakfast) are consistently in target range. HUMALOG is your short-acting insulin (lasts about 4-5 hours) and is used to cover meals. Take your scheduled dose with each meal as instructed above. DO NOT take it if you do are not eating. Discharge instructions were reviewed with Ms Solitario and her mother Tej at bedside. They both verbalized understanding of discharge instructions. Educator Name: Savi Momin RN Date: 05/01/2025 Savi Momin [id number] 15:50:44 Problem: Falls, Risk of Goal: Absence of falls Outcome: Resolved Problem: Discharge Planning Goal: Adequate for discharge Outcome: Resolved Goal: Effective communication Outcome: Resolved Problem: Pain Goal: Control of pain at or below patient's documented comfort goal Outcome: Resolved Goal: Reduction in pain sensation Outcome: Resolved T Pallavi Momin [facility] [id number] 00:53:07 Problem: Falls, Risk of Goal: Absence of falls 05/01/202551 by Angelita De La Cruz RN Outcome: Progressing as expected 05/01/202551 by Angelita De La Cruz, MARCELO Outcome: Progressing as expected Problem: Discharge Planning Goal: Adequate for discharge Outcome: Progressing as expected Problem: Pain Goal: Control of pain at or below patient's documented comfort goal Outcome: Progressing as expected [facility] [id number] 00:52:35 Problem: Falls, Risk of Goal: Absence of falls Outcome: Progressing as expected Problem: Discharge Planning Goal: Adequate for discharge Outcome: Progressing as expected [facility] [id number] 17:41:31 Problem: Falls, Risk of Goal: Absence of falls Outcome: Progressing as expected Problem: Discharge Planning Goal: Adequate for discharge Outcome: Progressing as expected Goal: Effective communication Outcome: Progressing as expected Problem: Pain Goal: Control of pain at or below patient's documented comfort goal Outcome: Progressing as expected Goal: Reduction in pain sensation Outcome: Progressing as expected Gloria Alfredo RNTr[facility]ull [facility] Medical [id number] 12:49:57 Summary: Diabetes Education General Information Age [age] year [id number] [place] [address] Does patient live alone? [] Yes [x] No Does patient have someone who will assist them after discharge? [x] Yes [] No Mother at bedside Where does patient plan to go after discharge? [x] Home [] Facility [] Unknown [] Custody [] Other Does patient work? [x] Yes [] No Does patient work nights? [] Yes [x] No [] N/A How will patient follow up? [] PCP [] Unknown [] Endocrinology [] [facility] To be determined by MD What type of medical coverage does patient have? [facility] Does patient have Rx drug coverage? [x] Yes [] No Does patient have any learning barriers or barriers to managing diabetes? [] Language [x] Financial [] Visual [] Dexterity [] Literacy [x] Transportation: dependent at this time [] Cognitive [] Other [] Hearing [] None Diabetes History A1c Value and Date HGB A1C (%) Date Value 04/27/2025 12.0 (H) Duration of Diagnosis DMT1 diagnosed in 2013 History of hospitalizations due to glucose control problems? [x] Yes [] No Family History [x] Yes [] No Father and grandmother on father side per patient Home Diabetes Medication Regimen Medication Dose Frequency Back in 2020 she was on tresiba about 35 units per patient and mother report; however her insurance changed, she is only on tresiba but cannot get the mealtime insulin; she states she gives herself insulin based on her glucose readings, but does not really know the dose or insulin regimen Comments: Per Dr Bruner [facility] 04/28/2025 Glucose Monitoring Teaching Device used to test glucose at home? [x] CGM [] None [x] Glucometer A Dexcom G7 CGM was placed at the back of Ms Solitario right upper arm per Dr Johnson instruction. Thad downloaded, sensor paired. Use explained. Instruction Manual given. Verbalized understanding. Rebls glucometer was given to patient along with 100 lancets and 100 test strips. Patient demonstrated understanding of glucometer use. Frequency of glucose checks at home? Before insulin administration, before meals, whenever you experience symptoms of hypoglycemia (headache, sweatiness, shakiness, clamminess, fast or pounding heart rate, anxious, confusion, light headiness) Lifestyle Patient usually consumes: [x] Breakfast [x] Lunch [x] Dinner [x] Snacks Does patient have difficulty affording food? [] Yes [x] No Does patient drink: [x] Reg. Soda [x] Juice [x] Other drinks w/ carbs Ms Solitario is aware of the need and also willing to consider staying on water and sugar free beverages for hydration. Teaching Points Reviewed Info Teaches Back Verbalized understanding Needs Reinforce-ment N/A Plate method/portion sizes/moderation [x] [x] [x] [] [] Patient able to describe the plate method. Exercise and Weight Loss Body mass index is 25.79 kg/m?. [] < 19 [] 30 - 35 [] 19 - 25 [] 36 - 40 [x] 26 - 29 [] > 40 Smoking and ETOH Use Does patient smoke/vape? [] Yes [x] No If former, quit date? Does patient drink ETOH? [] Yes [x] No Amount and frequency? Teaching Points Reviewed Info Teaches Back Verbalized understanding Needs Reinforce- ment N/A Increased risk of DM complications w/ smoking. [] [] [] [] [x] Smoking Cessation [] [] [] [] [x] Hypoglycemia + ETOH use [] [] [] [] [x] Should eat with ETOH use. [] [] [] [] [x] Skills Reviewed Info Teaches Back Verbalized understanding Performed Task N/A Drawing up Insulin Included in teaching: checking label for type if insulin and expiration date; rolling insulin between hands if applicable; cleaning vial with alcohol; drawing up air and injecting into vial; drawing up correct dose of insulin [x] [x] [x] [] [] Ms Solitario stated she uses insulin since 2013 via pens and syringes as well as insulin pens. Injecting Insulin w/ Syringe Included in teaching: selecting appropriate injection site; determining when to avoid certain areas; rotating injection sites; prepping skin before injection; injecting insulin; counting to 5 before removing needle; storage of insulin and needle disposal [x] [x] [x] [] [] Ms Solitario stated she uses insulin since 2013 via pens and syringes as well as insulin pens. Injecting Insulin w/ Pen Included in teaching: checking label for type of insulin and expiration date; rolling insulin between hands if applicable; inserting needle on pen; priming pen; dialing correct dose; selecting appropriate injection site; determining when to avoid certain areas; rotating injection sites; prepping skin before injection; injecting insulin; counting to 10 before removing needle; storage of insulin and needle disposal [x] [x] [x] [x] [] Demo pen available for demonstration. Priming of pen reviewed with Ms Solitario. Ms Solitario stated she uses insulin since 2013 via pens and syringes as well as insulin pens. Mrs Solitario requested her insulin as pens at hospital discharge. Dr Terrell was informed of her request. Glucometer Use Included in teaching: preparing lancet device; washing hands before using sticking self; preparing glucometer; placing blood on testing strip; when to retest; alternate testing sites [x] [x] [x] [] [] A DexPatient Home Monitoring G7 CGM was placed at the back of Ms Solitario right upper arm per Dr Johnson instruction. Thad downloaded, sensor paired. Use explained. Instruction Manual given. Verbalized understanding. [employer] Pro glucometer was given to patient along with 100 lancets and 100 test strips. Patient demonstrated understanding of glucometer use. Insulin Adjustment Insulin dose depends on glucose and if patient eating. [x] [x] [x] [] [] Holding parameters [x] [x] [x] [] [] Sliding scale [x] [x] [x] [] [] Hypoglycemia Management Does patient get s/s of hypoglycemia? [x] Yes [] No [] N/A Frequency of hypoglycemia? Teaching Points Reviewed Info Teaches Back Verbalized understanding Needs Reinforce- ment N/A S/S of hypoglycemia. [x] [x] [x] [] [] Hypoglycemia treatment. [x] [x] [x] [] [] Discharge Planning Needs Jatinder Taylor MD FELLOW MEN- Endocrine Progress Notes Incomplete Date of Service: 04/30/2025 1:06 PM Creation Time: 04/30/2025 1:06 PM Preliminary Insulin Instructions - After leaving the hospital (A) GENERAL INSTRUCTIONS Your insulin doses need to be adjusted according to what you eat and depending on you blood sugar readings Your glucose (sugar) goals are:120-150 mg/dL range for now Check blood sugar before each meal OR if you have symptoms of low sugar (weakness, fatigue, sweats, dizziness) (B) YOU ARE GOING HOME ON: 1) Tresiba (degludec) 20 units before lunch at noon (05/01/25) and continue 20 units at breakfast the day after tomorrow (05/02/25) units at breakfast If not eating or if blood sugar is between 80 and 120 give HALF the dose. If blood sugar less than 80: Eat a meal and recheck. Give half dose of insulin once blood sugar over 120. 2) Humalog (lispro) insulin 5 units before breakfast, lunch and dinner If NOT eating or if blood sugar less than 80: SKIP insulin dose, eat and recheck in 15 minutes until sugar is above 100 twice in a row. If eating less than half your meal or if blood sugar is between 80 and 120: Take only half of your insulin dose 3) Extra Humalog insulin If blood sugar before meal is higher than 160: Blood sugar 160 to 200, give 1 unit. Blood sugar 201 to 240, give 2 units. Blood sugar 241 to 280, give 3 units. Blood sugar 281 to 300, give 4 units. Blood sugar greater than 300, give 5 units, recheck in 3 hours and cover again with sliding scale. (C) ADJUSTING INSULIN DOSES EVERY 2-3 DAYS: For blood sugar levels in LOWER RANGE (All readings, 2 days in a row, consistently UNDER 120 mg/dL): Decrease Tresiba by 4 units. Decrease all doses of Humalog insulin with meals by 1 units. For blood sugar levels in HIGHER range (All readings, 2 days in a row, consistently GREATER THAN 170 but NONE under 120): Increase Tresiba by 2 units each. Increase all doses of Humalog insulin with meals by 1 units each. (D) OTHER INSTRUCTIONS: Test your urine with a ketone strips if you feel unwell Follow up with primary care provider in 1-2 weeks and with your Endocrinology within 4-5 weeks If you are vomiting and cannot eat Do not give scheduled meal time Humalog insulin. Take only half of Tresiba insulin and call your doctor. You may use sliding scale to correct for high sugars even if not eating. Call your doctor if you have more than 2 readings under 80 or more than 3 over 300 mg/dL to receive further instructions. If you have a reading over 450, recheck and if still high, you need immediate attention. Call your doctor or go to the emergency room/urgent care. Always have glucose tablets on you and a pack of peanut butter crackers, in case you have a low sugar (weakness, fatigue, sweats, dizziness). Get a glucagon emergency kit to have for low sugar emergencies just in case you cannot eat/drink to get sugar up. CALL the access center at ([phone]) if you have any urgent questions regarding your insulin instructions. If you are vomiting and your sugar is in 300s, go to the ER. Additional Notes: Tresiba is your long-acting insulin (covers your sugars for 24 hours). Tresiba dose is working right for you if your blood sugar readings when you wake up (before breakfast) are consistently in target range. HUMALOG is your short-acting insulin (lasts about 4-5 hours) and is used to cover meals. Take your scheduled dose with each meal as instructed above. DO NOT take it if you do are not eating. INSULIN IF YOU ARE UNABLE TO HAVE ACCESS TO TRESIBA You can purchase your insulin NPH medication from [employer]. 1) (NOVOLIN N) NPH 14 units before breakfast and 10 units at dinner If not eating or if blood sugar is between 80 and 120 give HALF the dose. If blood sugar less than 80 DO NOT GIVE dose and eat a sandwich/meal. Recheck in 15 minutes. Sugar should be above 100 twice in a row. Explanatory comments: You are going home on two kinds of insulin: NPH Insulin (looks cloudy) is your long-acting insulin. It is also called Novolin N. It covers your sugars for 12-14 hours. NPH dose is working right for you if your sugar readings when you wake up (before breakfast) are consistently in the 120-150 mg/dL range. Preliminary insulin instructions were reviewed with Ms Solitario. She Verbalized understanding. Inpatient Diabetes Education Learner [x] Patient If other, explain Patient readiness to learn [x] AO x 4 [] Other If other, explain Preferred method of learning [x] Verbal explanation [x] Printed handout [x] Demonstration [] Video Family present [x] Yes [] No If yes who? Mother at bedside Teaching Points Reviewed Info Teaches Back Verbalized understanding Needs Reinforce-ment Understanding of diagnosis [x] [x] [x] [] [] Understanding terminal supervisor effects of diabetes [x] [x] [x] [] [] Knows blood sugar goals [x] [x] [x] [] [] Symptoms, prevention, and treatment of hypoglycemia [x] [x] [x] [] [] Symptoms, prevention, and treatment of hyperglycemia [x] [x] [x] [] [] Understands when and how glucagon pen should be used [x] [x] [x] [] [] Requested glucagon prescription for home. Dr Terrell informed of patient request Understands long-acting insulin effects [x] [x] [x] [] [] Understands short acting insulin effects [x] [x] [x] [] [] Understands sharps disposal [x] [x] [x] [] [] Healthy meals for diabetic control. The Plate Method. [x] [x] [x] [] [] Understands when to call provider [x] [x] [x] [] [] Understands when to go to the emergency room [x] [x] [x] [] [] Information Provided in Handouts Glucose Log Sheets Survival Skills Signs of Hypoglycemia and what to do Insulin how to use and where to inject When to use glucagon When to call your provider When to attend the Emergency Room The plate method and nutrition Link to video on diabetes skills Educator Name: Savi Momin RN Date: 04/30/2025 [facility]2025-07-13 15:30:20 Problem: Falls, Risk of Goal: Absence of falls Outcome: Progressing as expected Problem: Discharge Planning Goal: Adequate for discharge Outcome: Progressing as expected Goal: Effective communication Outcome: Progressing as expected Problem: Pain Goal: Control of pain at or below patient's documented comfort goal Outcome: Progressing as expected Goal: Reduction in pain sensation Outcome: Progressing as expected Lui Lott [place] [id number] 11:09:33 Problem: Falls, Risk of Goal: Absence of falls Outcome: Progressing as expected Problem: Discharge Planning Goal: Adequate for discharge Outcome: Progressing as expected Goal: Effective communication Outcome: Progressing as expected Problem: Pain Goal: Control of pain at or below patient's documented comfort goal Outcome: Progressing as expected Goal: Reduction in pain sensation Outcome: Progressing as expected [facility]2025-07-12 04:13:29 Problem: Discharge Planning Goal: Effective communication Outcome: Progressing as expected Problem: Pain Goal: Control of pain at or below patient's documented comfort goal Outcome: Progressing as expected Goal: Reduction in pain sensation Outcome: Progressing as expected [place] [id number] 23:50:11 Nurse Report Report given to Angelita ROBERTSON at [facility].. Chief complaint, assessment findings, infusion verify and orders reviewed. Plan of care discussed at bedside with patient and both nurses. Patient/family members verbalized understanding. DOMO TENA RN [facility] Domo Tena RNMichael [place] [id number] 23:45:00 Patient en route to [facility] via [facility]. Patient has IV D5 1/2 [id number] + 20 MEq Kcl infusing at 200 cc/hr, and an insulin gtt infusing via pump at 0.12 units/kg/hr. Last blood sugar 176 by fingerstick. Patient alert and responsive upon departure from ED. Patient medicated with Zofran 4 mg IV prior to departure-had 400 cc yellow green emesis while in ER. T [place] [id number] 23:36:53 Fingerstick blood sugar 176. IV fluid changed to D5 1/2 Ns 1000cc + 20 MEq KCL at 200 cc/hr as per protocol;. No change made to insulin gtt-continues to infuse at 0.12 units/kg/hr as per ordered DKA protocol. [facility] here to transport patient to [facility]. T [place] [id number] 22:12:42 Fingerstick blood sugar 207. Insulin gtt increased to 0.12 units/kg/hr as per ordered DKA protocol. T [place] [id number] 21:42:51 Called [facility] for transport, ETA is around 2310. T Aster Gardner [place] [id number] 21:21:12 IV insulin gttg initiated as ordered at 0.1 unit/kg/hr as per DKA protocol. Fingerstick blood sugaar 220. IN 1/2 NS infusing at 250 cc/hr as [facility] 16:51:36 Patient states: "I've been vomiting for 4 days. I came here yesterday and they sent me home with some nausea meds" Presents to ER with vomit in emesis bag. Pmhx: type 1 diabetic. Emma Batres RNTr[facility]ull [facility] [id number] 16:43:00 Associated Order(s): Critical Care [facility] Emergency Department Note Patient Name: Nuria Solitario Date of : 2005 19 year old female Treatment Room: [facility] Primary Care Physician: PATIENT DOES NOT HAVE A PCP Patient Escorted by: Family [5] Mode of Arrival: Personal means [1] EMS Treatment Prior to ED Arrival: ARCHITECTURE INTERN treatment: Medication (comment) ARCHITECTURE INTERN treatment comments: zofran at 1500 Travel and Exposure Screening: Symptoms Does patient have any of these symptoms?: (not recorded) Exposure Screening Has patient had contact with someone with a communicable disease in the last month?: (not recorded) Diseases exposed to:: (not recorded) Is Patient ?: (not recorded) Exposure Date: (not recorded) Chief Complaint: Chief Complaint Patient presents with Vomiting History of Present Illness: History of Present Illness History provided by: Patient Vomiting Severity: Severe Duration: 4 days Timing: Intermittent Number of daily episodes: Many Quality: Stomach contents How soon after eating does vomiting occur: 3 minutes Progression: Worsening Chronicity: Recurrent Recent urination: Decreased Relieved by: Nothing Worsened by: Liquids Ineffective treatments: Liquids Associated symptoms: no abdominal pain, no chills, no cough, no diarrhea, no fever, no headaches, no myalgias and no sore throat Risk factors: diabetes Past Medical History/Immunizations: History reviewed. No pertinent past medical history. Tetanus received in last 5 years: No Allergies: No Known Allergies Past Social History: Substance & Sexual Activity No substance use or sexual activity history on file. Past Surgical History: History reviewed. No pertinent surgical history. Review of Systems: Review of Systems Constitutional: Positive for activity change. Negative for chills, diaphoresis and fever. HENT: Negative for ear pain and sore throat. Eyes: Negative for photophobia, pain, discharge and redness. Respiratory: Negative for cough and shortness of breath. Gastrointestinal: Positive for vomiting. Negative for abdominal pain, blood in stool and diarrhea. Genitourinary: Negative for frequency, hematuria, flank pain and difficulty urinating. Musculoskeletal: Negative for myalgias, neck pain and neck stiffness. Neurological: Negative for seizures, weakness and headaches. Physical Exam: Physical Exam ED Triage Vitals [04/27/25 1652] Weight 70.3 kg (155 lb) Actual or estimated Estimated by patient/family report Height 1.651 m (5' 5") BP (!) 171/95 Pulse 125 Resp 16 Temp 36.9 ?C (98.4 ?F) Temp source Oral SpO2 100 % Measured on Room air Physical Exam Vitals reviewed. Constitutional: Appearance: Normal appearance. HENT: Head: Normocephalic and atraumatic. Right Ear: Tympanic membrane and external ear normal. Left Ear: Tympanic membrane and external ear normal. Mouth/Throat: Mouth: Mucous membranes are moist. Pharynx: Oropharynx is clear. No oropharyngeal exudate or posterior oropharyngeal erythema. Eyes: General: No scleral icterus. Right eye: No discharge. Left eye: No discharge. Extraocular Movements: Extraocular movements intact. Conjunctiva/sclera: Conjunctivae normal. Pupils: Pupils are equal, round, and reactive to light. Cardiovascular: Rate and Rhythm: Regular rhythm. Tachycardia present. Pulses: Normal pulses. Heart sounds: No murmur heard. No friction rub. Pulmonary: Effort: Pulmonary effort is normal. Tachypnea present. Breath sounds: Normal breath sounds. No rhonchi or rales. Abdominal: General: Bowel sounds are normal. Palpations: Abdomen is soft. There is no mass. Tenderness: There is no abdominal tenderness. There is no right CVA tenderness, left CVA tenderness, guarding or rebound. Musculoskeletal: General: No swelling, tenderness or signs of injury. Cervical back: Neck supple. No tenderness. Right lower leg: No edema. Left lower leg: No edema. Lymphadenopathy: Cervical: No cervical adenopathy. Skin: General: Skin is warm and dry. Capillary Refill: Capillary refill takes less than 2 seconds. Findings: No rash. Neurological: General: No focal deficit present. Mental Status: She is alert and oriented to person, place, and time. Cranial Nerves: No cranial nerve deficit. Motor: No weakness. Psychiatric: Mood and Affect: Mood normal. Behavior: Behavior normal. Thought Content: Thought content normal. Judgment: Judgment normal. Radiology: XR Chest 1 vw Final Result Ordering physician: SUDHIR MCFADDEN Indication: Shortness of breath, vomiting Comparison: None Technical quality: Adequate Findings: Single AP view of the chest. The cardiopericardial silhouette is within normal limits. The lungs are clear bilaterally. The visualized bony thorax is intact. No free air is seen under either hemidiaphragm. IMPRESSION Impression: No radiographic evidence for acute cardiopulmonary disease. No free air is seen under either hemidiaphragm to suggest pneumoperitoneum. END REPORT RL: [id number] AFC: [id number] Lab Results: Lab Results CBC WITH DIFF - Abnormal Result Value Ref Range WBC 28.12 (*) 4.30 - 11.10 10*3/?L RBC 5.08 3.93 - 5.25 10*6/?L HGB 16.0 (*) 11.6 - 15.0 g/dL HCT 46.4 (*) 35.7 - 45.2 % MCV 91.3 80.6 - 95.5 fL MCH 31.5 25.9 - 32.8 pg MCHC 34.5 31.6 - 35.1 g/dL RDW-SD 41.4 39.0 - 49.9 fL RDW-CV 12.4 12.0 - 15.5 % PLT 380 (*) 166 - 358 10*3/?L MPV 10.0 9.5 - 12.9 fL NRBC/100 WBC 0.0 0.0 - 10.0 /100 WBCs NRBC x103<0.01 10*3/?L GRAN MAT (NEUT) % 88.8 % IMM GRAN % 0.80 % LYMPH % 5.5 % MONO % 4.6 % EOS % 0.0 % BASO % 0.3 % GRAN MAT x103(ANC) 24.96 (*) 1.88 - 7.09 10*3/uL IMM GRAN x1030.22 (*) 0.00 - 0.06 10*3/uL LYMPH x1031.55 1.32 - 3.29 10*3/uL MONO x1031.30 (*) 0.33 - 0.92 10*3/uL EOS x103<0.03 (*) 0.03 - 0.39 10*3/uL BASO x1030.09 (*) 0.01 - 0.07 10*3/uL COMP. METABOLIC PANEL (62027) - Abnormal NA 138 135 - 145 mmol/L K 4.4 3.5 - 5.0 mmol/L CL 106 98 - 108 mmol/L CO2 TOTAL 7 (*) 23 - 31 mmol/L AGAP 25 (*) 2 - 16 BUN 8 7 - 23 mg/dL GLUCOSE 273 (*) 70 - 110 mg/dL CREATININE 0.45 (*) 0.50 - 1.04 mg/dL TOTAL BILI 0.7 0.1 - 1.1 mg/dL CALCIUM 9.4 8.6 - 10.6 mg/dL T PROTEIN 9.8 (*) 6.3 - 8.2 g/dL ALBUMIN 5.5 (*) 3.5 - 5.0 g/dL ALK PHOS 72 34 - 122 U/L ALTv 23 5 - 35 U/L AST(SGOT) 18 13 - 40 U/L eGFR 140.6 mL/min/1.73m2 URINALYSIS - Abnormal APPEARANCE Slightly Cloudy (*) Clear COLOR Straw (*) Yellow PH 5.0 4.8 - 8.0 SP GRAVITY 1.015 1.003 - 1.030 GLU U QUAL 500 mg/dL (*) Normal BLOOD 1+ (*) Negative KETONES 80 mg/dL (*) Negative PROTEIN 500 mg/dL (*) Negative UROBILIN Normal Normal BILIRUBIN Negative Negative NITRITE Negative Negative LEUK CYNTHIA 250/uL (*) Negative RBC/HPF 11 (*) 0 - 3 HPF WBC/HPF 9 (*) 0 - 5 HPF BACTERIA Few (*) Negative MUCOUS Slight (*) Negative LPF SQ EPITH 2 HPF HYAL CAST 1 <=2 LPF ACUTE CARE ARTERIAL BLOOD GAS - Abnormal PH 7.06 (*) 7.35 - 7.45 PCO2 31 (*) 35 - 45 mmHg PO2 32 (*) 80 - 100 mmHg HCO3 8 (*) 22 - 26 mEq/L BE -20.8 (*) -3.0 - 3.0 mEq/L POCT GLUCOSE(AGE >30DAYS) - Abnormal POCT Glu (age>30days) 220 (*) 70 - 110 mg/dL POCT GLUCOSE(AGE >30DAYS) - Abnormal POCT Glu (age>30days) 207 (*) 70 - 110 mg/dL GLYCOSYLATED HEMOGLOBIN (A1C) - Abnormal HGB A1C 12.0 (*) 4.0 - 5.7 % POCT GLUCOSE (AUTOMATED) - Abnormal POCT GLU 220 (*) 70 - 110 mg/dL POCT GLUCOSE (AUTOMATED) - Abnormal POCT GLU 207 (*) 70 - 110 mg/dL LIPASE - Normal LIPASE 46 0 - 220 U/L LACTIC ACID WITH 2 HOUR REFLEX - Normal LACTIC ACID 1.96 0.50 - 2.20 mmol/L MAGNESIUM - Normal MAGNESIUM 1.7 1.7 - 2.4 mg/dL PHOSPHORUS - Normal PHOSPHORUS 4.3 2.5 - 5.0 mg/dL POCT TEST POCT PREG Negative On board controls acceptable with C Line No POCT PREG LOT # [id number] POCT PREG TEST DATE 2026-09-12 POCT GLUCOSE(AGE >30DAYS) POCT GLUCOSE(AGE >30DAYS) OSMOLALITY, SERUM OR PLASMA BETA HYDROXY-BUTYRATE POCT GLUCOSE(AGE >30DAYS) POCT GLUCOSE(AGE >30DAYS) POCT GLUCOSE(AGE >30DAYS) EKG: If EKG completed, see Procedure Note. Orders and Treatments: Orders Placed This Encounter Procedures Critical Care XR Chest 1 vw CBC WITH DIFF COMP. METABOLIC PANEL (93400) LIPASE POCT TEST URINALYSIS LACTIC ACID WITH 2 HOUR REFLEX Acute Care Arterial Blood Gas. POCT GLUCOSE(AGE >30DAYS) Osmolality Serum Magnesium Serum Phosphorus Serum Betahydroxy-Butyrate Glycosylated Hemoglobin (A1C) POCT GLUCOSE (AUTOMATED) POCT GLUCOSE (AUTOMATED) Orders Placed This Encounter Medications NaCl 0.9% (NS) bolus infusion 1,000 mL haloperidol lactate (HALDOL) injection 2.5 mg diphenhydrAMINE (BENADRYL) 12.5 mg/5 mL solution 12.5 mg magnesium sulfate in water 2 gram/50 mL (4 %) infusion 2 g NaCl 0.9% (NS) bolus infusion 1,000 mL haloperidol lactate (HALDOL) injection 2.5 mg NaCl 0.45% (1/2NS) IV infusion 1,000 mL D5W 0.45% NaCl (1/2NS) 1 L + KCL 20 mEq insulin regular in 0.9 % NaCl (MYXREDLIN) 100 unit/100 mL (1 unit/mL) RTU IV infusion ondansetron (ZOFRAN (PF)) injection 4 mg First Provider Eval: ED Events Date/Time Event User Comments 04/27/251647 Medical Screening Begins DOROTHEA RAMIREZ DO -- 04/27/251647 First Provider Evaluation DOROTHEA RAMIREZ DO -- ED COURSE Diagnosis/Impression as of 04/27/25 2302 Vomiting, persistent, in adult Diabetic ketoacidosis without coma associated with other specified diabetes mellitus Results Procedures: Critical Care Performed by: Sudhir Mcfadden DO Authorized by: Sudhir Mcfadden DO Critical care provider statement: Critical care time (minutes): 37 Critical care time was exclusive of: Separately billable procedures and treating other patients and teaching time Critical care was necessary to treat or prevent imminent or life-threatening deterioration of the following conditions: Endocrine crisis Critical care was time spent personally by me on the following activities: Evaluation of patient's response to treatment, examination of patient, re-evaluation of patient's condition, pulse oximetry and ordering and review of radiographic studies Care discussed with: accepting provider at another facility MDM: Assessment & Plan Medical Decision Making Patient was evaluated for the complaint of Vomiting Diagnoses considered but not limited to: Dehydration Hypernatremia Hypoglycemia Hyponatremia Pneumonia Sepsis Urinary Tract Infection Volume Depletion Pancreatitis (acute) Pyelonephritis Vomiting DKA. Labs:were ordered, and resulted, any relevant abnormalities were considered. Imaging:Ordered, and resulted, any relevant abnormalities were considered. Procedures:were not performed. History, physical exam findings, results of visit, diagnosis, medication regimens and plan of future care have been considered. Additional MDM may be found in the ED course. Vital signs were rechecked before final disposition and determined to be stable prior to transfer.. Amount and/or Complexity of Data Reviewed Labs: ordered. Decision-making details documented in ED Course. Radiology: ordered. Decision-making details documented in ED Course. Risk OTC drugs. Prescription drug management. Flowsheet Documentation: Patient seen initial had multiple episodes of vomiting. Antiemetics were given. The patient's pH was noted to be low and the patient has an anion gap along with a very low serum bicarb. Findings were consistent with diabetic ketoacidosis and aggressive IV hydration was initiated. An insulin drip was also initiated for this patient. Multiple glucose determinations were done. The patient's tachycardia persisted but did improve. The nausea and vomiting also improved. Scoring Tools: No data recorded Disposition/Condition: ED Disposition None Discharge Medications: Patient's Medications START taking these medications No medications on file CONTINUE taking these medications which have NOT CHANGED DOXYCYCLINE HYCLATE 100 MG CAPSULE Take 1 capsule by mouth in the morning and 1 capsule in the evening. IBUPROFEN 600 MG TABLET Take 1 tablet by mouth every 8 (eight) hours as needed for Pain (scale 4-6) or Temp > 38.5 C. INSULIN ASPART U-100 (NOVOLOG FLEXPEN U-100 INSULIN) 100 UNIT/ML (3 ML) INJECTION inject 10 Units under the skin in the morning and 10 Units at noon and 10 Units in the evening. inject before meals. INSULIN NEEDLES, DISPOSABLE, (BD ULTRAFINE III MINI PEN) 31 GAUGE X 3/16" NDLE Insulin 3 times daily ONDANSETRON 4 MG DISINTEGRATING TABLET Take 1 tablet by mouth every 8 hours as needed for Nausea and Vomiting (N/V). PREDNISONE 20 MG TABLET Take two tablets daily for 6 days, then one tablet daily for 6 days, then half tablet daily for 6 days. START taking Modified Medications as Prescribed No medications on file STOP taking these medications No medications on file Follow-up: Electronically signed by: Sudhir Mcfadden DO 04/27/25 8434 [facility]2025-07-10 14:02:38 Patient verbalized understanding of dc papers. Take meds as prescribed. Follow up with pcp. Return to er if s/s worsen. IV removed by this RN. VSS. GCS15. Resp even and unlabored. This RN stressed importance of checking blood glucose at home and treating it as prescribed by pcp. Pt tolerated fluids PO. Ambulatory w/ steady gait. NA [facility] [id number] 13:39:45 Patient awake and family at bedside at this time. Pt given cup of water for PO challenge. [place] [id number] 12:19:56 Pt resting comfortably in stretcher. Equal rise and fall of chest noted. Remains on monitor. VSS. NAD. Call light in reach [place] [id number] 10:31:00 Assumed care of patient at this time, placed in room 6. 19 y/o female verbalized name and c/o nausea and vomiting going on for three days, now having burning chest pain that worsens when taking a breath. States she has not been able to keep anything down. PMH IDDM, does not take insulin or check BG at home. Pt in apparent discomfort, vomiting small amounts of yellow gastric contents. IV placed in right AC, tolerated well. Pending lab results, family at bedside, call light in reach. [facility]2025-07-10 10:02:03 Pt states she has been vomiting x3days, constant chest pain that began 0600 today, cannot keep water down. Non compliant with medication. Hx IDDM [facility] Tori Hayden [facility]Tr[facility] [id number] 10:00:00 Associated Order(s): EKG-12 Lead ROUTINE ONCE Pre-Procedure Diagnose(s): Nausea and vomiting, unspecified vomiting type Post-Procedure Diagnose(s): Nausea and vomiting, unspecified vomiting type [facility] Emergency Department Note Patient Name: Nuria Solitario Date of : 2005 19 year old female Treatment Room: MI6 Primary Care Physician: PATIENT DOES NOT HAVE A PCP Patient Escorted by: Self [9] Mode of Arrival: Personal means [1] EMS Treatment Prior to ED Arrival: ARCHITECTURE INTERN treatment: None Travel and Exposure Screening: Symptoms Does patient have any of these symptoms?: (not recorded) Exposure Screening Has patient had contact with someone with a communicable disease in the last month?: (not recorded) Diseases exposed to:: (not recorded) Is Patient ?: (not recorded) Exposure Date: (not recorded) Chief Complaint: Chief Complaint Patient presents with Vomiting Chest Pain History of Present Illness: History of Present Illness The patient presents from home for evaluation for nausea and vomiting for the past few days. No sick contacts. No bad food exposure. No recent trips or travel or antibiotics. No diarrhea. She does have a history of type 1 diabetes and admits to noncompliance with her insulin. She has also not checked her sugar in quite some time. She also admits to smoking marijuana. Here for evaluation. Past Medical History/Immunizations: History reviewed. No pertinent past medical history. Tetanus received in last 5 years: Unknown Allergies: No Known Allergies Past Social History: Substance & Sexual Activity No substance use or sexual activity history on file. Past Surgical History: History reviewed. No pertinent surgical history. Review of Systems: Review of Systems Constitutional: Negative for chills and fever. Respiratory: Negative for cough and shortness of breath. Cardiovascular: Negative for chest pain. Gastrointestinal: Positive for nausea and vomiting. Negative for abdominal pain. Genitourinary: Negative for dysuria. Musculoskeletal: Negative for arthralgias, neck pain and neck stiffness. Skin: Negative for wound. Neurological: Negative for dizziness. Psychiatric/Behavioral: Negative for agitation. Endocrine: Negative for goiter. Physical Exam: Physical Exam ED Triage Vitals [04/26/25 1004] Weight 70.3 kg (155 lb) Actual or estimated Height 1.651 m (5' 5") BP (!) 152/106 Pulse 106 Resp 18 Temp 36.3 ?C (97.3 ?F) Temp source Oral SpO2 100 % Measured on Room air Physical Exam Radiology: No orders to display Lab Results: Lab Results CBC WITH DIFF - Abnormal Result Value Ref Range WBC 25.46 (*) 4.30 - 11.10 10*3/?L RBC 4.96 3.93 - 5.25 10*6/?L HGB 15.5 (*) 11.6 - 15.0 g/dL HCT 43.6 35.7 - 45.2 % MCV 87.9 80.6 - 95.5 fL MCH 31.3 25.9 - 32.8 pg MCHC 35.6 (*) 31.6 - 35.1 g/dL RDW-SD 38.4 (*) 39.0 - 49.9 fL RDW-CV 12.0 12.0 - 15.5 % PLT 359 (*) 166 - 358 10*3/?L MPV 10.4 9.5 - 12.9 fL NRBC/100 WBC 0.0 0.0 - 10.0 /100 WBCs NRBC x103<0.01 10*3/?L GRAN MAT (NEUT) % 84.1 % IMM GRAN % 0.60 % LYMPH % 11.3 % MONO % 3.6 % EOS % 0.2 % BASO % 0.2 % GRAN MAT x103(ANC) 21.42 (*) 1.88 - 7.09 10*3/uL IMM GRAN x1030.15 (*) 0.00 - 0.06 10*3/uL LYMPH x1032.87 1.32 - 3.29 10*3/uL MONO x1030.91 0.33 - 0.92 10*3/uL EOS x1030.05 0.03 - 0.39 10*3/uL BASO x1030.06 0.01 - 0.07 10*3/uL URINALYSIS - Abnormal APPEARANCE Clear Clear COLOR Yellow Yellow PH 5.0 4.8 - 8.0 SP GRAVITY 1.040 (*) 1.003 - 1.030 GLU U QUAL 500 mg/dL (*) Normal BLOOD Negative Negative KETONES 80 mg/dL (*) Negative PROTEIN 30 mg/dL (*) Negative UROBILIN Normal Normal BILIRUBIN Negative Negative NITRITE Negative Negative LEUK CYNTHIA Negative Negative RBC/HPF 2 0 - 3 HPF WBC/HPF 2 0 - 5 HPF BACTERIA Few (*) Negative MUCOUS Slight (*) Negative LPF SQ EPITH 1 HPF COMP. METABOLIC PANEL (93381) - Abnormal NA 138 135 - 145 mmol/L K 3.7 3.5 - 5.0 mmol/L CL 103 98 - 108 mmol/L CO2 TOTAL 17 (*) 23 - 31 mmol/L AGAP 18 (*) 2 - 16 BUN 12 7 - 23 mg/dL GLUCOSE 334 (*) 70 - 110 mg/dL CREATININE 0.32 (*) 0.50 - 1.04 mg/dL TOTAL BILI 0.7 0.1 - 1.1 mg/dL CALCIUM 9.4 8.6 - 10.6 mg/dL T PROTEIN 8.7 (*) 6.3 - 8.2 g/dL ALBUMIN 5.1 (*) 3.5 - 5.0 g/dL ALK PHOS 59 34 - 122 U/L ALTv 24 5 - 35 U/L AST(SGOT) 24 13 - 40 U/L eGFR 152.6 mL/min/1.73m2 AC PANEL 21 + LACTIC ACID - Abnormal PH 7.35 7.32 - 7.42 PCO2 MCKAYLA 33 (*) 41 - 51 mmHg PO2 MCKAYLA 28 25 - 40 mmHg HCO3 MCKAYLA 18 (*) 24 - 28 mEq/L AC VBE -6.7 -3.0 - 3.0 mEq/L THB MCKAYLA 16.9 (*) 12.0 - 16.0 g/dL %O2HB MCKAYLA 52.8 52.0 - 63.0 % %COHB MCKAYLA 0.9 0.0 - 1.5 % %METHB MCKAYLA 0.1 (*) 0.4 - 1.5 % VOL%O2 MCKAYLA 12.5 (*) 6.0 - 12.0 % NA 139 135 - 145 mmol/L K+ 3.7 3.5 - 5.0 mmol/L AC CA IONZ 4.80 4.50 - 5.30 mg/dL GLUCOSE 349 (*) 70 - 110 mg/dL LACTIC ACID 1.67 0.50 - 2.20 mmol/L POCT TEST - Normal POCT PREG Negative On board controls acceptable with C Line Yes POCT PREG LOT # [id number] POCT PREG TEST DATE 2026-09-12 TROPONIN I - Normal TROPONIN I 0.003 <=0.034 ng/mL EKG: If EKG completed, see Procedure Note. Orders and Treatments: Orders Placed This Encounter Procedures CBC WITH DIFF URINALYSIS POCT TEST COMP. METABOLIC PANEL (85226) TROPONIN I AC PANEL 21 + LACTIC ACID Orders Placed This Encounter Medications NaCl 0.9% (NS) bolus infusion 1,000 mL metoclopramide HCl (REGLAN) injection 10 mg famotidine (PEPCID (PF)) 20 mg in NaCl 0.9% (NS) 5 mL IV push haloperidol lactate (HALDOL) injection 2.5 mg ondansetron 4 mg disintegrating tablet First Provider Eval: ED Events Date/Time Event User Comments 04/26/25 1002 Medical Screening Begins DOROTHEA RAMIREZ DO -- 04/26/25 1002 First Provider Evaluation DOROTHEA RAMIREZ DO -- ED COURSE Diagnosis/Impression as of 04/26/25 1349 Nausea and vomiting, unspecified vomiting type Leukocytosis, unspecified type Results Procedures: EKG-12 Lead ROUTINE ONCE Date/Time: 04/26/2025 10:44 AM Performed by: Dorothea Ramirez DO Authorized by: Dorothea Ramirez DO ECG interpreted by ED Physician in the absence of a treater helper: yes Interpretation: Interpretation: normal Rate: ECG rate: 90 ECG rate assessment: normal Rhythm: Rhythm: sinus rhythm Ectopy: Ectopy: none QRS: QRS axis: Normal QRS intervals: Normal QRS conduction: normal ST segments: ST segments: Normal T waves: T waves: normal Q waves: Abnormal Q-waves: not present MDM: Assessment & Plan Medical Decision Making The patient presents from home for evaluation for nausea and vomiting for the past few days. No sick contacts. No bad food exposure. No recent trips or travel or antibiotics. No diarrhea. She does have a history of type 1 diabetes and admits to noncompliance with her insulin. She has also not checked her sugar in quite some time. She also admits to smoking marijuana. Vital signs are stable here in the ER. She has moist mucous membranes. Her heart is regular rhythm. Her lungs are clear bilaterally. Will check laboratory studies to assess for possible DKA although cyclic vomiting syndrome from marijuana use is also in the differential. Will give the patient IV fluid as well as antiemetics. Final disposition pending. 1106 -the patient has continued with dry heaving here in the ER. Will give the patient additional antiemetics as well as reflux medication. Her VBG shows no signs of DKA. 1348 - the patient is doing well here in the ER. Her nausea and vomiting has since resolved. Her laboratory studies showed no evidence of DKA. She was given p.o. challenge here in the ER and able to tolerate by mouth but difficulty. She remained stable here in the ER and is okay for discharge home with PCP follow-up in 1 week. Advised the patient to take her insulin as prescribed and to stop using marijuana. Problems Addressed: Leukocytosis, unspecified type: acute illness or injury Nausea and vomiting, unspecified vomiting type: acute illness or injury Amount and/or Complexity of Data Reviewed Labs: ordered. Decision-making details documented in ED Course. ECG/medicine tests: ordered and independent interpretation performed. Decision-making details documented in ED Course. Risk Prescription drug management. Flowsheet Documentation: Scoring Tools: No data recorded Disposition/Condition: ED Disposition ED Disposition Discharge Condition Stable Comment -- Discharge Medications: Patient's Medications START taking these medications ONDANSETRON 4 MG DISINTEGRATING TABLET Take 1 tablet by mouth every 8 hours as needed for Nausea and Vomiting (N/V). CONTINUE taking these medications which have NOT CHANGED DOXYCYCLINE HYCLATE 100 MG CAPSULE Take 1 capsule by mouth in the morning and 1 capsule in the evening. IBUPROFEN 600 MG TABLET Take 1 tablet by mouth every 8 (eight) hours as needed for Pain (scale 4-6) or Temp > 38.5 C. INSULIN ASPART U-100 (NOVOLOG FLEXPEN U-100 INSULIN) 100 UNIT/ML (3 ML) INJECTION inject 10 Units under the skin in the morning and 10 Units at noon and 10 Units in the evening. inject before meals. INSULIN NEEDLES, DISPOSABLE, (BD ULTRAFINE III MINI PEN) 31 GAUGE X 3/16" NDLE Insulin 3 times daily PREDNISONE 20 MG TABLET Take two tablets daily for 6 days, then one tablet daily for 6 days, then half tablet daily for 6 days. START taking Modified Medications as Prescribed No medications on file STOP taking these medications No medications on file Follow-up: Electronically signed by: Dorothea Ramirez DO 04/26/25 1349 [facility] [id number] 14:32:07 PA denied for insulin aspart. Plan exclusion. [facility] [id number] 00:00:00 Nikolas Rubi [facility]2024-10-01 12:15:36 PA completed [place] [id number] Refill sent Billy Chavarria RNMichael [place] [id number] 11:10:52 ILENE:07/14/24 NOV:none UNKNOWN PHYSICIAN SPECIALTYMichael Ville [id number] 15:45:00 Images from the original note were not included. Venipuncture collection performed by clean technique on the right anticubitus. Total of 1 attempts were made. Slight pressure and a bandage/dressing were applied to the site(s). The patient experienced no complications. The following specimens were processed according to instructions and sent to [facility] laboratories per lab order on 07/14/2024 : LT BLUE SST 1 RED LAV 1 PPT DK GREEN (LiHep) DK GREEN (SodH) DE [place] DK BLUE (K2) DK BLUE (S) ACD Blood Culture NIPT/NTD Patient has been identified by and name and was provided with cup, antiseptic towelette, and clean catch instructions. 1 urine specimen(s) sent. Unpreserved 1 Urine Culture Aptima tube Other urine [facility] [id number] 00:00:00 Nikolas Rubi [facility]2024-08-23 00:00:00 [facility] 23:13:30 Pt given printed and verbal discharge instructions regarding vomiting, UTI, hyperglycemia Prescriptions provided -cefdinir 300 mg capsule -insulin degludec 100 unit/mL (3 mL) Inpn Discussed antibiotic therapy and to take until all completed unless adverse reaction occurs - if occurs, discontinue medication and follow up with pcp/seek medical attention Pt verbalized understanding of instructions, pt awake alert oriented, resp reg unlabored, skin w/d, color appropriate for race, moves all ext well,pt encouraged to follow up with pcp Advised to seek medical attention for new/prolonged/worsening of symptoms No adverse reaction to meds given in ER noted upon discharge PIV d'cd, dressing to site, catheter in tact. Awake, alert oriented, resp reg unlabored, skin w/d, pt leaving amb with steady gait, in no apparent distress Lizzette Pitt [facility] [id number] 19:08:42 Patient reports being type one diabetic and having n/v and abdominal pain every day for 2 weeks. Has not been able to check blood sugar in over a month but has tried to be compliant with insulin, diagnosed in 2013. Miguel A Barnes [facility]
[2025-06-11] MEDS ORDERED: NA CHLORIDE 0.9% 1,000 ML ONE (07:35)
[2025-06-11] MEDS ORDERED: ONDANSETRON 4 MG/2 ML VIAL ONE (07:35)
[2025-06-11] MEDS ORDERED: FAMOTIDINE 20 MG/2 ML VIAL IV ONE (07:35)
[2025-06-11 08:01] LABS: Absolute Lymphocytes (CBC) 2.2 K/uL (0.7-4.9); Hematocrit 39.1 % (36.0-45.0); Hemoglobin 13.1 g/dL (12.0-15.0); MCH 30.2 pg (27.0-35.0); MCHC 33.4 g/dL (32.0-36.0); MCV 90.4 fL (80-100); MPV 7.9 fL (7.6-11.3); Nucleated RBC Absolute Count 0.0 (0-0); Nucleated Red Blood Cells % 0.0 % (0-0); RBC Red Blood Cell Count 4.33 M/uL (3.86-4.86); White Blood Count 17.00 thou/uL (4.3-10.9)
[2025-06-11 08:02] LABS: PH, Venous Blood Gas 7.53 (7.32-7.42)
[2025-06-11 08:03] LABS: Base Excess, VBG -3.5 mmol/L (-2.0-3.0); HCO3, Venous Blood Gas 19.2 mmol/L (21.0-29.0); O2 Saturation, VBG 99.7 % (40.0-70.0); PCO2, Venous Blood Gas 23 mmHg (41-51); PO2, Venous Blood Gas 189 mmHg (25-40)
[2025-06-11 08:21] LABS: Sqamous Epithelial <5 /HPF (None Seen); Urine Culture Reflex Order REFLEXED; Urine Microscopic Reflex YN ORDER UMIC
[2025-06-11 08:22] LABS: ALT/SGPT 19.0 U/L (13-56); Albumin 3.5 g/dL (3.4-5.0); Albumin/Globulin Ratio 0.9 (1.1-1.8); Alkaline Phosphatase 28.0 U/L (45-117); Anion Gap 16.0 mEq/L (5.0-15.0); BUN Blood Urea Nitrogen 7.0 mg/dL (7-18); Globulin 3.8 g/dL (2.3-3.5); Glucose Level 219.0 mg/dL (74-106); Lipase 24.0 U/L (13-75)
[2025-06-11 08:27] LABS: AST/SGOT 16.0 U/L (15-37); Potassium 4.0 mEq/L (3.5-5.1)
--- NOTE | 2025-06-11 11:18 | ER ---
Nurse's Notes [facility] Name: Nuria Acuña Age: 19 yrs Sex: Female : 2005 Arrival Date: 06/11/2025 Time: 06:46 Bed 5 Private MD: Diagnosis: Nausea with vomiting, unspecified;Other specified diabetes mellitus with hyperglycemia Presentation: 06/11 07:05 Chief complaint: Patient states: Abd pain with N/V. Coronavirus screen: Client denies ll1 travel out of the [place] in the last 14 days. fatigue, nausea, vomiting. Ebola Screen: Patient denies travel to an Ebola-affected area in the 21 days before illness onset. Initial Sepsis Screen: Does the patient meet any 2 criteria? No. Patient's initial sepsis screen is negative. Does the patient have a suspected source of infection? No. Patient's initial sepsis screen is negative. Risk Assessment: Do you want to hurt yourself or someone else? Patient reports no desire to harm self or others. 07:05 Method Of Arrival: Ambulatory ll1 07:05 Acuity: MICHELLE 3 ll1 07:30 Onset of symptoms is unknown. hb Historical: - Allergies: 07:05 No Known Allergies; ll1 - PMHx: 07:05 Diabetes - IDDM; ll1 - Immunization history:: Adult Immunizations up to date. - Infectious Disease History:: Denies. - Family history:: not pertinent. - Social history:: Smoking status: Patient denies any tobacco usage or history of. Screenin:45 [facility] ED Fall Risk Assessment (Adult) History of falling in the last 3 months, hb including since admission No falls in past 3 months (0 pts) Confusion or Disorientation No (0 pts) Intoxicated or Sedated No (0 pts) Impaired Gait No (0 pts) Mobility Assist Device Used No (0 pt) Altered Elimination No (0 pt) Score/Fall Risk Level 0 - 2 = Low Risk Oriented to surroundings, Maintained a safe environment, Educated pt \T\ family on fall prevention, incl call for assistance when getting out of bed. Abuse screen: Denies threats or abuse. Denies injuries from another. Nutritional screening: No deficits noted. Tuberculosis screening: No symptoms or risk factors identified. Assessment: 07:45 General: Appears ill, Behavior is cooperative, restless. Pain: Pain currently is 6 out hb of 10 on a pain scale. Neuro: Level of Consciousness is awake, alert, obeys commands, Oriented to person, place, time, situation. Cardiovascular: Patient's skin is warm and dry. Respiratory: Respiratory effort is unlabored, labored, Respiratory pattern is regular, symmetrical. GI: Reports lower abdominal pain, nausea, vomiting. : No signs and/or symptoms were reported regarding the genitourinary system. EENT: No signs and/or symptoms were reported regarding the EENT system. Derm: Skin is pink, warm \T\ dry. Musculoskeletal: No signs and/or symptoms reported regarding the musculoskeletal system. 09:00 Reassessment: Patient appears in no apparent distress at this time. Patient and/or hb family updated on plan of care and expected duration. Pain level reassessed. Patient is alert, oriented x 3, equal unlabored respirations, skin warm/dry/pink. 10:00 Reassessment: Patient appears in no apparent distress at this time. No changes from jp5 previously documented assessment. Patient and/or family updated on plan of care and expected duration. Pain level reassessed. Patient states feeling better. Patient states symptoms have improved. 11:00 Reassessment: Patient appears in no apparent distress at this time. No changes from jp5 previously documented assessment. Patient and/or family updated on plan of care and expected duration. Pain level reassessed. Vital Signs: 07:30 BP 159 / 106; Pulse 96; Resp 22; Temp 98.9(O); Pulse Ox 100% on R/A; Weight 71.67 kg; hb Height 5 ft. 5 in. ; 08:16 BP 130 / 82; Pulse 84; Resp 20; Pulse Ox 99% on R/A; hb 09:15 BP 118 / 74; Pulse 96; Resp 18; Pulse Ox 98% ; jp5 09:22 BP 118 / 74; Pulse 81; Resp 16; Pulse Ox 99% on R/A; hb 10:30 BP 114 / 76; Pulse 96; Resp 18; Pulse Ox 98% ; jp5 11:15 BP 117 / 77; Pulse 88; Resp 20; Pulse Ox 95% ; jp5 07:30 Body Mass Index 26.29 (71.67 kg, 165.1 cm) ED Course: 06:49 Patient arrived in ED. jj6 06:51 Virgilio Diallo MD is Attending Physician. tessie 07:05 Arm band placed on Patient placed in an exam room, on a stretcher. ll1 07:06 Triage completed. ll1 07:20 Attending Physician role handed off by Virgilio Diallo MD ms3 07:20 Jaswinder Chaves DO is Attending Physician. ms3 07:40 EKG done, by ED staff, reviewed by Jaswinder Chaves DO. jp5 07:56 Inserted saline lock: 18 gauge in right antecubital area, using aseptic technique. jp5 Blood collected. Flushed with 10 mL NS. 08:00 Patient has correct armband on for positive identification. Provided Education on: call hb light. 08:00 CBC with Diff Sent. jp5 08:00 CMP Sent. jp5 08:00 Lipase Sent. jp5 08:00 VBG Sent. jp5 08:00 Troponin High Sensitivity Sent. jp5 08:15 Xiomy Galindo, RN is Primary Nurse. hb 11:00 IV discontinued, intact, bleeding controlled, No redness/swelling at site. Pressure jp5 dressing applied. 11:17 Andrew Tate DO is Referral Physician. ms3 11:50 Urine Culture Sent. jp5 12:04 No provider procedures requiring assistance completed. hb Administered Medications: 07:32 CANCELLED (Physician Discretion): ns 0.9% 1000 ml IV at 1000 ml once; to be given as a ms3 bolus over 60 minutes 07:32 CANCELLED (Physician Discretion): ondansetron 4 mg IVP once; over 2 minutes ms3 07:45 Drug: Famotidine IVP 20 mg IVP once; dilute with 10 mL 0.9% NaCl; give over 2 minutes jp5 Route: IVP; Site: right antecubital; 08:15 Follow up: Response: No adverse reaction jp5 07:45 Drug: Ondansetron IVP 4 mg IVP once; over 2 minutes Route: IVP; Site: right antecubital;jp5 08:15 Follow up: Response: No adverse reaction jp5 07:58 Drug: NS 0.9% IV 1000 ml IV at 1 bolus Per protocol; to be given as a bolus over 60 jp5 minutes Route: IV; Rate: 1 bolus; Site: right antecubital; Delivery: Primary tubing; 09:00 Follow up: Response: No adverse reaction; IV Status: Completed infusion; IV converted jp5 to saline lock; IV Intake: 1000ml 11:45 Drug: Ondansetron PO 4 mg PO once Route: PO; jp5 Medication: 08:00 VIS not applicable for this client. hb Point of Care Testing: Blood Glucose: 07:30 Blood Glucose: 195 mg/dL; hb Ranges: Intake: 09:00 IV: 1000ml; Total: 1000ml. jp5 Outcome: 11:17 Discharge ordered by . ms3 12:05 Discharged to home ambulatory, hb 12:05 Condition: stable 12:05 Discharge instructions given to patient, Instructed on discharge instructions, follow up and referral plans. medication usage, Demonstrated understanding of instructions, follow-up care, medications, Prescriptions given X 1, 12:07 Patient left the ED. hb Signatures: Virgilio Diallo MD MD cha Baxter, Heather, RN RN Umang Krishnamurthy, RN RN ll1 Jaswinder Chaves DO DO ms3 Clover Stephen jj6 Joana Chong RN RN jp5
--- NOTE | 2025-06-11 11:18 | EDPHYS ---
Physician Documentation [facility] Name: Nuria Acuña Age: 19 yrs Sex: Female : 2005 Arrival Date: 06/11/2025 Time: 06:46 Bed 5 Private MD: ED Physician Jaswinder Chaves HPI: 06/11 06:57 This 19 yrs old Female presents to ER via Unassigned with complaints of tessie Abdominal Pain, Low Back Pain, Nausea/Vomiting, Type I DM. 06:57 The patient presents with pain that is acute, with no known mechanism of injury. The tessie symptoms are located in the low back. The pain does not radiate. Modifying factors: The patient symptoms are alleviated by nothing. Historical: - Allergies: 07:05 No Known Allergies; ll1 - PMHx: 07:05 Diabetes - IDDM; ll1 - Immunization history:: Adult Immunizations up to date. - Infectious Disease History:: Denies. - Family history:: not pertinent. - Social history:: Smoking status: Patient denies any tobacco usage or history of. ROS: 06:57 Constitutional: Negative for fever, chills, and weight loss, Eyes: Negative for injury, tessie pain, redness, and discharge, ENT: Negative for injury, pain, and discharge, Neck: Negative for injury, pain, and swelling, Cardiovascular: Negative for chest pain, palpitations, and edema, Respiratory: Negative for shortness of breath, cough, wheezing, and pleuritic chest pain, Back: Negative for injury and pain, : Negative for injury, bleeding, discharge, and swelling, MS/Extremity: Negative for injury and deformity, Skin: Negative for injury, rash, and discoloration, Neuro: Negative for headache, weakness, numbness, tingling, and seizure, Psych: Negative for depression, anxiety, suicide ideation, homicidal ideation, and hallucinations, Allergy/Immunology: Negative for hives, rash, and allergies, Endocrine: Negative for neck swelling, polydipsia, polyuria, polyphagia, and marked weight changes, Hematologic/Lymphatic: Negative for swollen nodes, abnormal bleeding, and unusual bruising, 06:57 Abdomen/GI: Positive for abdominal pain, nausea and vomiting, of the posterior aspect of right lateral abdomen, posterior aspect of left lateral abdomen, right lower quadrant and left lower quadrant, Exam: 06:57 Constitutional: This is a well developed, well nourished patient who is awake, alert, tessie and in no acute distress. Head/Face: Normocephalic, atraumatic. Eyes: Pupils equal round and reactive to light, extra-ocular motions intact. Lids and lashes normal. Conjunctiva and sclera are non-icteric and not injected. Cornea within normal limits. Periorbital areas with no swelling, redness, or edema. ENT: Nares patent. No nasal discharge, no septal abnormalities noted. Tympanic membranes are normal and external auditory canals are clear. Oropharynx with no redness, swelling, or masses, exudates, or evidence of obstruction, uvula midline. Mucous membranes moist. Neck: Trachea midline, no thyromegaly or masses palpated, and no cervical lymphadenopathy. Supple, full range of motion without nuchal rigidity, or vertebral point tenderness. No Meningismus. Chest/axilla: Normal chest wall appearance and motion. Nontender with no deformity. No lesions are appreciated. Cardiovascular: Regular rate and rhythm with a normal S1 and S2. No gallops, murmurs, or rubs. Normal PMI, no JVD. No pulse deficits. Respiratory: Lungs have equal breath sounds bilaterally, clear to auscultation and percussion. No rales, rhonchi or wheezes noted. No increased work of breathing, no retractions or nasal flaring. Abdomen/GI: Soft, non-tender, with normal bowel sounds. No distension or tympany. No guarding or rebound. No evidence of tenderness throughout. Skin: Warm, dry with normal turgor. Normal color with no rashes, no lesions, and no evidence of cellulitis. MS/ Extremity: Pulses equal, no cyanosis. Neurovascular intact. Full, normal range of motion., bilateral aka Neuro: Awake and alert, GCS 15, oriented to person, place, time, and situation. Cranial nerves II-XII grossly intact. Motor strength 5/5 in all extremities. Sensory grossly intact. Cerebellar exam normal. Normal gait. Psych: Awake, alert, with orientation to person, place and time. Behavior, mood, and affect are within normal limits. 06:57 Musculoskeletal/extremity: Circulation is intact in all extremities. Sensation intact. Compartment Syndrome exam of affected extremity: is normal. Weight bearing: able to fully bear weight, 09:37 ECG was reviewed by the Attending Physician. ms3 Vital Signs: 07:30 BP 159 / 106; Pulse 96; Resp 22; Temp 98.9(O); Pulse Ox 100% on R/A; Weight 71.67 kg; hb Height 5 ft. 5 in. ; 08:16 BP 130 / 82; Pulse 84; Resp 20; Pulse Ox 99% on R/A; hb 09:15 BP 118 / 74; Pulse 96; Resp 18; Pulse Ox 98% ; jp5 09:22 BP 118 / 74; Pulse 81; Resp 16; Pulse Ox 99% on R/A; hb 10:30 BP 114 / 76; Pulse 96; Resp 18; Pulse Ox 98% ; jp5 11:15 BP 117 / 77; Pulse 88; Resp 20; Pulse Ox 95% ; jp5 07:30 Body Mass Index 26.29 (71.67 kg, 165.1 cm) hb MDM: 06:51 Medical Screening Exam initiated tessie 06:59 Differential diagnosis: arthritis, strain, Nonspecific abd pain, gastritis, tessie cholecystitis, pancreatitis, appendicitis, diverticulitis, viral gastroenteritis, gastroenteritis, appendicitis. Data reviewed: vital signs, nurses notes, lab test result(s), EKG, radiologic studies. Consideration of Admission/Observation Escalation of care including admission/observation considered. I considered the following discharge prescriptions or medication management in the emergency department Medications were administered in the Emergency Department. See MAR. Independent interpretation of the following test(s) in the Emergency Department EKG: See my EKG interpretation above. Test considered but Not performed: Ultrasound no abd usg. 07:33 Transition of care: Care assumed from Virgilio Diallo MD. ED course: 19-year-old female ms3 with past medical history of diabetes presenting for nausea, vomiting, abdominal pain. In discussion with patient her mother this has been ongoing for 1 month. Patient's mother states patient has had multiple hospitalizations for similar symptoms. Patient has had 1 episode of DKA through these episodes. Patient is currently pending labs. 11:19 Counseling: I had a detailed discussion with the patient and/or guardian regarding the ms3 historical points, exam findings, and any diagnostic results supporting the discharge/admit diagnosis, lab results, the need for outpatient follow up, to return to the emergency department if symptoms worsen or persist or if there are any questions or concerns that arise at home. ED course: Patient heart rate 81, gap 12, bicarb 19, pH 7.53. Patient currently not in DKA. Patient's symptoms have improved since arrival to the emergency department, patient is alert and oriented x 4, in no apparent distress, nontoxic-appearing, speaking full sentences. Patient to follow-up with primary care physician 2 to 3 days. Patient understands and agrees with plan. All questions were answered. Return precautions were discussed to include worsening symptoms, or any other concerns.. 06/11 06:52 Order name: CBC with Diff; Complete Time: 09:32 [facility] 06/11 06:52 Order name: CMP; Complete Time: 09:32 [facility] 06/11 06:52 Order name: Lipase; Complete Time: 09:32 [facility] 06/11 06:52 Order name: Test, Urine; Complete Time: 09: [facility] 06/11 06:52 Order name: UA Rfx Yariel Cult if indicated; Complete Time: 09:32 [facility] 06/11 06:56 Order name: Troponin High Sensitivity; Complete Time: 09:32 [facility] 06/11 07:31 Order name: VBG; Complete Time: 09:32 ms3 06/11 07:41 Order name: Glucose, Ancillary Testing; Complete Time: 09:32 EDMS 06/11 08:24 Order name: Urine Culture EDMI 06/11 06:56 Order name: EKG; Complete Time: 06:56 [facility] 06/11 06:52 Order name: IV Saline Lock; Complete Time: 08:00 [facility] 06/11 06:52 Order name: Labs collected and sent; Complete Time: 08:00 [facility] 06/11 06:56 Order name: EKG - Nurse/Tech; Complete Time: 08:00 [facility] EC:37 Rate is 114 beats/min. Rhythm is regular. QRS [place] is Normal. OR interval is normal. ms3 QRS interval is normal. Clinical impression: Sinus tachycardia. Interpreted by me. Reviewed by me. Administered Medications: 07:32 CANCELLED (Physician Discretion): ns 0.9% 1000 ml IV at 1000 ml once; to be given as a ms3 bolus over 60 minutes 07:32 CANCELLED (Physician Discretion): ondansetron 4 mg IVP once; over 2 minutes ms3 07:45 Drug: Famotidine IVP 20 mg IVP once; dilute with 10 mL 0.9% NaCl; give over 2 minutes jp5 Route: IVP; Site: right antecubital; 08:15 Follow up: Response: No adverse reaction jp5 07:45 Drug: Ondansetron IVP 4 mg IVP once; over 2 minutes Route: IVP; Site: right antecubital;jp5 08:15 Follow up: Response: No adverse reaction jp5 07:58 Drug: NS 0.9% IV 1000 ml IV at 1 bolus Per protocol; to be given as a bolus over 60 jp5 minutes Route: IV; Rate: 1 bolus; Site: right antecubital; Delivery: Primary tubing; 09:00 Follow up: Response: No adverse reaction; IV Status: Completed infusion; IV converted jp5 to saline lock; IV Intake: 1000ml 11:45 Drug: Ondansetron PO 4 mg PO once Route: PO; jp5 Point of Care Testing: Blood Glucose: 07:30 Blood Glucose: 195 mg/dL; hb Ranges: Critical Glucose Levels:Adult <50 mg/dl or >400 mg/dl <40 mg/dl or >180 mg/dl Disposition Summary: 06/11/25 11:17 Discharge Ordered Notes: Location: Home ms3 Condition: Stable ms3 Diagnosis - Nausea with vomiting, unspecified ms3 - Other specified diabetes mellitus with hyperglycemia ms3 Followup: ms3 - With: Andrew Tate DO - When: 2 - 3 days - Reason: Recheck today's complaints Discharge Instructions: - Discharge Summary Sheet ms3 - Hyperglycemia ms3 - Nausea and Vomiting, Adult ms3 Forms: - Medication Reconciliation Form ms3 - Antibiotic Education ms3 - Prescription Opioid Use ms3 - Patient Portal Instructions ms3 - Leadership Thank You Letter ms3 Prescriptions: - ondansetron 4 mg Oral Tablet,disintegrating - take 1 tablet ORAL route every 8 hours as needed for nausea and vomiting; 15 ms3 tablet; Refills: 0, Product Selection Permitted Signatures: Dispatcher [employer] EDMS Virgilio Diallo MD MD cha Baxter, Heather, RN RN Umang Erazo RN RN ll1 Jaswinder Chaves DO DO ms3 Della Junior RN RN cm10 Joana Chong RN RN jp5 Corrections: (The following items were deleted from the chart) 06:53 06:53 CBC+H.LAB.BRZ ordered. EDMS EDMS 06:53 06:53 COMPREHENSIVE METABOLIC PANEL+C.LAB.BRZ ordered. EDMS EDMS 06:53 06:53 LIPASE+C.LAB.BRZ ordered. EDMS EDMS 06:53 06:53 Test, Urine+UC.LAB.BRZ ordered. EDMS EDMS 06:53 06:53 UA Rfx Yariel Cult if indicated+U.LAB.BRZ ordered. EDMS EDMS 07:32 06:56 NS 0.9% IV 1000 ml IV at 1000 ml once; to be given as a bolus over 60 minutes ms3 ordered. tessie 07:32 07:20 Ondansetron IVP 4 mg IVP once; over 2 minutes ordered. tessie ms3 07:32 07:32 Ondansetron IVP 4 mg IVP once; over 2 minutes ordered. ms3 ms3 07:32 07:32 NS 0.9% IV 1000 ml IV at 1000 ml once; to be given as a bolus over 60 minutes ms3 ordered. ms3 11:21 11:19 ED course: Patient heart rate 81, gap 12, bicarb 19, pH 7.55. Patient currently ms3 not in DKA. Patient's symptoms have improved since arrival to the emergency department, patient is alert and oriented x 4, in no apparent distress, nontoxic-appearing, speaking full sentences. Patient to follow-up with primary care physician 2 to 3 days. Patient understands and agrees with plan. All questions were answered. Return precautions were discussed to include worsening symptoms, or any other concerns.. ms3
[2025-06-11] MEDS ORDERED: ONDANSETRON 4 MG (ODT) TAB ONE (11:43)
[2025-06-11 14:17] VITALS: TEMP 98.9
[2025-06-11 14:26] VITALS: BP 117/77; O2SAT 95
== END 2025-06-11 12:07 | disposition home or self-care (01) ==
LOC: ER 06:46
DX: E13.65 Other specified diabetes mellitus with hyperglycemia (principal)
CPT/HCPCS: 93005; 87088; 85025; 81001; 87086; 36415; 81025; 82947; 84484; 83690; 80053; 82803; Q0162; J2405; J7030